=== PATIENT | male | born 1950 | race Caucasian/White ===

== ENCOUNTER 2017-01-10 13:44 | Inpatient (IN) ==
--- NOTE | 2017-01-10 14:21 | Emergency Department Note ---
Disposition Clinical Impression: Congestive heart failure Qualifiers: Congestive heart failure type: unspecified congestive heart failure type Congestive heart failure chronicity: acute Qualified Code(s): I50.9 - Heart failure, unspecified Disposition: Admitted As Inpatient Condition: Good Referrals: Jani Slaughter MD [Primary Care Provider] - Forms: ED Satisfaction Letter Time of Disposition: 15:38 SOB HPI - General Chief Complaint: ED Shortness of Breath/Dyspnea Stated Complaint: "wanting to see if he has water on his lungs" Time Seen by Provider: 01/10/17 14:00 Source: patient, family Mode of arrival: ambulatory Limitations: no limitations Nursing Notes Reviewed: Yes Vital Signs Reviewed: Yes - History of Present Illness 66-year-old with a history CHF comes in with increasing shortness of breath for the last couple of days. His weight is up saw him and he had some chest pain yesterday. Said no recent cardiac workup he does follow with cardiology here. Pt Subjective Complaint: shortness of breath Onset (ago): day(s) Context: other (3 CHF) Severity: mild, moderate, now resolved Consistency/Duration: intermittent, now resolved Improves with: nothing Worsens with: nothing Known history of: congestive heart failure Associated symptoms: Reports: chest pain Treatment prior to arrival: none - Related Data Home Medications Medication Instructions Recorded Confirmed Aspirin Enteric Coated [Aspirin EC] 81 mg PO BID 05/16/15 05/16/15 Atorvastatin [Lipitor] 40 mg PO DAILY 05/16/15 05/16/15 Carvedilol [Coreg] 25 mg PO BID 05/16/15 05/16/15 Clopidogrel [Plavix] 75 mg PO DAILY 05/16/15 05/16/15 Fenofibrate [Lofibra] 145 mg PO DAILY 05/16/15 05/16/15 Isosorbide MONOnitrate (24 HR) 120 mg PO DAILY 05/16/15 05/16/15 [Imdur] Ledipasvir/Sofosbuvir [Harvoni 1 tab PO DAILY 05/16/15 05/16/15 90-400 mg Tablet] Losartan [Cozaar] 25 mg PO DAILY 05/16/15 05/16/15 Potassium Chloride [Klor-Con 10 meq PO DAILY 05/16/15 05/16/15 Sprinkle] Ranolazine [Ranexa] 1,000 mg PO BID 05/16/15 05/16/15 Previous Rx's Medication Instructions Recorded Budesonide/Formoterol 160/4.5 2 puff IH BIDR #1 inhaler 05/21/15 [Symbicort] Furosemide [Lasix] 40 mg PO BID #60 tablet 05/21/15 GuaiFENesin/Codeine [ROBITUSSIN 5 ml PO Q6HR PRN #200 ml 05/21/15 w/CODEINE] Promethazine/Codeine 5 ml PO Q4HR PRN #100 udc 05/21/15 [Phenergan/Codeine] Allergies Allergy/AdvReac Type Severity Reaction Status Date / Time No Known Allergies Allergy Unverified 03/28/15 09:25 All systems ED: reviewed and negative except as stated. Constitutional: Denies: fever, chills, weakness, weight change Eyes: Denies: eye pain, eye discharge, vision change ENT ED: Denies: ear pain, throat pain, dental pain, hearing loss, epistaxis, congestion, dysphagia Cardiovascular: Reports: dyspnea on exertion. Denies: chest pain, palpitations , edema, syncope Respiratory: Reports: dyspnea. Denies: cough, wheezes, hemoptysis, stridor Gastrointestinal: Denies: abdominal pain, nausea, vomiting, diarrhea, constipation, hematemesis, melena, hematochezia Genitourinary: Denies: urgency, dysuria, frequency, hematuria Musculoskeletal: Denies: back pain, neck pain, arthralgia, myalgia Integumentary: Denies: rash, abrasion, lesions Neurological: Denies: headache, weakness, numbness, paresthesias, confusion, abnormal gait, vertigo Psychiatric: Denies: anxiety, depression, suicidal thoughts, homicidal thoughts , auditory hallucinations, visual hallucinations Endocrine: Denies: fatigue Hematological/Lymphatic: Denies: easy bleeding, easy bruising Allergic/Immunologic: Denies: facial swelling, urticaria Past Medical History - Past Medical History Medical history: Reports: CHF, COPD, hyperlipidemia, hypertension Surgical history: Reports: pacemaker/AICD Psychiatric history: Reports: no psych history - Social History Smoking Status: Former smoker Smokeless Tobacco Status: No Alcohol use: Reports: none Drug use: Reports: none Physical Exam - General Limitations: no limitations General appearance: alert - Head Head exam: atraumatic, normocephalic, normal inspection - Eye Eye exam: Present: normal appearance, PERRL, EOMI - ENT ENT exam: normal exam, normal oropharynx, mucous membranes moist - Neck Neck exam: Present: normal inspection, full ROM, trachea midline - Chest Chest inspection: Present: normal inspection, symmetric chest wall rise - Respiratory Respiratory exam: Present: normal lung sounds bilaterally, prolonged expiratory phase - Cardiovascular Cardiovascular exam: Present: regular rate, normal rhythm, normal heart sounds - Abdominal Exam Abdominal exam: Present: soft, Non-Tender. Absent: tenderness, distention, guarding, rebound, rigidity - Extremities Exam Extremities exam: Present: normal inspection, full ROM. Absent: tenderness, pedal edema - Expanded Lower Extremity Exam Neurovascular/Tendon exam: Absent: motor deficit, sensory deficit, tendon deficit - Back Exam Back exam: Present: normal inspection, full ROM. Absent: tenderness - Neurological Exam Neurological exam: Present: alert, oriented X3 - Psychiatric Psychiatric exam: Present: normal affect, normal mood - Skin Skin exam: Present: warm, dry, intact, normal color Course - Reevaluation(s) Reevaluation #1: Patient with a history of CHF comes in with increasing shortness of breath increasing weight. Chest x-ray consistent with the pulmonary edema with an elevated BNP of 925. He will be admitted for diuresis. Time: 15:36 - Consultations Consultation #1: Stressed with Dixon Huerta, admit. Time: 15:41 Vital Signs Temperature 97.4 F L 01/10/17 13:53 Pulse Rate 70 01/10/17 13:53 Respiratory Rate 20 01/10/17 13:53 Blood Pressure 123/80 01/10/17 13:53 O2 Sat by Pulse Oximetry 82 01/10/17 13:53 Temperature 97.4 F L 01/10/17 13:53 Pulse Rate 57 01/10/17 15:09 Respiratory Rate 18 01/10/17 15:09 Blood Pressure 107/66 01/10/17 15:09 O2 Sat by Pulse Oximetry 92 01/10/17 15:16 Oxygen Delivery Oxygen Delivery Nasal Cannula Shortness of Breath/Dyspnea - Lab Data Result diagrams: 01/10/17 14:34 01/10/17 14:34 Lab Results 01/10/17 01/10/17 01/10/17 Range/Units 14:34 14:34 14:34 WBC 7.2 (4.3-11.1) K/mcL RBC 4.60 (4.19-5.50) M/mcL Hgb 15.6 (12.9-16.9) g/dL Hct 47.0 (37.5-50.1) % MCV 102.2 H (83.0-100.0) fL MCH 33.9 H (28.0-33.3) pg MCHC 33.2 (31.6-35.5) g/dL RDW 13.7 (11.5-14.5) % Plt Count 153 (140-400) K/mcL MPV 9.9 (9.4-12.4) fL Immature Gran % 0.4 (0-4) % Seg Neutrophils % 64.8 % Lymphocytes % 24.3 % Monocytes % 5.8 % Eosinophils % 4.0 % Basophils % 0.7 % Neutrophils # 4.7 (1.6-8.9) K/mcL Lymphocytes # 1.8 (0.6-4.6) K/mcL Monocytes # 0.4 (0.0-1.3) K/mcL Eosinophils # 0.3 (0.0-0.6) K/mcL Basophils # 0.1 (0.0-0.2) K/mcL PT 16.3 H (9.4-12.1) Seconds INR 1.5 APTT 30.5 (26.0-36.0) Seconds Sodium 138 (136-145) mEq/L Potassium 3.8 (3.5-4.5) mEq/L Chloride 101 (98-109) mEq/L Carbon Dioxide 27 (19-29) mEq/L BUN 14 (8-26) mg/dL Creatinine 1.07 (0.72-1.25) mg/dL Est GFR ( Amer) > 60 (> 60) Est GFR (Non-Af Amer) > 60 (> 60) BUN/Creatinine Ratio 13 (6-26) Glucose 114 H (70-99) mg/dL Calculated Osmolality 287 (280-300) Lactic Acid (0.5-2.2) mmol/L Calcium 9.7 (8.6-10.8) mg/dL Total Bilirubin (0.2-1.2) mg/dL Direct Bilirubin (0.0-0.5) mg/dL Indirect Bilirubin (0.0-1.2) mg/dL AST (5-34) Units/L ALT (0-55) Units/L Alkaline Phosphatase (38-126) Units/L Troponin I (0-0.03) ng/mL B-Natriuretic Peptide (0-100) pg/mL Serum Total Protein (6.0-8.3) g/dL Albumin (3.5-5.0) g/dL Globulin (2.4-3.5) g/dL Albumin/Globulin Ratio (1.1-2.2) 01/10/17 01/10/17 01/10/17 Range/Units 14:34 14:34 14:34 WBC (4.3-11.1) K/mcL RBC (4.19-5.50) M/mcL Hgb (12.9-16.9) g/dL Hct (37.5-50.1) % MCV (83.0-100.0) fL MCH (28.0-33.3) pg MCHC (31.6-35.5) g/dL RDW (11.5-14.5) % Plt Count (140-400) K/mcL MPV (9.4-12.4) fL Immature Gran % (0-4) % Seg Neutrophils % % Lymphocytes % % Monocytes % % Eosinophils % % Basophils % % Neutrophils # (1.6-8.9) K/mcL Lymphocytes # (0.6-4.6) K/mcL Monocytes # (0.0-1.3) K/mcL Eosinophils # (0.0-0.6) K/mcL Basophils # (0.0-0.2) K/mcL PT (9.4-12.1) Seconds INR APTT (26.0-36.0) Seconds Sodium (136-145) mEq/L Potassium (3.5-4.5) mEq/L Chloride (98-109) mEq/L Carbon Dioxide (19-29) mEq/L BUN (8-26) mg/dL Creatinine (0.72-1.25) mg/dL Est GFR ( Amer) (> 60) Est GFR (Non-Af Amer) (> 60) BUN/Creatinine Ratio (6-26) Glucose (70-99) mg/dL Calculated Osmolality (280-300) Lactic Acid 1.8 (0.5-2.2) mmol/L Calcium (8.6-10.8) mg/dL Total Bilirubin (0.2-1.2) mg/dL Direct Bilirubin (0.0-0.5) mg/dL Indirect Bilirubin (0.0-1.2) mg/dL AST (5-34) Units/L ALT (0-55) Units/L Alkaline Phosphatase (38-126) Units/L Troponin I 0.01 (0-0.03) ng/mL B-Natriuretic Peptide 925 H (0-100) pg/mL Serum Total Protein (6.0-8.3) g/dL Albumin (3.5-5.0) g/dL Globulin (2.4-3.5) g/dL Albumin/Globulin Ratio (1.1-2.2) /11/21 Range/Units 14:34 WBC (4.3-11.1) K/mcL RBC (4.19-5.50) M/mcL Hgb (12.9-16.9) g/dL Hct (37.5-50.1) % MCV (83.0-100.0) fL MCH (28.0-33.3) pg MCHC (31.6-35.5) g/dL RDW (11.5-14.5) % Plt Count (140-400) K/mcL MPV (9.4-12.4) fL Immature Gran % (0-4) % Seg Neutrophils % % Lymphocytes % % Monocytes % % Eosinophils % % Basophils % % Neutrophils # (1.6-8.9) K/mcL Lymphocytes # (0.6-4.6) K/mcL Monocytes # (0.0-1.3) K/mcL Eosinophils # (0.0-0.6) K/mcL Basophils # (0.0-0.2) K/mcL PT (9.4-12.1) Seconds INR APTT (26.0-36.0) Seconds Sodium (136-145) mEq/L Potassium (3.5-4.5) mEq/L Chloride (98-109) mEq/L Carbon Dioxide (19-29) mEq/L BUN (8-26) mg/dL Creatinine (0.72-1.25) mg/dL Est GFR ( Amer) (> 60) Est GFR (Non-Af Amer) (> 60) BUN/Creatinine Ratio (6-26) Glucose (70-99) mg/dL Calculated Osmolality (280-300) Lactic Acid (0.5-2.2) mmol/L Calcium (8.6-10.8) mg/dL Total Bilirubin 3.7 H (0.2-1.2) mg/dL Direct Bilirubin 0.5 (0.0-0.5) mg/dL Indirect Bilirubin 3.2 H (0.0-1.2) mg/dL AST 15 (5-34) Units/L ALT 12 (0-55) Units/L Alkaline Phosphatase 82 (38-126) Units/L Troponin I (0-0.03) ng/mL B-Natriuretic Peptide (0-100) pg/mL Serum Total Protein 7.5 (6.0-8.3) g/dL Albumin 3.7 (3.5-5.0) g/dL Globulin 3.8 H (2.4-3.5) g/dL Albumin/Globulin Ratio 1.0 L (1.1-2.2)
[2017-01-10 14:40] LABS: Basophils # 0.1 K/mcL (0.0-0.2); Basophils % 0.7 %; Eosinophils # 0.3 K/mcL (0.0-0.6); Hemoglobin 15.6 g/dL (12.9-16.9); Immature Granulocytes % 0.4 % (0-4); Lymphocytes # 1.8 K/mcL (0.6-4.6); Lymphocytes % 24.3 %; Mean Corpuscular HGB Conc 33.2 g/dL (31.6-35.5); Mean Corpuscular Hemoglobin 33.9 pg (28.0-33.3); Mean Corpuscular Volume 102.2 fL (83.0-100.0); Mean Platelet Volume 9.9 fL (9.4-12.4); Monocytes # 0.4 K/mcL (0.0-1.3); Monocytes % 5.8 %; Neutrophils # 4.7 K/mcL (1.6-8.9); Platelet Count 153 K/mcL (140-400); Red Cell Distribution Width 13.7 % (11.5-14.5); Segmented Neutrophils % 64.8 %
[2017-01-10 14:47] LABS: INR 1.5; Prothrombin Time 16.3 Seconds (9.4-12.1)
[2017-01-10 14:49] LABS: Activated Partial Thrombo Time 30.5 Seconds (26.0-36.0)
[2017-01-10 14:53] LABS: BUN/Creatinine Ratio 13 (6-26); Blood Urea Nitrogen 14 mg/dL (8-26); Calcium 9.7 mg/dL (8.6-10.8); Carbon Dioxide 27 mEq/L (19-29); Chloride 101 mEq/L (98-109); Glucose 114 mg/dL (70-99); Osmolality,Calculated 287 (280-300); Potassium 3.8 mEq/L (3.5-4.5); Sodium 138 mEq/L (136-145); eGFR For African Americans > 60 (> 60); eGFR For Non-African Americans > 60 (> 60)
[2017-01-10 14:55] LABS: Albumin 3.7 g/dL (3.5-5.0); Bilirubin,Direct 0.5 mg/dL (0.0-0.5); Bilirubin,Indirect 3.2 mg/dL (0.0-1.2); Bilirubin,Total 3.7 mg/dL (0.2-1.2); Globulin 3.8 g/dL (2.4-3.5); Total Protein 7.5 g/dL (6.0-8.3)
[2017-01-10] MEDS ORDERED: Furosemide 40 MG/4 ML VIAL IVP ONE (15:35)
[2017-01-10] MEDS ORDERED: Naloxone 0.4 MG/ML INJ IVP PRN (19:54)
--- NOTE | 2017-01-10 20:29 | Event Note ---
Date of Encounter: 01/10/17 Time of Encounter: 20:29 1. Acute systolic CHF exacerbation The patient has been taking 60 mg of Lasix twice a day for the past couple months without success, he says he drinks 2 jugs of fluids every day. BNP is 925. Discussed with him the option of switching to Bumex and he agrees to take Bumex 1 mg IV twice a day while hospitalized. May discharged on Bumex was feeling better Strict I's and O's and daily weight, echocardiogram 2. History of COPD oxygen dependent, no exacerbation, ordered DuoNeb nebs as needed 3. Hyperlipidemia, stable 4. CAD, stable 5. Indirect hyperbilirubinemia, possible history of hep C Order ultrasound of the abdomen, possible cirrhosis Omeprazole for GI prophylaxis and subcutaneous heparin for deep prophylaxis. The patient will be admitted for observation. Full code. Time spent on this admission 40 minutes. H&P to be completed by Dr. Palacios
--- NOTE | 2017-01-10 20:46 | Internal Med History&Physical ---
<Arjun Browning - Last Filed: 01/10/17 21:03> Date of Encounter: 01/10/17 Time of Encounter: 20:42 Assessment and Plan (1) Acute on chronic systolic (congestive) heart failure Current visit: Yes Status: Acute 66M hx oc asystolic CHF, COPD on 2L O2, hep C complains of worsening sob of 2 weeks Shortness of breath refractory to increasing oxygen supplementation to 2.5 L, increasing Lasix to 60 g twice a day BNP elevated at 925 Lung exam: fine crackles b/l Mild pedal edema Chest x-ray shows bilateral pulmonary edema Echo in 2015: LVEF of 40% with enlarged left atrium, pulmonary hypertension states he is compliant with medicaiton, diet Plan: Repeat echocardiogram: With prior history of pulmonary attention and history of COPD, dyspnea contributing to shortness of breath. Furthermore, worsening LH function may also contribute. Bumex 1 mg BID Strict I's and O's Cardiac diet, fluid restriction diet 1.5L Cardiac telemetry (2) COPD (chronic obstructive pulmonary disease) Current visit: Yes Status: Acute Patient is a history of COPD Currently he is not in any exacerbation We will continue home Symbicort, supplement oxygen and start DuoNeb. Qualifiers: COPD type: emphysema Emphysema type: panlobular Qualified Code(s): J43.1 - Panlobular emphysema (3) CAD (coronary artery disease) Current visit: Yes Status: Acute History of coronary disease, s/p CABG Denies any chest pain. Continue aspirin, atorvastatin, Coreg, Plavix, Imdur, ranolazine Qualifiers: Coronary Disease-Associated Artery/Lesion type: bypass graft [place] vs. transplanted heart: [place] heart Associated angina: without angina Qualified Code(s): I25.810 - Atherosclerosis of coronary artery bypass graft(s) without angina pectoris (4) Hep C w/o coma, chronic Current visit: Yes Status: Chronic Patient history of hep C treating with Michael We will continue this His indirect bilirubin is elevated. albumin WNL We will do a liver ultrasound to identify any stages of cirrhosis which really contributing to shortness of breath/fluid overload state. (5) HTN (hypertension) Current visit: Yes Status: Acute hx of HTN stable continue losartan Qualifiers: Hypertension type: essential hypertension Qualified Code(s): I10 - Essential (primary) hypertension (6) DVT prophylaxis Current visit: Yes Status: Acute Heparin subcutaneous (7) Mediastinal lymphadenopathy Current visit: Yes Status: Chronic patient being followed up outpatient for this last CT scan shows stable mediastinal lymphnode with moderate emphasema and cardiomegaly Internal Medicine - H&P: HPI Chief complaint: Shortness of breath Admitted From: Home Plans for Post Hospital Care: Home History of present illness: Mr. West is a 66 year old male history of COPD, former smoker systolic CHF, hep C, CAD presents with chief complaint of shortness of breath started 2 weeks ago and has progressively worsened with nonproductive cough, lower extremity edema. Shortness of breath proportion to exertion, lying flat. Patient states that he is on 2 L of oxygen at home for COPD, emphysema but he had to increase that to 3 and half liters. Furthermore he had to increase his Lasix regimen of 40 twice a day to 60 BID but this has not helped improve his symptoms. His past echo showed EF of 40% and patient has an AICD. He also has a history of hep C and is on medical therapy. Past Med Surg Social Fam HX - Past Medical History Medical history: CHF, COPD, hyperlipidemia, hypertension, other (Hepatitis C) Psychiatric history: anxiety - Past Surgical History Surgical History: coronary bypass (CABG), herniorrhaphy, pacemaker/AICD - Social History Smoking Status: Former smoker Smokeless Tobacco Status: No Alcohol use: rarely Drug use: none - Family History Mother History Unknown: Yes Adopted: Yes Internal Medicine - H&P: Meds Aspirin Enteric Coated [Aspirin EC] 81 mg PO BID 05/16/15 [History] Atorvastatin [Lipitor] 40 mg PO DAILY 05/16/15 [History] Carvedilol [Coreg] 25 mg PO BID 05/16/15 [History] Clopidogrel [Plavix] 75 mg PO DAILY 05/16/15 [History] Fenofibrate [Lofibra] 145 mg PO DAILY 05/16/15 [History] Isosorbide MONOnitrate (24 HR) [Imdur] 120 mg PO DAILY 05/16/15 [History] Ledipasvir/Sofosbuvir [Harvoni 90-400 mg Tablet] 1 tab PO DAILY 05/16/15 [ History] Losartan [Cozaar] 25 mg PO DAILY 05/16/15 [History] Potassium Chloride [Klor-Con Sprinkle] 10 meq PO DAILY 05/16/15 [History] Ranolazine [Ranexa] 1,000 mg PO BID 05/16/15 [History] Budesonide/Formoterol 160/4.5 [Symbicort] 2 puff IH BIDR #1 inhaler 05/21/15 [Rx ] Furosemide [Lasix] 40 mg PO BID #60 tablet 05/21/15 [Rx] GuaiFENesin/Codeine [ROBITUSSIN w/CODEINE] 5 ml PO Q6HR PRN #200 ml 05/21/15 [Rx ] Promethazine/Codeine [Phenergan/Codeine] 5 ml PO Q4HR PRN #100 udc 05/21/15 [Rx] Allergies No Known Allergies Allergy (Unverified 03/28/15 09:25) All Systems PM: A 10-system review of systems was performed and is negative for pertinent findings except as documented above in the HPI. Review of systems: Constitutional: Denies fever, chills HEENT: Denies headache, vision changes, neck pain, sore throat, rhinorrhea Heart: Denies chest pain palpitations Lungs: Poor shortness of breath and cough Abdomen: Denies abdominal pain nausea vomiting diarrhea Back: Reports back pain Kidney: Denies dysuria, hematuria Extremities: Reports mild lower extremity swelling, denies pain Neuro: Reports chronic numbness and tingling - Constitutional Vitals: Temp Pulse Resp BP Pulse Ox 97.7 F 61 12 117/67 91 01/10/17 19:49 01/10/17 19:49 01/10/17 19:49 01/10/17 19:49 01/10/17 19:49 - Other Additional findings: General: Alert and oriented to place time and situation. Without distress HEENT: Head atraumatic, normocephalic, EOMI, PERRLA, absent Lymphadenopathy, Moist Mucous Membranes, Heart: Regular rate and rhythm with no murmur Lungs: Fine bibasilar crackles Abdomen: Soft nontender, nondistended positive bowel sounds Extremities: Mild pitting edema Neuro: Cranial nerves II through XII intact, sensation equal bilaterally, strength upper and lower extremity 5/5, alert oriented 3 Vascular: Pedal and radial pulses 2 out of 4 Internal Med - H&P Results - Labs CBC & Chem 7: 01/10/17 14:34 01/10/17 14:34 <Bob Miranda H - Last Filed: 01/11/17 06:32> Date of Encounter: 01/11/17 Internal Medicine - H&P: HPI History of present illness: Mr. West is a 66 year old male All Systems PM: A 10-system review of systems was performed and is negative for pertinent findings except as documented above in the HPI. - Constitutional Vitals: Temp Pulse Resp BP Pulse Ox 98.2 F 71 16 100/58 93 01/11/17 03:48 01/11/17 03:48 01/11/17 03:48 01/11/17 03:48 01/11/17 03:48 Internal Med - H&P Results - Labs CBC & Chem 7: 01/11/17 04:24 01/11/17 04:24 Labs: Short CBC 01/11/17 Range/Units 04:24 WBC 7.6 (4.3-11.1) K/mcL Hgb 13.9 D (12.9-16.9) g/dL Hct 42.2 (37.5-50.1) % Plt Count 147 (140-400) K/mcL Neutrophils # 5.0 (1.6-8.9) K/mcL BMP 01/11/17 04:24 Sodium 137 Potassium 3.9 Chloride 102 Carbon Dioxide 28 BUN 14 Creatinine 0.98 Glucose 101 H Calcium 9.3 - Attending Attestation 1. Acute systolic CHF exacerbation The patient has been taking 60 mg of Lasix twice a day for the past couple months without success, he says he drinks 2 jugs of fluids every day. BNP is 925. Discussed with him the option of switching to Bumex and he agrees to take Bumex 1 mg IV twice a day while hospitalized. May be discharged on Bumex if feeling better Strict I's and O's and daily weight, echocardiogram 2. History of COPD oxygen dependent, no exacerbation, ordered DuoNeb nebs as needed 3. Hyperlipidemia, stable 4. CAD, stable 5. Indirect hyperbilirubinemia, possible history of hep C Order ultrasound of the abdomen, possible cirrhosis Omeprazole for GI prophylaxis and subcutaneous heparin for deep prophylaxis. The patient will be admitted for observation. Full code. Time spent on this admission 40 minutes. I examined this patient and my medical decision-making was reviewed with the Resident Physician. I agree with the documented findings, disposition and treatment plan as described except to the extent set forth below.
[2017-01-10] MEDS: Ranolazine 500 MG TAB.ER.12H PO SCH (20:52)
[2017-01-10] MEDS: Aspirin Enteric Coated 81 MG Tablet PO SCH (20:53)
[2017-01-10] MEDS: Fenofibrate 54 MG TABLET PO SCH (20:53)
[2017-01-10] MEDS: *HR* Heparin 5,000 UNIT/ML VIAL SQ SCH (20:55)
[2017-01-10] MEDS: Bumetanide 1 MG/4 ML VIAL IVP SCH (20:56)
[2017-01-10] MEDS: Budesonide/Formoterol 160/4.5 MDI IH SCH (22:40)
[2017-01-10] MEDS: Ipratropium/Albuterol Neb 3 ML IH PRN (22:42)
[2017-01-11 04:55] LABS: Basophils # 0.1 K/mcL (0.0-0.2); Basophils % 0.8 %; Eosinophils # 0.3 K/mcL (0.0-0.6); Eosinophils % 3.4 %; Hematocrit 42.2 % (37.5-50.1); Immature Granulocytes % 0.3 % (0-4); Lymphocytes # 1.7 K/mcL (0.6-4.6); Lymphocytes % 22.5 %; Mean Corpuscular HGB Conc 32.9 g/dL (31.6-35.5); Mean Corpuscular Hemoglobin 33.2 pg (28.0-33.3); Mean Corpuscular Volume 100.7 fL (83.0-100.0); Monocytes # 0.6 K/mcL (0.0-1.3); Monocytes % 7.4 %; Platelet Count 147 K/mcL (140-400); Red Blood Count 4.19 M/mcL (4.19-5.50); Red Cell Distribution Width 13.4 % (11.5-14.5); Segmented Neutrophils % 65.6 %
[2017-01-11 05:00] LABS: BUN/Creatinine Ratio 14 (6-26); Blood Urea Nitrogen 14 mg/dL (8-26); Carbon Dioxide 28 mEq/L (19-29); Chloride 102 mEq/L (98-109); Glucose 101 mg/dL (70-99); Potassium 3.9 mEq/L (3.5-4.5); Sodium 137 mEq/L (136-145); eGFR For African Americans > 60 (> 60); eGFR For Non-African Americans > 60 (> 60)
[2017-01-11 05:01] LABS: Calcium 9.3 mg/dL (8.6-10.8); Hemoglobin 13.9 g/dL (12.9-16.9); Osmolality,Calculated 285 (280-300)
[2017-01-11] MEDS: *HR* Heparin 5,000 UNIT/ML VIAL SQ SCH ×3 (05:45→21:17)
[2017-01-11] MEDS: Budesonide/Formoterol 160/4.5 MDI IH SCH ×2 (07:55→20:36)
[2017-01-11] MEDS: Ipratropium/Albuterol Neb 3 ML IH PRN (07:57)
[2017-01-11] MEDS: Bumetanide 1 MG/4 ML VIAL IVP SCH ×2 (08:53→18:20)
[2017-01-11] MEDS: Fenofibrate 54 MG TABLET PO SCH (08:53)
[2017-01-11] MEDS: SOFOSBUVIR PO SCH (08:55)
[2017-01-11] MEDS: Aspirin Enteric Coated 81 MG Tablet PO SCH ×2 (08:55→21:17)
[2017-01-11] MEDS: Ranolazine 500 MG TAB.ER.12H PO SCH ×2 (08:55→21:16)
[2017-01-11] MEDS: LEDIPASVIR PO SCH (08:55)
[2017-01-11] MEDS: Isosorbide MONOnitrate (24 HR) 60 MG TAB.ER.24H PO SCH (08:55)
[2017-01-11] MEDS ORDERED: Fenofibrate 54 MG TABLET PO SCH (09:00)
--- NOTE | 2017-01-11 15:23 | Electrocardiograph Report ---
[address] [place] [address] Test Date: 2017-01-10 Pat Name: Eric West Department: 104 Room: 3B44 Gender: M Nurse Prn: : 1950 Requested By: Praveen Diaz Order Number: [id number] Reading MD: Brian Ferraro MD Measurements Intervals [place] Rate: 60 P: -47 LA: 195 QRS: -44 QRSD: 172 T: -4 QT: 528 QTc: 528 Interpretive Statements SINUS RHYTHM WITH PVCS RIGHT BUNDLE BRANCH BLOCK LEFT VENTRICULAR HYPERTROPHY AND ST-T CHANGE INFERIOR MYOCARDIAL INFARCTION, PROBABLY OLD Electronically Signed On 01-11-2017 8:15:26 EDT by Brian Ferraro MD
--- NOTE | 2017-01-11 18:53 | Internal Med Progress Note ---
Date of Encounter: 01/11/17 Time of Encounter: 15:45 - Assessment and plan (1) Acute on chronic systolic (congestive) heart failure Current Visit: Yes Status: Acute Assessment and plan: Patient with history of systolic heart failure, acute exacerbation. Reports increasing shortness of breath and abdominal distention for 4-6 weeks. He reports respiratory failure with increased oxygen demand for the last 2-3 months. Patient also has history of COPD. BNP is elevated at 925. Lungs clear diminished posteriorly. +1 bilateral lower extremity nonpitting pedal edema. Chest x-ray showed bilateral pulmonary edema. Echocardiogram today showed LVEF of 35% with mildly dilated left ventricle. There is global segmental LV systolic dysfunction with indeterminate diastolic function. RV hypokinesis, mild MR and a visualized device lead in right atrium and right ventricle. The study is primarily unchanged from last echocardiogram in 2014, at that time LVEF is 40%. Continue telemetry Bumex 1 mg twice a day Strict intake and output Cardiac diet and fluid restriction 1.5 L. Cardiology consult if no improvement (2) Hypoxia Current Visit: No Status: Acute Assessment and plan: Patient reports hypoxia at home with exertion even when wearing O2. He reports increased O2 demand for the last 2-3 months. Currently wearing 4 L and satting anywhere from 90-93%. Titrate oxygen to maintain sats greater than 92%. (3) CAD (coronary artery disease) Current Visit: Yes Status: Acute Assessment and plan: History of coronary artery disease, status post CABG. He denies chest pain today. Continue aspirin, statin, Coreg, Plavix, Imdur, ranolazine. Continue telemetry. Qualifiers: Coronary Disease-Associated Artery/Lesion type: bypass graft [place] vs. transplanted heart: [place] heart Associated angina: without angina Qualified Code(s): I25.810 - Atherosclerosis of coronary artery bypass graft(s) without angina pectoris (4) COPD (chronic obstructive pulmonary disease) Current Visit: Yes Status: Acute Assessment and plan: No acute exacerbation. Continue oxygen and titrate as needed to maintain sats greater than 92%. Continue home medications. Lungs are clear and diminished. Duo nebs as needed. Patient reports dry, nonproductive cough for the last 4-6 months intermittently. Qualifiers: COPD type: emphysema Emphysema type: panlobular Qualified Code(s): J43.1 - Panlobular emphysema (5) Hep C w/o coma, chronic Current Visit: Yes Status: Chronic Assessment and plan: History of hepatitis C, patient finished Harvoni treatment. Follow-up outpatient for further evaluation. Patient had a liver ultrasound today that showed coarsened hepatic echotexture and subtle surface nodularity suggesting early cirrhosis. No suspicious focal lesion. Otherwise normal study. Patient is aware of these findings. (6) HTN (hypertension) Current Visit: Yes Status: Acute Assessment and plan: Chronic. Continue home medications. Patient appears to be a little hypotensive. Hold blood pressure medications for systolic below 100. Qualifiers: Hypertension type: essential hypertension Qualified Code(s): I10 - Essential (primary) hypertension (7) HLD (hyperlipidemia) Current Visit: No Status: Acute Assessment and plan: Chronic. Continue home medications. Lipitor 40 mg by mouth daily. Qualifiers: Hyperlipidemia type: unspecified Qualified Code(s): E78.5 - Hyperlipidemia , unspecified (8) Mediastinal lymphadenopathy Current Visit: Yes Status: Chronic - Time Spent With Patient less than 15 minutes - Subjective Interval history: Patient was seen and assessed at 1545. He reports a lengthy history of abdominal distention and shortness of breath for 6-8 weeks. He has had a nonproductive cough for 4-6 months that is intermittent and dry. Recent diagnosis of COPD/emphysema with home O2. Patient states that he has taken prednisone and has become better temporarily. He reports that he has had increased oxygen demand 2-3 months and has had to wear 4 L at home. Currently is on 4 L satting 90-93%. He reports for over the last 2-3 months even when he has his oxygen on he becomes hypoxic with exertion and states that his sats would drop below 90. He does see pulmonology here. He says he is unable to do pulmonary rehabilitation due to chronic pain and decreased mobility. - Constitutional Vitals: Temp Pulse Resp BP Pulse Ox 97.7 F 68 17 90/47 91 01/11/17 14:26 01/11/17 14:26 01/11/17 14:26 01/11/17 14:26 01/11/17 14:26 General appearance: Present: cooperative, A&O X 3, pleasant, no acute distress, answers questions appropriately - Head Head exam: Present: normal inspection - Eye Eye exam: Present: normal appearance, conjuntiva pink - ENT ENT exam: Present: mucous membranes moist, normal exam - Neck Neck exam general surgery: Present: normal inspection. Absent: lymphadenopathy , tenderness - Respiratory Respiratory exam: Present: decreased breath sounds, CTAB. Absent: accessory muscle use, chest wall tenderness, rales, rhonchi, stridor, wheezes - Cardiovascular Cardiovascular exam: Present: RRR, +S1, +S2. Absent: clicks, diastolic murmur, gallop, systolic murmur - GI/Abdominal GI/Abdominal exam: Present: distended, firm. Absent: bruit, hepatomegaly, tenderness - Extremities Exam Extremities exam: Present: normal capillary refill, warm, radial pulses palpable and symetrical. Absent: joint swelling, mottling, pedal edema, tenderness - Neurological Exam Neurological exam: Present: alert, oriented X3, no focal deficits, strengths equal and symetr throughout. Absent: facial droop, speech deficit - Skin Skin exam: Present: dry, intact, normal color, warm. Absent: rash, urticaria Internal Medicine: Result - Labs CBC & Chem 7: 01/11/17 04:24 01/11/17 04:24 Labs: Short CBC 01/11/17 Range/Units 04:24 WBC 7.6 (4.3-11.1) K/mcL Hgb 13.9 D (12.9-16.9) g/dL Hct 42.2 (37.5-50.1) % Plt Count 147 (140-400) K/mcL Neutrophils # 5.0 (1.6-8.9) K/mcL BMP 01/11/17 04:24 Sodium 137 Potassium 3.9 Chloride 102 Carbon Dioxide 28 BUN 14 Creatinine 0.98 Glucose 101 H Calcium 9.3 - ABG Interpretation ABG results: PT/INR, D-dimer PT 16.3 Seconds (9.4-12.1) H 01/10/17 14:34 - Impressions Impressions Liver Ultrasound 01/11/17 10:30 IMPRESSION: 1. Coarsened hepatic echotexture and subtle surface nodularity suggesting early cirrhosis. No suspicious focal lesion. 2. Otherwise normal study. D/ / Josesito Padron MD / Josesito Padron MD Interpreting Provider: Josesito Padron MD Echocardiogram 01/11/17 19:57 Impressions: LVEF 35%. Mildly dilated left ventricle. Global and segmental left ventricular systolic dysfunction. Indeterminate diastolic function. Normal right ventriclular size with mild hypokinesis. Mild mitral regurgitation. No evidence of pulmonary hypertension. A device lead was visualized in the right atrium and right ventricle. Left Ventricular Wall Motion: Rest Echo Findings The apex, apical anterior, mid anterior, basal anterior, apical septal, mid inferior septal, basal inferior septal, apical lateral, mid anterior lateral, basal anterior lateral, mid anterior septal and basal anterior septal [place] were hypokinetic. The apical inferior, mid inferior, basal inferior, mid inferior lateral and basal inferior lateral port[place] were akinetic. Findings: Study Quality * Technically adequate exam. ECG Findings * Paced rhythm. Left Ventricle * LVEF 35%. * Normal LV wall thickness. * Mildly dilated left ventricle. * Global and segmental left ventricular systolic dysfunction. * Atypical septal motion consistent with paced rhythm. * Indeterminate diastolic function. Right Ventricle * Normal right ventriclular size with mild hypokinesis. Left Atrium * Moderately dilated left atrium. Right Atrium * Moderately dilated right atrium. Interatrial Septum * Interatrial septum not well evaluated. Aortic Valve * Trileaflet aortic valve. * Mildly calcified aortic valve leaflets. * Trace aortic regurgitation. * No aortic stenosis. Mitral Valve * Mildly thickened mitral valve leaflets. * Mild mitral regurgitation. * No mitral stenosis. Tricuspid Valve * Normal tricuspid valve structure and function. * Trace tricuspid regurgitation. * No evidence of pulmonary hypertension. Pulmonic Valve * Normal pulmonic valve structure and function. * Trace pulmonic regurgitation. Aorta * Normally sized aortic root. Pericardium * The pericardium appears normal. IVC * Normal IVC dimensions and inspiratory collapse. Pulmonary Artery * Normal visualized portions of the main pulmonary artery. Device lead * A device lead was visualized in the right atrium and right ventricle. Consult Discharge Plan - Plan Referrals: Jani Slaughter MD [Primary Care Provider] -
[2017-01-12] MEDS ORDERED: Acetaminophen 325 MG TABLET PO PRN (00:59)
[2017-01-12 05:12] LABS: Basophils # 0.1 K/mcL (0.0-0.2); Eosinophils # 0.3 K/mcL (0.0-0.6); Eosinophils % 4.6 %; Hematocrit 44.9 % (37.5-50.1); Hemoglobin 15.1 g/dL (12.9-16.9); Immature Granulocytes % 0.4 % (0-4); Lymphocytes # 1.7 K/mcL (0.6-4.6); Lymphocytes % 25.2 %; Mean Corpuscular HGB Conc 33.6 g/dL (31.6-35.5); Mean Corpuscular Hemoglobin 33.8 pg (28.0-33.3); Mean Corpuscular Volume 100.4 fL (83.0-100.0); Mean Platelet Volume 11.4 fL (9.4-12.4); Monocytes # 0.4 K/mcL (0.0-1.3); Monocytes % 6.3 %; Neutrophils # 4.2 K/mcL (1.6-8.9); Platelet Count 169 K/mcL (140-400); Red Blood Count 4.47 M/mcL (4.19-5.50); Red Cell Distribution Width 13.4 % (11.5-14.5); Segmented Neutrophils % 62.5 %
[2017-01-12 05:20] LABS: BUN/Creatinine Ratio 13 (6-26); Blood Urea Nitrogen 14 mg/dL (8-26); Calcium 9.6 mg/dL (8.6-10.8); Carbon Dioxide 25 mEq/L (19-29); Chloride 102 mEq/L (98-109); Glucose 113 mg/dL (70-99); Osmolality,Calculated 283 (280-300); Sodium 136 mEq/L (136-145); eGFR For African Americans > 60 (> 60); eGFR For Non-African Americans > 60 (> 60)
[2017-01-12 05:22] LABS: Potassium 3.7 mEq/L (3.5-4.5)
[2017-01-12] MEDS: *HR* Heparin 5,000 UNIT/ML VIAL SQ SCH ×3 (05:49→21:45)
[2017-01-12] MEDS: Budesonide/Formoterol 160/4.5 MDI IH SCH ×2 (08:31→20:42)
[2017-01-12] MEDS: ZETIA 10 MG PO SCH (10:17)
[2017-01-12] MEDS: Bumetanide 1 MG/4 ML VIAL IVP SCH ×2 (10:18→17:24)
[2017-01-12] MEDS: Isosorbide MONOnitrate (24 HR) 60 MG TAB.ER.24H PO SCH (10:18)
[2017-01-12] MEDS: LEDIPASVIR PO SCH (10:18)
[2017-01-12] MEDS: Fenofibrate 54 MG TABLET PO SCH (10:18)
[2017-01-12] MEDS: SOFOSBUVIR PO SCH (10:18)
[2017-01-12] MEDS: Aspirin Enteric Coated 81 MG Tablet PO SCH ×2 (10:18→21:45)
[2017-01-12] MEDS: Ranolazine 500 MG TAB.ER.12H PO SCH ×2 (10:19→21:47)
[2017-01-12] MEDS: Ipratropium/Albuterol Neb 3 ML IH PRN (13:46)
--- NOTE | 2017-01-12 16:48 | Internal Med Progress Note ---
Date of Encounter: 01/12/17 Time of Encounter: 15:00 - Assessment and plan (1) Congestive heart failure Current Visit: Yes Status: Acute Assessment and plan: Acute on chronic combined systolic and diastolic heart failure. Current ejection fraction is 35%, prior ejection fraction 40%. Indeterminate diastolic function. Patient is on furosemide at home, changed to Bumex during this admission. No pedal edema. Patient has continued increased need for oxygenation. At home, he is on 2 L continuously, he is on 4.5 here and he continues to be short of breath above his norm. Repeat chest CT pending. Holding his Bumex at this time secondary to hypotension. Of note, patient is aware that he is on a 1.5 L fluid restricted diet however yesterday, he only drank about 500 mL. He was instructed not to drink less than 1.5 L or more. Renal function remains normal-Will trend. Breath sounds are diminished bilateral lower lobes, repeat imaging and ABGs pending. Examination is not consistent with COPD exacerbation. BNP trending down. ITS Impressions Chest X-Ray 01/10/17 14:01 IMPRESSION: Borderline pulmonary vascular congestion and subtle hazy opacity throughout both lungs raises the possibility of early pulmonary edema. D/ / Stefano Rhodes MD / Stefano Rhodes MD Interpreting Provider: Stefano Rhodes MD Liver Ultrasound 01/11/17 10:30 IMPRESSION: 1. Coarsened hepatic echotexture and subtle surface nodularity suggesting early cirrhosis. No suspicious focal lesion. 2. Otherwise normal study. D/ / Josesito Padron MD / Josesito Padron MD Interpreting Provider: Josesito Padron MD :4 Echocardiogram 01/11/17 19:57 Impressions: LVEF 35%. Mildly dilated left ventricle. Global and segmental left ventricular systolic dysfunction. Indeterminate diastolic function. Normal right ventriclular size with mild hypokinesis. Mild mitral regurgitation. No evidence of pulmonary hypertension. A device lead was visualized in the right atrium and right ventricle. Qualifiers: Congestive heart failure type: combined Congestive heart failure chronicity : acute on chronic Qualified Code(s): I50.43 - Acute on chronic combined systolic (congestive) and diastolic (congestive) heart failure (2) COPD (chronic obstructive pulmonary disease) Current Visit: Yes Status: Chronic Assessment and plan: It does not appear as if the patient is an acute exacerbation of his COPD. No wheezing appreciated on examination. Consistent more with pulmonary edema and fluid overload. Patient is on 2 L per nasal cannula continuously at home. He stopped smoking 20 years ago. Patient stating he has only been on oxygen for the past 2 years. He does have a moist, nonproductive cough, will add mucolytics. He also endorses shortness of breath above his norm, will increase DuoNeb treatments. Qualifiers: COPD type: emphysema Emphysema type: panlobular Qualified Code(s): J43.1 - Panlobular emphysema (3) Acute encephalopathy Current Visit: Yes Status: Resolved Assessment and plan: Patient had an episode overnight in which he woke up sweating and hot, then he started to see "little people like they were in a [employer] game" where the sharps container is located. Patient fully remembers this episode. He states that he called for help and states that he felt better after drinking a whole can of Sprite. He states that he was unable to go back to bed. Unclear causation, could be delirium. Could be hypoxia with possible CO2 retention-checking ABGs and repeat chest CT. Patient is also noted to be on rather high doses of Valium and oxycodone confirmed with [facility] report and continued at this time as he has been on these dosages for quite some time and he could be going through withdrawal as well. LFTs were normal upon arrival, hepatic encephalopathy less likely. He has been alert and oriented x3 without any further episodes since last night. (4) CAD (coronary artery disease) Current Visit: Yes Status: Chronic Assessment and plan: History of coronary artery disease, status post CABG. Continues to deny chest pain. Continue aspirin, statin, Coreg, Plavix, Imdur, ranolazine. Continue telemetry. Qualifiers: Coronary Disease-Associated Artery/Lesion type: bypass graft [place] vs. transplanted heart: [place] heart Associated angina: without angina Qualified Code(s): I25.810 - Atherosclerosis of coronary artery bypass graft(s) without angina pectoris (5) Hep C w/o coma, chronic Current Visit: Yes Status: Chronic Assessment and plan: History of hepatitis C, patient finished Harvoni treatment. LFTs normal. Patient denies abdominal pain. No jaundice on examination. Liver ultrasound consistent with early cirrhosis. Patient is aware of these findings and will followup outpatient. (6) HTN (hypertension) Current Visit: Yes Status: Chronic Assessment and plan: Currently hypotensive. Holding diuretics and his ARB. He remains alert and oriented x3 with good perfusion throughout. ABGs and chest CT pending. Hold blood pressure medications for systolic below 100. Will continue to trend and adjust medications as indicated Qualifiers: Hypertension type: essential hypertension Qualified Code(s): I10 - Essential (primary) hypertension (7) HLD (hyperlipidemia) Current Visit: No Status: Chronic Assessment and plan: Chronic. Lipid panel checked earlier this month, unremarkable. Continue home medications. Lipitor 40 mg by mouth daily. (8) Pacemaker Current Visit: No Status: Chronic (9) Mediastinal lymphadenopathy Current Visit: Yes Status: Chronic Assessment and plan: Stable per imaging, follow-up outpatient (10) DVT prophylaxis Current Visit: Yes Status: Acute Assessment and plan: Subcutaneous heparin - Subjective Interval history: Patient seen and examined. On examination, patient resting supine in bed. Patient endorsing shortness of breath above his norm stating he is not yet feeling better since admission. He is endorsing a moist, unproductive cough. He is very upset regarding the event overnight in which he became hot, sweaty, and started to hallucinate. - Constitutional Vitals: Temp Pulse Resp BP Pulse Ox 98.3 F 94 14 75/42 89 01/12/17 15:07 01/12/17 15:07 01/12/17 15:07 01/12/17 15:07 01/12/17 15:07 General appearance: Present: cooperative, mild distress, A&O X 3, pleasant, answers questions appropriately - Head Head exam: Present: atraumatic, normocephalic - Eye Eye exam: Present: PERRL, conjuntiva pink, sclera anicteric Pupils: Present: PERRL - Neck Neck exam general surgery: Present: supple, trachea midline. Absent: lymphadenopathy - Respiratory Respiratory exam: Present: accessory muscle use, decreased breath sounds, respiratory distress (mild). Absent: rales, rhonchi, wheezes - Cardiovascular Cardiovascular exam: Present: RRR, +S1, +S2. Absent: diastolic murmur, gallop, rubs, systolic murmur - GI/Abdominal GI/Abdominal exam: Present: normal bowel sounds, soft, no peritoneal signs. Absent: distended, tenderness - Extremities Exam Extremities exam: Present: warm, radial pulses palpable and symmetrical. Absent : calf tenderness, cyanotic, pedal edema - Neurological Exam Neurological exam: Present: alert, CN II-XII intact, normal gait, oriented X3, no focal deficits, strengths equal and symetr throughout. Absent: pronater drift, facial droop, speech deficit - Skin Skin exam: Present: dry, intact, normal color, warm Internal Medicine: Result - Labs CBC & Chem 7: 01/12/17 04:20 01/12/17 04:20 Labs: Short CBC 01/12/17 Range/Units 04:20 WBC 6.7 (4.3-11.1) K/mcL Hgb 15.1 (12.9-16.9) g/dL Hct 44.9 (37.5-50.1) % Plt Count 169 (140-400) K/mcL Neutrophils # 4.2 (1.6-8.9) K/mcL BMP 01/12/17 04:20 Sodium 136 Potassium 3.7 Chloride 102 Carbon Dioxide 25 BUN 14 Creatinine 1.10 Glucose 113 H Calcium 9.6 - ABG Interpretation ABG results: PT/INR, D-dimer PT 16.3 Seconds (9.4-12.1) H 01/10/17 14:34 Consult Discharge Plan - Plan Referrals: Jani Slaughter MD [Primary Care Provider] -
[2017-01-12] MEDS: diazePAM 5 MG TABLET PO SCH ×2 (17:27→23:38)
[2017-01-12] MEDS: *HR* OxyCODONE Immed Rel 15 MG TABLET PO SCH ×2 (17:27→23:38)
[2017-01-12 18:42] LABS: ABG Base Excess 1.6 mEq/L (-2.0 to 3.0); ABG HCO3 25.9 mEQ/L (21-27); ABG Oxygen Saturation 91 % (95-98); ABG PCO2 39 mmHg (35-45); ABG PH 7.43 pH Units (7.32-7.45); ABG PO2 58 mmHg (85-104); ABG TCO2 27.1 mEq/L (20-26)
[2017-01-12] MEDS: Ipratropium/Albuterol Neb 3 ML IH SCH (20:39)
[2017-01-13] MEDS: Ipratropium/Albuterol Neb 3 ML IH SCH ×6 (00:20→20:47)
[2017-01-13] MEDS: *HR* OxyCODONE Immed Rel 15 MG TABLET PO SCH ×6 (01:59→21:41)
[2017-01-13] MEDS: *HR* Heparin 5,000 UNIT/ML VIAL SQ SCH ×3 (05:41→21:30)
[2017-01-13] MEDS: diazePAM 5 MG TABLET PO SCH ×5 (05:42→23:24)
[2017-01-13 06:44] LABS: Basophils # 0.1 K/mcL (0.0-0.2); Eosinophils # 0.4 K/mcL (0.0-0.6); Eosinophils % 4.4 %; Hematocrit 42.1 % (37.5-50.1); Hemoglobin 13.9 g/dL (12.9-16.9); Immature Granulocytes % 0.4 % (0-4); Lymphocytes # 2.1 K/mcL (0.6-4.6); Lymphocytes % 26.3 %; Mean Corpuscular Hemoglobin 33.7 pg (28.0-33.3); Mean Corpuscular Volume 101.9 fL (83.0-100.0); Mean Platelet Volume 11.1 fL (9.4-12.4); Monocytes # 0.5 K/mcL (0.0-1.3); Monocytes % 6.7 %; Neutrophils # 4.9 K/mcL (1.6-8.9); Platelet Count 162 K/mcL (140-400); Red Blood Count 4.13 M/mcL (4.19-5.50); Red Cell Distribution Width 13.4 % (11.5-14.5); Segmented Neutrophils % 61.2 %
[2017-01-13 07:02] LABS: BUN/Creatinine Ratio 11 (6-26); Blood Urea Nitrogen 14 mg/dL (8-26); Calcium 9.3 mg/dL (8.6-10.8); Carbon Dioxide 30 mEq/L (19-29); Chloride 99 mEq/L (98-109); Glucose 118 mg/dL (70-99); Osmolality,Calculated 284 (280-300); Potassium 4.1 mEq/L (3.5-4.5); Sodium 136 mEq/L (136-145); eGFR For African Americans > 60 (> 60); eGFR For Non-African Americans 57 (> 60)
[2017-01-13] MEDS: Budesonide/Formoterol 160/4.5 MDI IH SCH ×2 (08:05→20:47)
[2017-01-13] MEDS: Isosorbide MONOnitrate (24 HR) 60 MG TAB.ER.24H PO SCH (10:09)
[2017-01-13] MEDS: Fenofibrate 54 MG TABLET PO SCH (10:09)
[2017-01-13] MEDS: Ranolazine 500 MG TAB.ER.12H PO SCH ×2 (10:09→20:22)
[2017-01-13] MEDS: Aspirin Enteric Coated 81 MG Tablet PO SCH ×2 (10:09→20:22)
[2017-01-13] MEDS: ZETIA 10 MG PO SCH (10:10)
[2017-01-13] MEDS: LEDIPASVIR PO SCH (10:11)
[2017-01-13] MEDS: SOFOSBUVIR PO SCH (10:11)
--- NOTE | 2017-01-13 20:19 | Internal Med Progress Note ---
Date of Encounter: 01/13/17 Time of Encounter: 18:00 (x45 minutes) - Assessment and plan (1) Congestive heart failure Current Visit: Yes Status: Acute Assessment and plan: Acute on chronic combined systolic and diastolic heart failure. Current ejection fraction is 35%, prior ejection fraction 40%. Indeterminate diastolic function. Patient is on furosemide at home, changed to Bumex during this admission but currently being held 2/2 NIDHI overnight. No pedal edema. Patient has continued increased need for oxygenation. At home, he is on 2 L continuously. He was on 4.5 L here and is currently tolerating 4 L. However, with slight movement or even standing up to brush his teeth, patient desaturates into the low 80s and upper 70s. Repeat chest CT revealing chronic ILD versus mild edema. CTA was performed which ruled out a PE and again revealed his severe emphysema and fibrosis without acute processes. His mediastinal lymphadenopathy is also unchanged. He is compensating well, ABGs unremarkable. On examination, mildly increased work of breathing but overall, he appears comfortable but he is very anxious on examination. BNP trended down. Unclear causation at this time, we will bring pulmonology on board and appreciate their recommendations. Of note, his daughter is a nurse here and asked several questions. She asked if he would benefit from BiPAP however he is compensated clinically and does not clinically need BiPAP at this time. Would try to avoid BiPAP given that he has severe emphysema. Would add CPAP if clinically indicated although at this point, it is currently not indicated. She also asked if I thought a bronchoscopy would benefit him, I do not see any reason for bronchoscopy at this time. There is no evidence that there is any type of infectious process in his lungs. I have added high-dose IV methylprednisolone, will monitor. I have increased his mucolytic's, he feels as if his mucus is loosened up a little bit but his cough remains nonproductive. Appreciate pulmonology recommendations- will call in am. ITS Impressions Chest X-Ray 01/10/17 14:01 IMPRESSION: Borderline pulmonary vascular congestion and subtle hazy opacity throughout both lungs raises the possibility of early pulmonary edema. D/ / Stefano Rhodes MD / Stefano Rhodes MD Interpreting Provider: Stefano Rhodes MD Liver Ultrasound 01/11/17 10:30 IMPRESSION: 1. Coarsened hepatic echotexture and subtle surface nodularity suggesting early cirrhosis. No suspicious focal lesion. 2. Otherwise normal study. D/ / Josesito Padron MD / Josesito Padron MD Interpreting Provider: Josesito Padron MD :4 Echocardiogram 01/11/17 19:57 Impressions: LVEF 35%. Mildly dilated left ventricle. Global and segmental left ventricular systolic dysfunction. Indeterminate diastolic function. Normal right ventriclular size with mild hypokinesis. Mild mitral regurgitation. No evidence of pulmonary hypertension. A device lead was visualized in the right atrium and right ventricle. Chest CT 01/12/17 16:33 IMPRESSION: There is mild diffuse septal thickening possibly related to very early developing mild edema or chronic interstitial lung disease. There is slightly more focal bibasilar dependent opacities, likely related to atelectasis. D/ / Terri Bryan MD / Terri Bryan MD Interpreting Provider: Terri Bryan MD Chest CTA 01/13/17 15:42 IMPRESSION: 1. No evidence of pulmonary embolism. 2. Continued evidence of severe emphysema and fibrosis in the lower lungs. 3. Dependent atelectasis bilaterally. 4. Mild mediastinal lymphadenopathy, unchanged. D/ / Stefano Rhodes MD / Stefano Rhodes MD Interpreting Provider: Stefano Rhodes MD Qualifiers: Congestive heart failure type: combined Congestive heart failure chronicity : acute on chronic Qualified Code(s): I50.43 - Acute on chronic combined systolic (congestive) and diastolic (congestive) heart failure (2) COPD (chronic obstructive pulmonary disease) Current Visit: Yes Status: Chronic Assessment and plan: It does not appear as if the patient is an acute exacerbation of his COPD however will treat as he continues with shortness of breath above his norm as well as marked desaturations with minimal exertion. No wheezing appreciated on examination. Consistent more with pulmonary edema and fluid overload; Pulmonology now onboard. Patient is on 2 L per nasal cannula continuously at home. He stopped smoking 20 years ago. Patient stating he has only been on oxygen for the past 2 years. He does have a moist, nonproductive cough, will increase his mucolytics. He also endorses shortness of breath above his norm despite increased DuoNeb treatments. He was not clinically improving so he sought a second opinion from another demonstrator knitting from [place] (Dr Linder) who started him on a new inhaler called Stiolo with tiotropium and oloctaterol. He states he was on this new inhaler for 4 days prior to presentation and felt as if it did not work as well as his Symbicort. At home, patient is only on Symbicort and now Stiolo (which is essentially Spiriva (LAAC) with a LABA). Basically, patient was changed from an inhaler with a LABA + INH glucocort to an inhaler with a LABA and an LAAC. If he is to remain on this new inhaler, would recommend adding back in an inhaled glucocorticoid i.e. budesonide. Appreciate pulmonology recommendations as well. Unclear why he is clinically decompensating and has increased need for oxygenation. Appreciate pulmonology recommendations. Qualifiers: COPD type: emphysema Emphysema type: panlobular Qualified Code(s): J43.1 - Panlobular emphysema (3) Acute and chronic respiratory failure Current Visit: Yes Status: Acute Assessment and plan: Unclear causation. Could be natural progression of his severe emphysema and COPD however he has not smoked in 20 years, is not exposed to any cigarette smoke. Unclear causation on his decline over the past 2 years and more specifically over the past couple weeks. Pulmonology is now on board. He has been on 2 L per nasal cannula continuously for the past 2 years. His family states that he had bronchitis, was admitted, was placed on supplemental oxygen 2 years ago, and has never been taken back off. He is currently requiring 4 L continuously (4) Acute encephalopathy Current Visit: Yes Status: Resolved Assessment and plan: Patient remains alert and oriented 3 with no further episodes of confusion or hallucinations. 01/12/17 Patient had an episode overnight in which he woke up sweating and hot, then he started to see "little people like they were in a casino game" where the sharps container is located. Patient fully remembers this episode. He states that he called for help and states that he felt better after drinking a whole can of Sprite. He states that he was unable to go back to bed. Unclear causation, could be delirium. Could be hypoxia with possible CO2 retention-checking ABGs and repeat chest CT. Patient is also noted to be on rather high doses of Valium and oxycodone confirmed with [facility] report and continued at this time as he has been on these dosages for quite some time and he could be going through withdrawal as well. LFTs were normal upon arrival, hepatic encephalopathy less likely. He has been alert and oriented x3 without any further episodes since last night. (5) CAD (coronary artery disease) Current Visit: Yes Status: Chronic Assessment and plan: History of coronary artery disease, status post CABG. Continues to deny chest pain. Continue aspirin, statin, Coreg, Plavix, Imdur, ranolazine. Continue telemetry. Qualifiers: Coronary Disease-Associated Artery/Lesion type: bypass graft [place] vs. transplanted heart: [place] heart Associated angina: without angina Qualified Code(s): I25.810 - Atherosclerosis of coronary artery bypass graft(s) without angina pectoris (6) Hep C w/o coma, chronic Current Visit: Yes Status: Chronic Assessment and plan: History of hepatitis C, patient finished Harvoni treatment. LFTs normal. Patient denies abdominal pain. No jaundice on examination. Liver ultrasound consistent with early cirrhosis. Patient is aware of these findings and will followup outpatient. (7) HTN (hypertension) Current Visit: Yes Status: Chronic Assessment and plan: Hypotensive yesterday, held his diuretics and his ARB. Currently normotensive, will continue to trend and adjust medications as indicated. Qualifiers: Hypertension type: essential hypertension Qualified Code(s): I10 - Essential (primary) hypertension (8) HLD (hyperlipidemia) Current Visit: No Status: Chronic Assessment and plan: Chronic. Lipid panel checked earlier this month, unremarkable. Continue home medications. Lipitor 40 mg by mouth daily. (9) Pacemaker Current Visit: No Status: Chronic (10) Mediastinal lymphadenopathy Current Visit: Yes Status: Chronic Assessment and plan: Stable per imaging, follow-up outpatient (11) DVT prophylaxis Current Visit: Yes Status: Acute Assessment and plan: Subcutaneous heparin - Time Spent With Patient Greater than 35 minutes (lengthy discussion wiht patient, and daughter) - Subjective Interval history: Patient seen and examined. Spoke to the patient, his , and his daughter at great length. Patient and family are concerned that he continues to decompensate with unknown etiology. They are concerned that he continues to be more short of breath than usual, he continues to need more and more oxygen. They are very concerned about the downward trajectory over the last 2 years but more specifically over the past week or 2. Patient stating he is eating well. He states he was able to sleep better last night and denies any events overnight. - Constitutional Vitals: Temp Pulse Resp BP Pulse Ox 97.8 F 86 16 119/75 88 01/13/17 19:02 01/13/17 19:02 01/13/17 19:02 01/13/17 19:02 01/13/17 19:02 General appearance: Present: cooperative, mild distress, A&O X 3, pleasant, answers questions appropriately - Head Head exam: Present: atraumatic, normocephalic - Eye Eye exam: Present: PERRL, conjuntiva pink, sclera anicteric Pupils: Present: PERRL - Neck Neck exam general surgery: Present: supple, trachea midline. Absent: lymphadenopathy - Respiratory Respiratory exam: Present: accessory muscle use, decreased breath sounds, respiratory distress (mild). Absent: rales, rhonchi, wheezes - Cardiovascular Cardiovascular exam: Present: RRR, +S1, +S2. Absent: diastolic murmur, gallop, rubs, systolic murmur - GI/Abdominal GI/Abdominal exam: Present: normal bowel sounds, soft, no peritoneal signs. Absent: distended, tenderness - Extremities Exam Extremities exam: Present: warm, radial pulses palpable and symmetrical. Absent : calf tenderness, cyanotic, pedal edema - Neurological Exam Neurological exam: Present: alert, CN II-XII intact, oriented X3, no focal deficits, strengths equal and symetr throughout. Absent: pronater drift, facial droop, speech deficit - Skin Skin exam: Present: dry, intact, pallor, warm Internal Medicine: Result - Labs CBC & Chem 7: 01/13/17 04:50 01/13/17 04:50 Labs: Short CBC 01/13/17 Range/Units 04:50 WBC 8.0 (4.3-11.1) K/mcL Hgb 13.9 (12.9-16.9) g/dL Hct 42.1 (37.5-50.1) % Plt Count 162 (140-400) K/mcL Neutrophils # 4.9 (1.6-8.9) K/mcL BMP 01/13/17 04:50 Sodium 136 Potassium 4.1 Chloride 99 Carbon Dioxide 30 H BUN 14 Creatinine 1.26 H Glucose 118 H Calcium 9.3 - ABG Interpretation ABG results: ABG ABG pH 7.43 pH Units (7.32-7.45) 01/12/17 18:33 ABG pCO2 39 mmHg (35-45) 01/12/17 18:33 ABG pO2 58 mmHg (85-104) L 01/12/17 18:33 ABG O2 Saturation 91 % (95-98) L 01/12/17 18:33 PT/INR, D-dimer PT 16.3 Seconds (9.4-12.1) H 01/10/17 14:34 - Impressions Impressions Chest CT 01/12/17 16:33 IMPRESSION: There is mild diffuse septal thickening possibly related to very early developing mild edema or chronic interstitial lung disease. There is slightly more focal bibasilar dependent opacities, likely related to atelectasis. D/ / Terri Byran MD / Terri Bryan MD Interpreting Provider: Terri Bryan MD Chest CTA 01/13/17 15:42 IMPRESSION: 1. No evidence of pulmonary embolism. 2. Continued evidence of severe emphysema and fibrosis in the lower lungs. 3. Dependent atelectasis bilaterally. 4. Mild mediastinal lymphadenopathy, unchanged. D/ / Stefano Rhodes MD / Stefano Rhodes MD Interpreting Provider: Stefano Rhodes MD Consult Discharge Plan - Plan Referrals: Jani Slaughter MD [Primary Care Provider] -
[2017-01-13] MEDS: methylPREDNISolone 125 MG/2 ML VIAL IVP SCH (20:22)
[2017-01-14] MEDS: Ipratropium/Albuterol Neb 3 ML IH SCH ×7 (00:05→23:32)
[2017-01-14] MEDS: methylPREDNISolone 125 MG/2 ML VIAL IVP SCH ×3 (01:41→14:48)
[2017-01-14 01:47] LABS: BUN/Creatinine Ratio 11 (6-26); Blood Urea Nitrogen 13 mg/dL (8-26); Calcium 10.1 mg/dL (8.6-10.8); Carbon Dioxide 26 mEq/L (19-29); Chloride 100 mEq/L (98-109); Glucose 150 mg/dL (70-99); Osmolality,Calculated 281 (280-300); Sodium 134 mEq/L (136-145); eGFR For African Americans > 60 (> 60); eGFR For Non-African Americans > 60 (> 60)
[2017-01-14 01:51] LABS: Potassium 5.1 mEq/L (3.5-4.5)
[2017-01-14] MEDS: diazePAM 5 MG TABLET PO SCH ×3 (04:08→18:44)
[2017-01-14] MEDS: *HR* OxyCODONE Immed Rel 15 MG TABLET PO SCH ×3 (05:27→20:53)
[2017-01-14] MEDS: *HR* Heparin 5,000 UNIT/ML VIAL SQ SCH ×3 (05:27→23:50)
--- NOTE | 2017-01-14 07:59 | Pulmonology Consult Note ---
Date of Encounter: 01/14/17 Time of Encounter: 07:59 Past Med Surg Social Fam HX - Past Medical History Medical history: CHF, COPD, hyperlipidemia, hypertension, other (Hepatitis C) Psychiatric history: anxiety - Past Surgical History Surgical History: coronary bypass (CABG), herniorrhaphy, pacemaker/AICD - Social History Smoking Status: Former smoker Smokeless Tobacco Status: No Alcohol use: rarely Drug use: none - Family History Mother History Unknown: Yes Adopted: Yes Medications and Allergies Aspirin Enteric Coated [Aspirin EC] 162 mg PO DAILY 05/16/15 [History] Atorvastatin [Lipitor] 40 mg PO DAILY 05/16/15 [History] Carvedilol [Coreg] 25 mg PO BID 05/16/15 [History] Clopidogrel [Plavix] 75 mg PO DAILY 05/16/15 [History] Fenofibrate [Lofibra] 145 mg PO DAILY 05/16/15 [History] Isosorbide MONOnitrate (24 HR) [Imdur] 120 mg PO DAILY 05/16/15 [History] Losartan [Cozaar] 25 mg PO DAILY 05/16/15 [History] Ranolazine [Ranexa] 1,000 mg PO BID 05/16/15 [History] Budesonide/Formoterol 160/4.5 [Symbicort] 2 puff IH BIDR #1 inhaler 05/21/15 [Rx ] Promethazine/Codeine [Phenergan/Codeine] 5 ml PO Q4HR PRN #100 udc 05/21/15 [Rx] Furosemide [Lasix] 60 mg PO BID 01/11/17 [History] Allergies No Known Allergies Allergy (Verified 01/11/17 09:57) All Systems: A 10-system review of systems was performed and is negative for pertinent findings except as documented above in the HPI. Physical Examination Vital Signs: Vital Signs, Last 4 Hours Temp Pulse Resp BP Pulse Ox 01/14/17 07:22 98.1 F 110 16 98/56 87 01/14/17 04:07 98.2 F 120 15 117/77 89 Results - Laboratory Findings CBC and BMP: 01/13/17 04:50 01/14/17 01:23 ABG ABG pH 7.43 pH Units (7.32-7.45) 01/12/17 18:33 ABG pCO2 39 mmHg (35-45) 01/12/17 18:33 ABG pO2 58 mmHg (85-104) L 01/12/17 18:33 ABG O2 Saturation 91 % (95-98) L 01/12/17 18:33 PT/INR, D-dimer PT 16.3 Seconds (9.4-12.1) H 01/10/17 14:34 Abnormal lab findings: Abnormal lab results RBC 4.13 M/mcL (4.19-5.50) L 01/13/17 04:50 MCV 101.9 fL (83.0-100.0) H 01/13/17 04:50 MCH 33.7 pg (28.0-33.3) H 01/13/17 04:50 PT 16.3 Seconds (9.4-12.1) H 01/10/17 14:34 ABG pO2 58 mmHg (85-104) L 01/12/17 18:33 ABG Total CO2 27.1 mEq/L (20-26) H 01/12/17 18:33 ABG O2 Saturation 91 % (95-98) L 01/12/17 18:33 Sodium 134 mEq/L (136-145) L 01/14/17 01:23 Potassium 5.1 mEq/L (3.5-4.5) H D 01/14/17 01:23 Glucose 150 mg/dL (70-99) H 01/14/17 01:23 Total Bilirubin 3.7 mg/dL (0.2-1.2) H 01/10/17 14:34 Indirect Bilirubin 3.2 mg/dL (0.0-1.2) H 01/10/17 14:34 B-Natriuretic Peptide 173 pg/mL (0-100) H 01/12/17 14:02 Globulin 3.8 g/dL (2.4-3.5) H 01/10/17 14:34 Albumin/Globulin Ratio 1.0 (1.1-2.2) L 01/10/17 14:34 - Clinical Findings Intake & Output: Intake & Output 01/13/17 01/13/17 01/14/17 15:59 23:59 07:59 Intake Total 817 / 817 Output Total 320 / 320 500 / 500 Balance -320 / -320 317 / 317 Weight 87.09 kg Consult Discharge Plan - Plan Referrals: Slaughter,Gunter, MD [Primary Care Provider] -
[2017-01-14] MEDS: Budesonide/Formoterol 160/4.5 MDI IH SCH ×2 (08:01→20:16)
[2017-01-14] MEDS: Isosorbide MONOnitrate (24 HR) 60 MG TAB.ER.24H PO SCH (09:14)
[2017-01-14] MEDS: Fenofibrate 54 MG TABLET PO SCH (09:14)
[2017-01-14] MEDS: Aspirin Enteric Coated 81 MG Tablet PO SCH ×2 (09:15→20:51)
[2017-01-14] MEDS: ZETIA 10 MG PO SCH (09:19)
--- NOTE | 2017-01-14 09:34 | Internal Med Progress Note ---
Date of Encounter: 01/14/17 Time of Encounter: 08:45 - Assessment and plan (1) Congestive heart failure Current Visit: Yes Status: Acute Assessment and plan: Acute on chronic combined systolic and diastolic heart failure. Current ejection fraction is 35%, prior ejection fraction 40%. Indeterminate diastolic function. Patient is on furosemide at home, changed to Bumex during this admission that was held 2/2 NIDHI that has now resolved; will restart low dose furosemide at this time and monitor closely given his mild hypotension. No pedal edema but breath sounds are slightly more decreased than yesterday and the patient's oxygen levels are decreasing with increased need for supplemental oxygen. Patient has continued increased need for oxygenation. At home, he is on 2 L continuously. He was weaned down from 4.5 to 4 L yesterday, but today, he is back up on 5L. He states his shortness of breath remains unchanged, however. He continues with desaturation even with slight movements. Repeat chest CT revealing chronic ILD versus mild edema. CTA was performed which ruled out a PE and again revealed his severe emphysema and fibrosis without acute processes. His mediastinal lymphadenopathy is also unchanged. He is compensating well, ABGs unremarkable. On examination, mildly increased work of breathing but overall, he appears comfortable but he is very anxious on examination which is being abated slightly with his home dosing of valium. BNP trended down. Unclear causation at this time, pulmonology has been brought on board; appreciate their recommendations. Of note, his daughter is a nurse here and asked several questions. She asked if he would benefit from BiPAP however he is compensated clinically and does not clinically need BiPAP at this time. Would try to avoid BiPAP given that he has severe emphysema. Would add CPAP if clinically indicated although at this point, it is currently not indicated. She also asked if I thought a bronchoscopy would benefit him, I do not see any reason for bronchoscopy at this time. There is no evidence that there is any type of infectious process in his lungs. High-dose IV methylprednisolone added yesterday, which could be contributing to his tachycardia, will monitor. His mucolytics were increased yesterday and he feels as if his mucus is loosened up a little bit but his cough remains nonproductive. Appreciate pulmonology recommendations. ITS Impressions Chest X-Ray 01/10/17 14:01 IMPRESSION: Borderline pulmonary vascular congestion and subtle hazy opacity throughout both lungs raises the possibility of early pulmonary edema. D/ / Stefano Rhodes MD / Stefano Rhodes MD Interpreting Provider: Stefano Rhodes MD Liver Ultrasound 01/11/17 10:30 IMPRESSION: 1. Coarsened hepatic echotexture and subtle surface nodularity suggesting early cirrhosis. No suspicious focal lesion. 2. Otherwise normal study. D/ / Josesito Padron MD / Josesito Padron MD Interpreting Provider: Josesito Padron MD :4 Echocardiogram 01/11/17 19:57 Impressions: LVEF 35%. Mildly dilated left ventricle. Global and segmental left ventricular systolic dysfunction. Indeterminate diastolic function. Normal right ventriclular size with mild hypokinesis. Mild mitral regurgitation. No evidence of pulmonary hypertension. A device lead was visualized in the right atrium and right ventricle. Chest CT 01/12/17 16:33 IMPRESSION: There is mild diffuse septal thickening possibly related to very early developing mild edema or chronic interstitial lung disease. There is slightly more focal bibasilar dependent opacities, likely related to atelectasis. D/ / Terri Bryan MD / Terri Bryan MD Interpreting Provider: Terri Bryan MD Chest CTA 01/13/17 15:42 IMPRESSION: 1. No evidence of pulmonary embolism. 2. Continued evidence of severe emphysema and fibrosis in the lower lungs. 3. Dependent atelectasis bilaterally. 4. Mild mediastinal lymphadenopathy, unchanged. D/ / Stefano Rhodes MD / Stefano Rhodes MD Interpreting Provider: Stefano Rhodes MD Qualifiers: Congestive heart failure type: combined Congestive heart failure chronicity : acute on chronic Qualified Code(s): I50.43 - Acute on chronic combined systolic (congestive) and diastolic (congestive) heart failure (2) COPD (chronic obstructive pulmonary disease) Current Visit: Yes Status: Chronic Assessment and plan: It does not appear as if the patient is an acute exacerbation of his COPD however will treat as he continues with shortness of breath above his norm as well as marked desaturations with minimal exertion. No wheezing appreciated on examination. Consistent more with pulmonary edema and fluid overload; Pulmonology now onboard and his diuretics have been restarted. Patient is on 2 L per nasal cannula continuously at home. He stopped smoking 20 years ago. Patient stating he has only been on oxygen for the past 2 years. He does have a moist, nonproductive cough, mucolytics increased yesterday. He also endorses shortness of breath above his norm despite increased DuoNeb treatments. He was not clinically improving at home so he sought a second opinion from another knife cutter from [place] (Dr Linder) who started him on a new inhaler called Stiolo with tiotropium and oloctaterol. He states he was on this new inhaler for 4 days prior to presentation and felt as if it did not work as well as his Symbicort. At home, patient is only on Symbicort and now Stiolo (which is essentially Spiriva (LAAC) with a LABA). Basically, patient was changed from an inhaler with a LABA + INH glucocort to an inhaler with a LABA and an LAAC. If he is to remain on this new inhaler, would recommend adding back in an inhaled glucocorticoid i.e. budesonide. Appreciate pulmonology recommendations as well. Unclear why he is clinically decompensating and has increased need for oxygenation. Appreciate pulmonology recommendations. Qualifiers: COPD type: emphysema Emphysema type: panlobular Qualified Code(s): J43.1 - Panlobular emphysema (3) Acute and chronic respiratory failure Current Visit: Yes Status: Acute Assessment and plan: Unclear causation. Could be natural progression of his severe emphysema and COPD however he has not smoked in 20 years, is not exposed to any cigarette smoke. Unclear causation on his decline over the past 2 years and more specifically over the past couple weeks. Pulmonology is now on board. He has been on 2 L per nasal cannula continuously for the past 2 years. His family states that he had bronchitis, was admitted, was placed on supplemental oxygen 2 years ago, and has never been taken back off. He is currently requiring 5 L continuously (4) Acute encephalopathy Current Visit: Yes Status: Resolved Assessment and plan: Patient remains alert and oriented 3 with no further episodes of confusion or hallucinations. 01/12/17 Patient had an episode overnight in which he woke up sweating and hot, then he started to see "little people like they were in a casino game" where the sharps container is located. Patient fully remembers this episode. He states that he called for help and states that he felt better after drinking a whole can of Sprite. He states that he was unable to go back to bed. Unclear causation, could be delirium. Could be hypoxia with possible CO2 retention-checking ABGs and repeat chest CT. Patient is also noted to be on rather high doses of Valium and oxycodone confirmed with [facility] report and continued at this time as he has been on these dosages for quite some time and he could be going through withdrawal as well. LFTs were normal upon arrival, hepatic encephalopathy less likely. He has been alert and oriented x3 without any further episodes since last night. (5) CAD (coronary artery disease) Current Visit: Yes Status: Chronic Assessment and plan: History of coronary artery disease, status post CABG. Continues to deny chest pain. Continue aspirin, statin, Coreg, Plavix, Imdur, ranolazine. Continue telemetry. Qualifiers: Coronary Disease-Associated Artery/Lesion type: bypass graft [place] vs. transplanted heart: [place] heart Associated angina: without angina Qualified Code(s): I25.810 - Atherosclerosis of coronary artery bypass graft(s) without angina pectoris (6) Hep C w/o coma, chronic Current Visit: Yes Status: Chronic Assessment and plan: History of hepatitis C, patient finished Harvoni treatment. LFTs normal. Patient denies abdominal pain. No jaundice on examination. Liver ultrasound consistent with early cirrhosis. Patient is aware of these findings and will followup outpatient. (7) HTN (hypertension) Current Visit: Yes Status: Chronic Assessment and plan: Hypotensive at times, his diuretics and his ARB have been held. Blood pressure has improved, but it remains slightly low. Will continue to trend and adjust medications as indicated. Qualifiers: Hypertension type: essential hypertension Qualified Code(s): I10 - Essential (primary) hypertension (8) HLD (hyperlipidemia) Current Visit: No Status: Chronic Assessment and plan: Chronic. Lipid panel checked earlier this month, unremarkable. Continue home medications. Lipitor 40 mg by mouth daily. (9) Pacemaker Current Visit: No Status: Chronic (10) Mediastinal lymphadenopathy Current Visit: Yes Status: Chronic Assessment and plan: Stable per imaging, follow-up outpatient (11) DVT prophylaxis Current Visit: Yes Status: Acute Assessment and plan: Subcutaneous heparin - Subjective Interval history: Patient seen and examined. Patient stating he did not sleep well last night and is concerned because his heart rate was elevated all night. He states his shortness of breath is pretty much stable, he denies any new symptoms other than anxiety. He states his anxiety was abated with his home dose of Valium. He states he is eating and drinking well. - Constitutional Vitals: Temp Pulse Resp BP Pulse Ox 97.9 F 115 16 103/68 87 01/14/17 09:03 01/14/17 09:03 01/14/17 09:03 01/14/17 09:03 01/14/17 09:03 General appearance: Present: cooperative, mild distress, A&O X 3, pleasant, answers questions appropriately - Head Head exam: Present: atraumatic, normocephalic - Eye Eye exam: Present: PERRL, conjuntiva pink, sclera anicteric Pupils: Present: PERRL - Neck Neck exam general surgery: Present: supple, trachea midline. Absent: lymphadenopathy - Respiratory Respiratory exam: Present: accessory muscle use, decreased breath sounds, respiratory distress (mild), rhonchi (few, scattered coarse breath sounds). Absent: rales, wheezes - Cardiovascular Cardiovascular exam: Present: RRR, +S1, +S2, tachycardia. Absent: diastolic murmur, gallop, rubs, systolic murmur - GI/Abdominal GI/Abdominal exam: Present: normal bowel sounds, soft, no peritoneal signs. Absent: distended, tenderness - Extremities Exam Extremities exam: Present: warm, radial pulses palpable and symmetrical. Absent : calf tenderness, cyanotic, pedal edema - Neurological Exam Neurological exam: Present: alert, CN II-XII intact, normal gait, oriented X3, no focal deficits, strengths equal and symetr throughout. Absent: pronater drift, facial droop, speech deficit - Psychiatric Psychiatric exam: Present: anxious - Expanded Psychiatric Exam Focused psych exam: Present: perseverating (on his elevated HR) - Skin Skin exam: Present: dry, intact, normal color, warm Internal Medicine: Result - Labs CBC & Chem 7: 01/13/17 04:50 01/14/17 01:23 Labs: BMP 01/14/17 01:23 Sodium 134 L Potassium 5.1 H D Chloride 100 Carbon Dioxide 26 BUN 13 Creatinine 1.15 Glucose 150 H Calcium 10.1 Cardiac Enzymes 01/14/17 01/14/17 Range/Units 01:23 05:44 Troponin I 0.01 0.02 (0-0.03) ng/mL - ABG Interpretation ABG results: ABG ABG pH 7.43 pH Units (7.32-7.45) 01/12/17 18:33 ABG pCO2 39 mmHg (35-45) 01/12/17 18:33 ABG pO2 58 mmHg (85-104) L 01/12/17 18:33 ABG O2 Saturation 91 % (95-98) L 01/12/17 18:33 PT/INR, D-dimer PT 16.3 Seconds (9.4-12.1) H 01/10/17 14:34 - Impressions Impressions Chest CTA 01/13/17 15:42 IMPRESSION: 1. No evidence of pulmonary embolism. 2. Continued evidence of severe emphysema and fibrosis in the lower lungs. 3. Dependent atelectasis bilaterally. 4. Mild mediastinal lymphadenopathy, unchanged. D/ / Stefano Rohdes MD / Stefano Rhodes MD Interpreting Provider: Stefano Rhodes MD Consult Discharge Plan - Plan Referrals: Jani Slaughter MD [Primary Care Provider] -
[2017-01-14] MEDS: LEDIPASVIR PO SCH (09:42)
[2017-01-14] MEDS: Ranolazine 500 MG TAB.ER.12H PO SCH ×2 (09:42→20:51)
[2017-01-14] MEDS: SOFOSBUVIR PO SCH (09:42)
[2017-01-14] MEDS: Furosemide 20 MG TABLET PO SCH ×2 (11:34→18:44)
--- NOTE | 2017-01-14 12:30 | Pulmonology Consult Note ---
Date of Encounter: 01/14/17 Time of Encounter: 12:26 Assessment and Plan (1) Acute and chronic respiratory failure Current Visit: Yes Status: Acute In conclusion this is a pleasant 66-year-old gentleman who presents with acute on chronic hypoxic respiratory failure which is multifactorial in nature including what appears to be underlying combined pulmonary fibrosis and emphysema (CPFE)along with severe heart failure with reduced ejection fraction d he also has evidence of sleep-disordered breathing Radiographically he has features that are consistent with CPFE and this in itself could present with the progressive nature which would increase oxygen requirement over time and may explain the majority of his symptomatology. There is no clear acute treatment option for this problem except for management of underlying hypoxemia and treatment of underlying COPD. It is possible although felt less likely that this represents an acute flare of underlying pulmonary fibrosis. From this standpoint I would continue his metered dose inhaler (Symbicort) consider adding tiotropium (spiriva) 18.5 g 1 puff daily and he can be discharged with this. Continue to wean supplemental oxygen to keep saturation greater than 80% to around 92%. Return to bed ambulation and incentive spirometry will be helpful. He may be a candidate for advanced therapeutics at the time of discharge although as an inpatient we would not recommend starting these until additional workup has been completed. He is currently receiving intravenous methylprednisolone think steroids are reasonable however I am not sure that he needs IV formulation transitioned to enteral prednisone 40 mg and heat this could be tapered over 2 weeks of discharge Given underlying heart failure and symptoms with sleep I would recommend outpatient polysomnogram to evaluate for sleep-disordered breathing. As an inpatient I think that it is reasonable to try has a airway pressure on an as- needed basis including for comfort patient could also sleep with this which may increase O2 saturation overnight. Likely the most immediate benefit would be continued diuresis for pulmonary edema related to congestive heart failure. At least as medical record there is evidence of ARB I would recommend holding this at least acutely if you have artery done so while actively diuresing. I feel that this is any give us the most immediate improvement in his hypoxemia and overall dyspnea. With active diuresis I recommend at least daily evaluation of renal function and electrolytes including potassium and magnesium to further replacement of these to the primary medicine service Recommend chemical DVT prophylaxis unless Contraindication arises I discussed my findings and recommendations with the patient and his daughter at bedside I examined them that he may have reached a new oxygen requirement and that the severity of his underlying heart disease and lung disease would eventually progress get worse and this may be a reflection of this. All questions answered at bedside Qualifiers: Respiratory failure complication: hypoxia Qualified Code(s): J96.21 - Acute and chronic respiratory failure with hypoxia (2) Pulmonary fibrosis, unspecified Current Visit: Yes Status: Acute (3) Pulmonary hypertension Current Visit: Yes Status: Acute (4) COPD (chronic obstructive pulmonary disease) Current Visit: Yes Status: Chronic Qualifiers: COPD type: emphysema Emphysema type: panlobular Qualified Code(s): J43.1 - Panlobular emphysema (5) Acute on chronic systolic (congestive) heart failure Current Visit: Yes Status: Acute (6) Mediastinal lymphadenopathy Current Visit: Yes Status: Chronic (7) Pulmonary hypertension Current Visit: Yes Status: Acute (8) Sleep-disordered breathing Current Visit: Yes Status: Acute (9) DVT prophylaxis Current Visit: Yes Status: Acute History of Present Illness Consult date: 01/14/17 Requesting physician: Blessing Covarrubias Reason for consult: hypoxemia Chief complaint: Shortness of breath History of present illness: This is a pleasant 66-year-old gentleman with past medical history of chronic hypoxic respiratory failure wearing 2 L oxygen at all times COPD, heart failure with reduced ejection fraction secondary to ischemic cardiomyopathy who presents with a three-day history of worsening cough and shortness of breath. Symptoms have been worsening over the last 6 months but 3 days prior to admission he had noticed that he became increasingly short of breath and had had a worsening cough. Since he has been in the hospital he is required increasing amounts of oxygen and has been noted to desaturate quickly with minimal exertion. He is now requiring between 5 and 6 L nasal cannula oxygen to keep saturations greater than 89%. Additionally he has noted increased lower extremity edema and abdominal fullness/distention A noncontrasted CT scan and a CT angiogram of the chest of both been obtained which were negative for acute filling defect he does have evidence of severe emphysema in the apical regions of the lung bilaterally and also some developing fibrotic changes in the bases of the lung additionally there is some septal thickening which is consistent with cardiogenic pulmonary edema. There is no evidence of an acute filling defect. There is also noted stable hilar lymphadenopathy that has been followed radiographically as an outpatient He smoked for many years but quit greater than 20 years ago. 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 He has not had formal evaluation for sleep-disordered breathing however he does wake up choking at night frequently and has been noted to snore loudly. He is doing today by his adult daughter Past Med Surg Social Fam HX - Past Medical History Medical history: CHF, COPD, hyperlipidemia, hypertension, other (Hepatitis C) Psychiatric history: anxiety - Past Surgical History Surgical History: coronary bypass (CABG), herniorrhaphy, pacemaker/AICD - Social History Smoking Status: Former smoker Smokeless Tobacco Status: No Alcohol use: rarely Drug use: none - Family History Mother History Unknown: Yes Adopted: Yes Medications and Allergies Aspirin Enteric Coated [Aspirin EC] 162 mg PO DAILY 05/16/15 [History] Atorvastatin [Lipitor] 40 mg PO DAILY 05/16/15 [History] Carvedilol [Coreg] 25 mg PO BID 05/16/15 [History] Clopidogrel [Plavix] 75 mg PO DAILY 05/16/15 [History] Fenofibrate [Lofibra] 145 mg PO DAILY 05/16/15 [History] Isosorbide MONOnitrate (24 HR) [Imdur] 120 mg PO DAILY 05/16/15 [History] Losartan [Cozaar] 25 mg PO DAILY 05/16/15 [History] Ranolazine [Ranexa] 1,000 mg PO BID 05/16/15 [History] Budesonide/Formoterol 160/4.5 [Symbicort] 2 puff IH BIDR #1 inhaler 05/21/15 [Rx ] Promethazine/Codeine [Phenergan/Codeine] 5 ml PO Q4HR PRN #100 udc 05/21/15 [Rx] Furosemide [Lasix] 60 mg PO BID 01/11/17 [History] Allergies No Known Allergies Allergy (Verified 01/11/17 09:57) All Systems: A 10-system review of systems was performed and is negative for pertinent findings except as documented above in the HPI. Physical Examination Vital Signs: Vital Signs, Last 4 Hours Temp Pulse Resp BP Pulse Ox 01/14/17 12:09 97.6 F 104 17 110/67 88 01/14/17 11:09 16 87 01/14/17 10:26 98.3 F 107 16 105/72 89 01/14/17 09:03 97.9 F 115 16 103/68 87 General appearance: no acute distress Eyes: nonicteric ENT: oropharynx moist Auscultation: bilateral: rales Cardiovascular: regular rate and rhythm Gastrointestinal: normoactive bowel sounds, non-tender Extremities: no cyanosis, no edema, edema Musculoskeletal: no deformities normal mental status, non-focal exam mood appropriate Results - Laboratory Findings CBC and BMP: 01/13/17 04:50 01/14/17 01:23 ABG ABG pH 7.43 pH Units (7.32-7.45) 01/12/17 18:33 ABG pCO2 39 mmHg (35-45) 01/12/17 18:33 ABG pO2 58 mmHg (85-104) L 01/12/17 18:33 ABG O2 Saturation 91 % (95-98) L 01/12/17 18:33 PT/INR, D-dimer PT 16.3 Seconds (9.4-12.1) H 01/10/17 14:34 Abnormal lab findings: Abnormal lab results RBC 4.13 M/mcL (4.19-5.50) L 01/13/17 04:50 MCV 101.9 fL (83.0-100.0) H 01/13/17 04:50 MCH 33.7 pg (28.0-33.3) H 01/13/17 04:50 PT 16.3 Seconds (9.4-12.1) H 01/10/17 14:34 ABG pO2 58 mmHg (85-104) L 01/12/17 18:33 ABG Total CO2 27.1 mEq/L (20-26) H 01/12/17 18:33 ABG O2 Saturation 91 % (95-98) L 01/12/17 18:33 Sodium 134 mEq/L (136-145) L 01/14/17 01:23 Potassium 5.1 mEq/L (3.5-4.5) H D 01/14/17 01:23 Glucose 150 mg/dL (70-99) H 01/14/17 01:23 Total Bilirubin 3.7 mg/dL (0.2-1.2) H 01/10/17 14:34 Indirect Bilirubin 3.2 mg/dL (0.0-1.2) H 01/10/17 14:34 B-Natriuretic Peptide 173 pg/mL (0-100) H 01/12/17 14:02 Globulin 3.8 g/dL (2.4-3.5) H 01/10/17 14:34 Albumin/Globulin Ratio 1.0 (1.1-2.2) L 01/10/17 14:34 - Diagnostic Findings Chest x-ray: report reviewed, image reviewed CT scan - chest: report reviewed, image reviewed - Clinical Findings Intake & Output: Intake & Output 01/13/17 01/14/17 01/14/17 23:59 07:59 15:59 Intake Total 817 / 817 240 / 240 Output Total 500 / 500 Balance 317 / 317 240 / 240 Weight 87.09 kg Consult Discharge Plan - Plan Referrals: Jani Slaughter MD [Primary Care Provider] -
--- NOTE | 2017-01-14 13:47 | Cardiology Consult Note ---
<Martín Rangel - Last Filed: 01/14/17 14:36> Date of Encounter: 01/14/17 Time of Encounter: 13:40 Assessment and Plan (1) Systolic heart failure Current Visit: Yes Status: Acute HFrEF acute on chronic systolic heart failure with EF of 35 % HE has a BV ICD in place Patient states that his dry weight is 183 pounds Currently he is 192. He is net negative 2500 cc's since admission. However on exam he looks near euvolemic so this may actually be close to his dry weight. Agree with transitioning from Bumex back to PO lasix for continued diuresis. Continue beta jazmín and ARB. Will hold off on starting spironolactone at this time as he has had a rise in potassium and is currently 5.1. 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 should have a Na and fluid restricted diet. continue to monitor I's and Os; continue to monitor electrolytes and replace as needed. Qualifiers: Heart failure chronicity: acute on chronic Qualified Code(s): I50.23 - Acute on chronic systolic (congestive) heart failure (2) Hypoxemic respiratory failure, chronic Current Visit: Yes Status: Acute Etiology is likely multifactorial given his structural lung disease, occupational exposures and acute on chronic heart failure. Most recent PFT revealed mild obstructive pattern on flow volume loop. He had severely reduced diffusion capacitiy. Following Bronchodilator, there is 24 % increase in small airways/mid-flows. Patient did complain of orthodeoxia/platypnia. TTE revealed normal size of RV with mild hypokinesis. Additionally no evidence of Pulmonary hypertension. I doubt this is secodary to cardiac cause. HE dose have early cirrhosis but doubt hepatopulmonary syndrome. We will measure O2 sats at upright and supine positions to confirm as to whether or not he has this. If this is present may need further work up. Recommendation: Agree with continued diuresisis. Agree with pulmonology consultation. (3) CAD (coronary artery disease) Current Visit: Yes Status: Acute continue ASA, plavix and high intensity statin. Also on fenofibrate and Zetia. Qualifiers: Qualified Code(s): I25.10 - Atherosclerotic heart disease of [place] coronary artery without angina pectoris (4) Intraventricular conduction delay Current Visit: Yes Status: Chronic (5) COPD (chronic obstructive pulmonary disease) Current Visit: Yes Status: Acute managemetn per primary/ pulmonology. Qualifiers: Qualified Code(s): J44.9 - Chronic obstructive pulmonary disease, unspecified (6) Emphysema lung Current Visit: Yes Status: Chronic Qualifiers: Qualified Code(s): J43.9 - Emphysema, unspecified (7) Presence of cardiac defibrillator Current Visit: Yes Status: Chronic (8) Sinus tachycardia Current Visit: Yes Status: Acute likely secondary to his lung pathology and hypoxemia. May consider changing albuterol to Xopenex. continue telemetry. (9) Cirrhosis Current Visit: Yes Status: Chronic appears to have early cirrhosis on Liver US. Has a history of Hepatitis C. management per primary team. Qualifiers: Qualified Code(s): K74.60 - Unspecified cirrhosis of liver Discussion w patient/family: The assessment and plan as outlined above was discussed with the patient and/or family members who expressed understanding and agreement. All questions were answered. Thank you for involving us in the care of your patient. Please call with any questions. History of Present Illness Consult date: 01/14/17 Requesting physician: Blessing Covarrubias Consult reason: heart failure/ achycardia Chief complaint: dyspnea History of present illness: Mr. West is a 66 year old male with pmh significant for severe CAD. He is s/p CABG on 2 separate occasions. The most recent CABG was in 2002. He has also had stents placed after his most recent CABG. additionally he has a history of COPD and emphysema and is O2 dependant (2L). Today he states that he has become progressively short of breath over the past 6 weeks. He states that he has gained nearly 14 pounds in this time frame. He denies orthopnea and states that his O2 saturation actually was improving with lying flat at home. He admits to lower extremity edema. He admits to some chest discmfort 1 week prior to admission that occurred after he ate a large meal. He describes this as epigastic location and describes it a dyspepsia. This resolved after he took an antacid. He denies any fever, chills, or night sweats. HE states that he occasionally will have black spots in his sputum. He denies any shocks from his defibrillator. 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 He has never taken amioderone. He has no further complaints or concerns at this time. Past Med Surg Social Fam HX - Past Medical History Medical history: CHF, COPD, hyperlipidemia, hypertension, other (Hepatitis C) Psychiatric history: anxiety - Past Surgical History Surgical History: coronary bypass (CABG), herniorrhaphy, pacemaker/AICD - Social History Smoking Status: Former smoker Smokeless Tobacco Status: No Alcohol use: rarely Drug use: none - Family History Mother History Unknown: Yes Adopted: Yes Medications and Allergies Aspirin Enteric Coated [Aspirin EC] 162 mg PO DAILY 05/16/15 [History] Atorvastatin [Lipitor] 40 mg PO DAILY 05/16/15 [History] Carvedilol [Coreg] 25 mg PO BID 05/16/15 [History] Clopidogrel [Plavix] 75 mg PO DAILY 05/16/15 [History] Fenofibrate [Lofibra] 145 mg PO DAILY 05/16/15 [History] Isosorbide MONOnitrate (24 HR) [Imdur] 120 mg PO DAILY 05/16/15 [History] Losartan [Cozaar] 25 mg PO DAILY 05/16/15 [History] Ranolazine [Ranexa] 1,000 mg PO BID 05/16/15 [History] Budesonide/Formoterol 160/4.5 [Symbicort] 2 puff IH BIDR #1 inhaler 05/21/15 [Rx ] Promethazine/Codeine [Phenergan/Codeine] 5 ml PO Q4HR PRN #100 udc 05/21/15 [Rx] Furosemide [Lasix] 60 mg PO BID 01/11/17 [History] Allergies No Known Allergies Allergy (Verified 01/11/17 09:57) All Systems Review: A 10-system review of systems was performed and is negative for pertinent findings except as documented above in the HPI. - Constitutional Constitutional: weight gain, no anorexia, no chills, no headache(s), no night sweats, no weakness - EENT Eyes: no blurred vision, no loss of vision, no pain Nose, mouth and throat: no bleeding gums, no dysphagia, no epistaxis, no mouth pain, no odynophagia, no sinus pain, no sore throat, no throat swelling - Cardiovascular Cardiovascular: as per HPI - Respiratory Respiratory: cough, dyspnea, no hemoptysis, no wheezing - Gastrointestinal Gastrointestinal: no abdominal pain, no coffee ground emesis, no constipation, no hematemesis, no hematochezia - Genitourinary Genitourinary: no dysuria, no hematuria, no nocturia - Musculoskeletal Musculoskeletal: no abnormal gait, no arthralgias, no muscle weakness, no myalgias - Integumentary Integumentary: no erythema, no rash, no unusual bruising - Neurological Neurological: no dizziness, no focal weakness, no loss of vision, no syncope - Hematological/Lymphatic Hematologic/Lymphatic: no easy bleeding, no easy bruising Physical Examination Vital Signs, Last 4 Hours Temp Pulse Resp BP Pulse Ox 01/14/17 12:09 97.6 F 104 17 110/67 88 01/14/17 11:09 16 87 01/14/17 10:26 98.3 F 107 16 105/72 89 General: Conversant, No Apparent Distress HEENT: Atraumatic, Normocephaly, Mucus Membranes Moist Neck: No JVD, Normal carotid pulses Cardiac: Reg Rate and Rhythm, Normal S1 and S2, No Murmur Lungs: Other (mild crackes at the bases of the lungs. ) Neuro: Alert and responsive, No focal deficits noted Abdomen: Soft, Non-Tender Skin: No rashes noted on visualized skin Musculoskeletal: No Chest Wall Tenderness Extremities: No Clubbing, No Cyanosis, Other (very mild pedal edema. ) Results 01/13/17 04:50 01/14/17 01:23 Lab Results 01/14/17 01/14/17 01/14/17 01:23 01:23 05:44 Sodium 134 L Potassium 5.1 H D Chloride 100 Carbon Dioxide 26 BUN 13 Creatinine 1.15 Glucose 150 H Calcium 10.1 Troponin I 0.01 0.02 01/14/17 13:01 Sodium Potassium Chloride Carbon Dioxide BUN Creatinine Glucose Calcium Troponin I 0.02 Consult Discharge Plan - Plan Referrals: Jani Slaughter MD [Primary Care Provider] - <Tamiko Quinonez - Last Filed: 01/14/17 14:59> Date of Encounter: 01/14/17 Assessment and Plan Discussion w patient/family: The assessment and plan as outlined above was discussed with the patient and/or family members who expressed understanding and agreement. All questions were answered. Thank you for involving us in the care of your patient. Please call with any questions. History of Present Illness History of present illness: Mr. West is a 66 year old male All Systems Review: A 10-system review of systems was performed and is negative for pertinent findings except as documented above in the HPI. Physical Examination Vital Signs, Last 4 Hours Temp Pulse Resp BP Pulse Ox 01/14/17 12:09 97.6 F 104 17 110/67 88 01/14/17 11:09 16 87 Results 01/13/17 04:50 01/14/17 01:23 Lab Results 01/14/17 01/14/17 01/14/17 01:23 01:23 05:44 Sodium 134 L Potassium 5.1 H D Chloride 100 Carbon Dioxide 26 BUN 13 Creatinine 1.15 Glucose 150 H Calcium 10.1 Troponin I 0.01 0.02 01/14/17 13:01 Sodium Potassium Chloride Carbon Dioxide BUN Creatinine Glucose Calcium Troponin I 0.02 - Attending Attestation I examined this patient and my medical decision-making was reviewed with the Resident Physician. I agree with the documented findings, disposition and treatment plan. Mr. West presents with dyspnea that is multifactorial and in part related to acute on chronic systolic heart failure as well as emphysema. He has been diuresed 2500cc and appears now euvolemic. Labs also demonstrate that he is somewhat volume contracted. Intravenous diuretics have been stopped and PO has been resumed. Overall, he is feeling better. Recommend continuing PO lasix, ARB and BB for acute on chronic systolic heart failure. He is also on antiplatelet therapy and lipid lowering therapy for CAD. Will defer to pulmonary for other causes of SOB. Suspect sinus tachycardia is due to beta agonist and steroids. CTA is negative for PE. Will sign off. Recommend outpatient follow up. Please call with questions.
--- NOTE | 2017-01-14 15:48 | Event Note ---
<Martín Rangel - Last Filed: 01/14/17 15:49> Date of Encounter: 01/14/17 Time of Encounter: 15:45 Patient was evaluated for orthodeoxia. O2 saturations while supine were 91% for 2 minutes. O2 saturations were 92% while upright for 2 minutes. Then 92% for 2 minutes after returning to supine position. Patient dose not have platypnea orthodeoxia syndrome at this time. decreasing O2 after sitting up is likely from exertion. Unlikely a Right to left intracardiac shunt is the cause of his hypoxemia. Do not recommend any repeat echocardiograms at this time. <Tamiko Quinonez - Last Filed: 01/15/17 13:24> Date of Encounter: 01/15/[address] Rangel's assessment. -Tamiko Quinonez DO
[2017-01-15] MEDS: methylPREDNISolone 125 MG/2 ML VIAL IVP SCH ×4 (00:13→23:24)
[2017-01-15] MEDS: diazePAM 5 MG TABLET PO SCH ×3 (00:14→11:11)
[2017-01-15] MEDS: Ipratropium/Albuterol Neb 3 ML IH SCH ×5 (04:46→21:33)
[2017-01-15] MEDS: *HR* OxyCODONE Immed Rel 15 MG TABLET PO SCH ×4 (04:58→17:31)
[2017-01-15] MEDS: *HR* Heparin 5,000 UNIT/ML VIAL SQ SCH ×3 (04:59→21:17)
[2017-01-15 05:59] LABS: Hematocrit 42.4 % (37.5-50.1); Hemoglobin 14.1 g/dL (12.9-16.9); Lymphocytes % 4.3 %; Mean Corpuscular HGB Conc 33.3 g/dL (31.6-35.5); Mean Corpuscular Hemoglobin 33.7 pg (28.0-33.3); Mean Corpuscular Volume 101.2 fL (83.0-100.0); Mean Platelet Volume 11.4 fL (9.4-12.4); Monocytes % 2.1 %; Platelet Count 162 K/mcL (140-400); Red Blood Count 4.19 M/mcL (4.19-5.50); Red Cell Distribution Width 13.2 % (11.5-14.5); Segmented Neutrophils % 92.5 %
[2017-01-15 06:00] LABS: Basophils % 0.1 %; Lymphocytes # 0.7 K/mcL (0.6-4.6); Monocytes # 0.3 K/mcL (0.0-1.3)
[2017-01-15 06:02] LABS: Neutrophils # 14.4 K/mcL (1.6-8.9)
[2017-01-15 06:15] LABS: BUN/Creatinine Ratio 16 (6-26); Blood Urea Nitrogen 17 mg/dL (8-26); Calcium 9.5 mg/dL (8.6-10.8); Carbon Dioxide 25 mEq/L (19-29); Chloride 101 mEq/L (98-109); Glucose 181 mg/dL (70-99); Osmolality,Calculated 286 (280-300); Potassium 4.8 mEq/L (3.5-4.5); Sodium 135 mEq/L (136-145); eGFR For African Americans > 60 (> 60); eGFR For Non-African Americans > 60 (> 60)
--- NOTE | 2017-01-15 07:23 | Pulmonology Progress Note ---
Date of Encounter: 01/15/17 Time of Encounter: 07:23 Assessment and Plan (1) Acute and chronic respiratory failure Current Visit: Yes Status: Acute Impression: 1. Acute on Chronic Hypoxic Respiratory Failure 2. COPD 3. Pulmonary Fibrosis 4. HFrEF 5. Suspected Sleep-Disordered Breathing Recs: -Wean supplemental oxygen to keep saturation greater than 88 to approximately 92 % would encourage incentive spirometry out of bed to chair and ambulation when tolerated under supervision and monitoring as clinically safe to do so\ -Continued metered dose inhalers and supplemental bronchodilators as needed agree with steroids which can be delivered by mouth and tapered over 2 weeks -Likely combination of emphysema and pulmonary fibrosis -Cardiology following the patient favor more aggressive diuresis and monitoring her renal function/electrolytes -Recommend bilevel positive airway pressure support for comfort during the day and would empirically start this at night he will need a formal polysomnogram as an outpatient Qualifiers: Respiratory failure complication: hypoxia Qualified Code(s): J96.21 - Acute and chronic respiratory failure with hypoxia (2) Pulmonary fibrosis, unspecified Current Visit: Yes Status: Acute (3) Pulmonary hypertension Current Visit: Yes Status: Acute (4) COPD (chronic obstructive pulmonary disease) Current Visit: Yes Status: Chronic Qualifiers: COPD type: emphysema Emphysema type: panlobular Qualified Code(s): J43.1 - Panlobular emphysema (5) Acute on chronic systolic (congestive) heart failure Current Visit: Yes Status: Acute (6) Mediastinal lymphadenopathy Current Visit: Yes Status: Chronic (7) Pulmonary hypertension Current Visit: Yes Status: Acute (8) Sleep-disordered breathing Current Visit: Yes Status: Acute (9) DVT prophylaxis Current Visit: Yes Status: Acute Subjective Principal diagnosis: Respiratory Failure Interval history: He was transferred overnight to the stepdown unit for reasons that are unclear to me oxygen saturation has stayed stable on 4-5 L nasal cannula it may have possibly been for a rapid heart rate although nursing staff is unable to tell me exact reason I do not see any documented note in the chart describing this move. He feels about the same he did have one episode of coughing up some thick mucus after breathing treatment Objective PUL Vital signs: Last Vital Signs Temp 97.7 F 01/15/17 04:26 Pulse 94 01/15/17 04:26 Resp 18 01/15/17 04:46 BP 91/57 01/15/17 04:26 Pulse Ox 96 01/15/17 04:46 General appearance: no acute distress Effort: normal Auscultation: bilateral: rhonchi Cardiovascular: irregular rhythm Extremities: no clubbing, pink and warm normal mental status, non-focal exam mood appropriate Results - Laboratory Findings CBC and BMP: 01/15/17 05:19 01/15/17 05:19 ABG ABG pH 7.43 pH Units (7.32-7.45) 01/12/17 18:33 ABG pCO2 39 mmHg (35-45) 01/12/17 18:33 ABG pO2 58 mmHg (85-104) L 01/12/17 18:33 ABG O2 Saturation 91 % (95-98) L 01/12/17 18:33 PT/INR, D-dimer PT 16.3 Seconds (9.4-12.1) H 01/10/17 14:34 Abnormal lab findings: Abnormal lab results WBC 15.6 K/mcL (4.3-11.1) H D 01/15/17 05:19 MCV 101.2 fL (83.0-100.0) H 01/15/17 05:19 MCH 33.7 pg (28.0-33.3) H 01/15/17 05:19 Neutrophils # 14.4 K/mcL (1.6-8.9) H 01/15/17 05:19 PT 16.3 Seconds (9.4-12.1) H 01/10/17 14:34 ABG pO2 58 mmHg (85-104) L 01/12/17 18:33 ABG Total CO2 27.1 mEq/L (20-26) H 01/12/17 18:33 ABG O2 Saturation 91 % (95-98) L 01/12/17 18:33 Sodium 135 mEq/L (136-145) L 01/15/17 05:19 Potassium 4.8 mEq/L (3.5-4.5) H 01/15/17 05:19 Glucose 181 mg/dL (70-99) H 01/15/17 05:19 Total Bilirubin 3.7 mg/dL (0.2-1.2) H 01/10/17 14:34 Indirect Bilirubin 3.2 mg/dL (0.0-1.2) H 01/10/17 14:34 B-Natriuretic Peptide 173 pg/mL (0-100) H 01/12/17 14:02 Globulin 3.8 g/dL (2.4-3.5) H 01/10/17 14:34 Albumin/Globulin Ratio 1.0 (1.1-2.2) L 01/10/17 14:34 - Clinical Findings Intake & Output: Intake & Output 01/14/17 01/14/17 01/15/17 15:59 23:59 07:59 Intake Total 240 / 240 680 / 680 50 / 50 Output Total 250 / 250 Balance 240 / 240 680 / 680 -200 / -200 Weight 88 kg 88 kg Consult Discharge Plan - Plan Referrals: Jani Slaughter MD [Primary Care Provider] -
[2017-01-15] MEDS: Furosemide 20 MG TABLET PO SCH ×2 (07:41→17:30)
[2017-01-15] MEDS: Aspirin Enteric Coated 81 MG Tablet PO SCH (07:42)
[2017-01-15] MEDS: Ranolazine 500 MG TAB.ER.12H PO SCH ×2 (07:43→21:17)
[2017-01-15] MEDS: Isosorbide MONOnitrate (24 HR) 60 MG TAB.ER.24H PO SCH (07:43)
[2017-01-15] MEDS: Fenofibrate 54 MG TABLET PO SCH (07:43)
[2017-01-15] MEDS: SOFOSBUVIR PO SCH (07:54)
[2017-01-15] MEDS: LEDIPASVIR PO SCH (07:54)
[2017-01-15] MEDS: Budesonide/Formoterol 160/4.5 MDI IH SCH ×2 (08:07→21:36)
[2017-01-15] MEDS: ZETIA 10 MG PO SCH (08:26)
--- NOTE | 2017-01-15 12:35 | Internal Med Progress Note ---
Date of Encounter: 01/15/17 Time of Encounter: 11:50 - Assessment and plan (1) Acute and chronic respiratory failure with hypoxia Current Visit: Yes Status: Acute Assessment and plan: improving slowly Currently on 4 lit o2 try to wean him to his baseline O2 slowly Cont steroids and Duoneb (2) COPD (chronic obstructive pulmonary disease) Current Visit: Yes Status: Chronic Assessment and plan: He does have severe COPD exacerbation - with end stage lung disease it does look like he does not have much active lung tissue left Cont IV steroids at high dose for another day - will start tapering them in AM if he feels better Cont Duoneb Will use BiPAP PRN during day time and continuous at bed time He may get benefit with over night BiPAP study before he goes home Qualifiers: COPD type: emphysema Emphysema type: panlobular Qualified Code(s): J43.1 - Panlobular emphysema (3) Acute on chronic systolic (congestive) heart failure Current Visit: Yes Status: Acute Assessment and plan: Seems to be improved and close to his baseline fluid status agustin His SOB mostly due to COPD exacerbation cont PO diuresis for now resumed all other home meds (4) Pulmonary fibrosis, unspecified Current Visit: Yes Status: Acute (5) CAD (coronary artery disease) Current Visit: Yes Status: Acute Assessment and plan: s/p CABG and stents cont ASA, Plavix, Statin and B jazmín Qualifiers: Qualified Code(s): I25.10 - Atherosclerotic heart disease of [place] coronary artery without angina pectoris (6) DVT prophylaxis Current Visit: Yes Status: Acute Assessment and plan: on SQ heparin - Subjective Interval history: Mr. West is a 66 year old male with pmh significant for severe CAD. He is s/p CABG on 2 separate occasions. The most recent CABG was in 2002. He has also had stents placed after his most recent CABG. additionally he has a history of COPD and emphysema and is O2 dependant (2L) was preseted to out ER on 01/10/17 with worsening SOB and hypoxia. Pt was admitted here for acute on chronic hypoxic respiratory failure with COPD exacerbation and CHF exacerbation. Today pt is alert, awake, O x3. Still c/p moderate SOB and MEYER. Denied any CP. Cough +. No fever / no chills. - Constitutional Vitals: Temp Pulse Resp BP Pulse Ox 98.2 F 94 18 104/69 97 01/15/17 11:09 01/15/17 11:09 01/15/17 11:09 01/15/17 11:09 01/15/17 11:09 General appearance: Present: cooperative, mild distress, A&O X 3, pleasant, answers questions appropriately - Head Head exam: Present: atraumatic, normal inspection - Neck Neck exam general surgery: Present: supple - Respiratory Respiratory exam: Present: decreased breath sounds, respiratory distress, wheezes (moderate to severe wheezing). Absent: rales - Cardiovascular Cardiovascular exam: Present: RRR, +S1, +S2. Absent: systolic murmur - Extremities Exam Extremities exam: Present: pedal edema. Absent: calf tenderness, tenderness - Neurological Exam Neurological exam: Present: alert, oriented X3 - Psychiatric Psychiatric exam: Present: anxious Internal Medicine: Result - Labs CBC & Chem 7: 01/15/17 05:19 01/15/17 05:19 Labs: Short CBC 01/15/17 Range/Units 05:19 WBC 15.6 H D (4.3-11.1) K/mcL Hgb 14.1 (12.9-16.9) g/dL Hct 42.4 (37.5-50.1) % Plt Count 162 (140-400) K/mcL Neutrophils # 14.4 H (1.6-8.9) K/mcL BMP 01/15/17 05:19 Sodium 135 L Potassium 4.8 H Chloride 101 Carbon Dioxide 25 BUN 17 Creatinine 1.04 Glucose 181 H Calcium 9.5 Cardiac Enzymes 01/14/17 Range/Units 13:01 Troponin I 0.02 (0-0.03) ng/mL - ABG Interpretation ABG results: ABG ABG pH 7.43 pH Units (7.32-7.45) 01/12/17 18:33 ABG pCO2 39 mmHg (35-45) 01/12/17 18:33 ABG pO2 58 mmHg (85-104) L 01/12/17 18:33 ABG O2 Saturation 91 % (95-98) L 01/12/17 18:33 PT/INR, D-dimer PT 16.3 Seconds (9.4-12.1) H 01/10/17 14:34 Consult Discharge Plan - Plan Referrals: Jani Slaughter MD [Primary Care Provider] - Mary Lala CNP [Advanced Practice Nurse] - 01/21/17 1:45 pm
--- NOTE | 2017-01-15 17:30 | Electrocardiograph Report ---
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
[2017-01-15 19:13] LABS: Acinetobacter baumannii by PCR Not Detected (Not Detect); Candida albicans by PCR Not Detected (Not Detect); Candida glabrata by PCR Not Detected (Not Detect); Candida krusei by PCR Not Detected (Not Detect); Candida parapsilosis by PCR Not Detected (Not Detect); Candida tropicalis by PCR Not Detected (Not Detect); Enterococcus by PCR Not Detected (Not Detect); Escherichia coli by PCR Not Detected (Not Detect); Klebsiella oxytoca by PCR Not Detected (Not Detect); Klebsiella pneumoniae by PCR Not Detected (Not Detect); Pseudomonas aeruginosa by PCR Not Detected (Not Detect); Serratia marcescens by PCR Not Detected (Not Detect); Staphylococcus aureus by PCR Not Detected (Not Detect); Streptococcus agalactiae(B)PCR Not Detected (Not Detect); Streptococcus by PCR Not Detected (Not Detect); Streptococcus pneumoniae PCR Not Detected (Not Detect); Streptococcus pyogenes (A) PCR Not Detected (Not Detect); blaKPC Carbapenem-Resist Gene Not Detected (Not Detect); mecA Methicillin-Resist Gene Not Detected (Not Detect); vanA/B Vancomycin-Resist Genes Not Detected (Not Detect)
[2017-01-16] MEDS: Ipratropium/Albuterol Neb 3 ML IH SCH ×6 (00:58→20:09)
[2017-01-16 01:09] LABS: ABG Base Excess 1.9 mEq/L (-2.0 to 3.0); ABG HCO3 27.8 mEQ/L (21-27); ABG Oxygen Saturation 89 % (95-98); ABG PCO2 47 mmHg (35-45); ABG PH 7.38 pH Units (7.32-7.45); ABG PO2 58 mmHg (85-104); ABG TCO2 29.2 mEq/L (20-26)
[2017-01-16 01:10] LABS: Blood Gas FiO2 40 %
[2017-01-16] MEDS: *HR* OxyCODONE Immed Rel 15 MG TABLET PO SCH ×4 (03:10→17:14)
[2017-01-16] MEDS: *HR* Heparin 5,000 UNIT/ML VIAL SQ SCH ×3 (05:49→22:56)
[2017-01-16 06:01] LABS: Basophils % 0.1 %; Hematocrit 44.6 % (37.5-50.1); Hemoglobin 14.4 g/dL (12.9-16.9); Immature Granulocytes % 0.7 % (0-4); Lymphocytes # 0.6 K/mcL (0.6-4.6); Lymphocytes % 4.3 %; Mean Corpuscular HGB Conc 32.3 g/dL (31.6-35.5); Mean Corpuscular Hemoglobin 33.2 pg (28.0-33.3); Mean Corpuscular Volume 102.8 fL (83.0-100.0); Mean Platelet Volume 10.3 fL (9.4-12.4); Monocytes # 0.4 K/mcL (0.0-1.3); Monocytes % 2.6 %; Neutrophils # 13.5 K/mcL (1.6-8.9); Platelet Count 175 K/mcL (140-400); Red Blood Count 4.34 M/mcL (4.19-5.50); Red Cell Distribution Width 13.2 % (11.5-14.5); Segmented Neutrophils % 92.3 %
[2017-01-16 06:18] LABS: BUN/Creatinine Ratio 19 (6-26); Blood Urea Nitrogen 21 mg/dL (8-26); Calcium 9.7 mg/dL (8.6-10.8); Carbon Dioxide 28 mEq/L (19-29); Chloride 99 mEq/L (98-109); Glucose 169 mg/dL (70-99); Magnesium 2.4 mg/dL (1.6-2.6); Osmolality,Calculated 285 (280-300); Sodium 134 mEq/L (136-145); eGFR For African Americans > 60 (> 60); eGFR For Non-African Americans > 60 (> 60)
[2017-01-16 06:19] LABS: Potassium 5.2 mEq/L (3.5-4.5)
--- NOTE | 2017-01-16 06:47 | Pulmonology Progress Note ---
Date of Encounter: 01/16/17 Time of Encounter: 06:47 Assessment and Plan (1) Acute and chronic respiratory failure Current Visit: Yes Status: Acute Impression: 1. Acute on Chronic Hypoxic Respiratory Failure 2. COPD 3. Pulmonary Fibrosis 4. HFrEF 5. Suspected Sleep-Disordered Breathing 6. Possible Bacteremia Recs: -Wean supplemental oxygen to keep saturation greater than 88 to approximately 92 % would encourage incentive spirometry out of bed to chair and ambulation when tolerated under supervision and monitoring as clinically safe to do so\ -Continued metered dose inhalers and supplemental bronchodilators as needed agree with steroids which can be delivered by mouth and tapered over 2 weeks -Likely combination of emphysema and pulmonary fibrosis -Cardiology following the patient favor more aggressive diuresis and monitoring her renal function/electrolytes - I Have added IV lasix dose today. -Recommend bilevel positive airway pressure support for comfort during the day and would empirically cont night he will need a formal polysomnogram as an outpatient -Gram-positive rods noted in 1 out of 2 cultures although the PCR was negative I suspect this is a contamination at the very least however blood cultures should be repeated if further clinical suspicion started empiric antimicrobial -Continue chemical DVT prophylaxis unless contraindication arises I discussed my recommendations directly with the primary hospitalist Qualifiers: Respiratory failure complication: hypoxia Qualified Code(s): J96.21 - Acute and chronic respiratory failure with hypoxia (2) Pulmonary fibrosis, unspecified Current Visit: Yes Status: Acute (3) Pulmonary hypertension Current Visit: Yes Status: Acute (4) COPD (chronic obstructive pulmonary disease) Current Visit: Yes Status: Chronic Qualifiers: COPD type: emphysema Emphysema type: panlobular Qualified Code(s): J43.1 - Panlobular emphysema (5) Acute on chronic systolic (congestive) heart failure Current Visit: Yes Status: Acute (6) Mediastinal lymphadenopathy Current Visit: Yes Status: Chronic (7) Pulmonary hypertension Current Visit: Yes Status: Acute (8) Sleep-disordered breathing Current Visit: Yes Status: Acute (9) DVT prophylaxis Current Visit: Yes Status: Acute Subjective Principal diagnosis: Respiratory Failure Interval history: Slept well with bilevel positive airway pressure support. In general he says his breathing is a bit better today Objective PUL Vital signs: Last Vital Signs Temp 97.9 F 01/16/17 04:39 Pulse 98 01/16/17 04:39 Resp 20 01/16/17 05:10 BP 138/87 01/16/17 04:39 Pulse Ox 89 01/16/17 05:10 General appearance: no acute distress Auscultation: bilateral: rales Cardiovascular: regular rate and rhythm Extremities: edema normal mental status, non-focal exam mood appropriate Results - Laboratory Findings CBC and BMP: 01/16/17 05:32 01/16/17 05:32 ABG ABG pH 7.38 pH Units (7.32-7.45) 01/16/17 00:55 ABG pCO2 47 mmHg (35-45) H 01/16/17 00:55 ABG pO2 58 mmHg (85-104) L 01/16/17 00:55 ABG O2 Saturation 89 % (95-98) L 01/16/17 00:55 PT/INR, D-dimer PT 16.3 Seconds (9.4-12.1) H 01/10/17 14:34 Abnormal lab findings: Abnormal lab results WBC 14.7 K/mcL (4.3-11.1) H 01/16/17 05:32 MCV 102.8 fL (83.0-100.0) H 01/16/17 05:32 Neutrophils # 13.5 K/mcL (1.6-8.9) H 01/16/17 05:32 PT 16.3 Seconds (9.4-12.1) H 01/10/17 14:34 ABG pCO2 47 mmHg (35-45) H 01/16/17 00:55 ABG pO2 58 mmHg (85-104) L 01/16/17 00:55 ABG HCO3 27.8 mEQ/L (21-27) H 01/16/17 00:55 ABG Total CO2 29.2 mEq/L (20-26) H 01/16/17 00:55 ABG O2 Saturation 89 % (95-98) L 01/16/17 00:55 Sodium 134 mEq/L (136-145) L 01/16/17 05:32 Potassium 5.2 mEq/L (3.5-4.5) H 01/16/17 05:32 Glucose 169 mg/dL (70-99) H 01/16/17 05:32 Total Bilirubin 3.7 mg/dL (0.2-1.2) H 01/10/17 14:34 Indirect Bilirubin 3.2 mg/dL (0.0-1.2) H 01/10/17 14:34 B-Natriuretic Peptide 173 pg/mL (0-100) H 01/12/17 14:02 Globulin 3.8 g/dL (2.4-3.5) H 01/10/17 14:34 Albumin/Globulin Ratio 1.0 (1.1-2.2) L 01/10/17 14:34 - Clinical Findings Intake & Output: Intake & Output 01/15/17 01/15/17 01/16/17 15:59 23:59 07:59 Intake Total 360 / 360 240 / 240 Balance 360 / 360 240 / 240 Weight 89 kg Consult Discharge Plan - Plan Referrals: Jani Slaughter MD [Primary Care Provider] - Mary Lala CNP [Advanced Practice Nurse] - 01/21/17 1:45 pm
[2017-01-16] MEDS: Budesonide/Formoterol 160/4.5 MDI IH SCH ×2 (07:48→20:09)
[2017-01-16] MEDS: Isosorbide MONOnitrate (24 HR) 60 MG TAB.ER.24H PO SCH (08:44)
[2017-01-16] MEDS: methylPREDNISolone 125 MG/2 ML VIAL IVP SCH (08:44)
[2017-01-16] MEDS: Furosemide 40 MG/4 ML VIAL IVP SCH ×2 (08:44→17:13)
[2017-01-16] MEDS: Ranolazine 500 MG TAB.ER.12H PO SCH ×2 (08:45→20:17)
[2017-01-16] MEDS: Aspirin Enteric Coated 81 MG Tablet PO SCH (08:45)
[2017-01-16] MEDS: Fenofibrate 54 MG TABLET PO SCH (08:45)
[2017-01-16] MEDS: ZETIA 10 MG PO SCH (08:45)
[2017-01-16] MEDS: LEDIPASVIR PO SCH (08:46)
[2017-01-16] MEDS: SOFOSBUVIR PO SCH (08:46)
[2017-01-16] MEDS ORDERED: diazePAM 5 MG TABLET PO PRN (10:19)
--- NOTE | 2017-01-16 10:24 | Internal Med Progress Note ---
Date of Encounter: 01/16/17 Time of Encounter: 10:22 - Assessment and plan (1) Acute and chronic respiratory failure with hypoxia Current Visit: Yes Status: Acute Assessment and plan: improving slowly Currently requiring 5 lit o2 Use BiPAP PRN durin day time and QHS at bed time Reviewed his ABG - showed mild hypercapnea Pt does need to BiPAP to go home try to wean him to his baseline O2 slowly Cont Yousufoneluz Started tapering his steroids (2) Pneumonia Current Visit: No Status: Acute Assessment and plan: Reviewed CXR - showing patchy infiltrates RML, RLL mostly infectious will start him on empirical abx with Cefepime will sent for sputum cx his blood cx /2 positive for G+ve rods due to contamination Qualifiers: Pneumonia type: due to unspecified organism Laterality: right Lung location: lower lobe of lung Qualified Code(s): J18.1 - Lobar pneumonia, unspecified organism (3) COPD (chronic obstructive pulmonary disease) Current Visit: Yes Status: Chronic Assessment and plan: He does have severe COPD exacerbation - with end stage lung disease it does look like he does not have much active lung tissue left started tapering steroids Cont Dolores Will use BiPAP PRN during day time and continuous at bed time He may get benefit with over night BiPAP study before he goes home Qualifiers: COPD type: emphysema Emphysema type: panlobular Qualified Code(s): J43.1 - Panlobular emphysema (4) Acute on chronic systolic (congestive) heart failure Current Visit: Yes Status: Acute Assessment and plan: Since he is still having severe SOB and some crackles on lung examination agree with starting him IV Lasix resumed all other home meds (5) Pulmonary fibrosis, unspecified Current Visit: Yes Status: Acute (6) CAD (coronary artery disease) Current Visit: Yes Status: Acute Assessment and plan: s/p CABG and stents cont ASA, Plavix, Statin and B jazmín Qualifiers: Qualified Code(s): I25.10 - Atherosclerotic heart disease of [place] coronary artery without angina pectoris (7) Anxiety Current Visit: Yes Status: Acute Assessment and plan: He does take Valium 5mg Q6hr almost scheduled at home His current tremors could be due to Benzo withdrawl placed him back on Valium (8) DVT prophylaxis Current Visit: Yes Status: Acute Assessment and plan: on SQ heparin - Subjective Interval history: Mr. West is a 66 year old male with pmh significant for severe CAD. He is s/p CABG on 2 separate occasions. The most recent CABG was in 2002. He has also had stents placed after his most recent CABG. additionally he has a history of COPD and emphysema and is O2 dependant (2L) was preseted to out ER on 01/10/17 with worsening SOB and hypoxia. Pt was admitted here for acute on chronic hypoxic respiratory failure with COPD exacerbation and CHF exacerbation. Today pt is alert, awake, O x3. Still c/p moderate SOB and MEYER. Denied any CP. Cough +. No fever, however he started having tremors since last night. Currently he is on BiPAP. - Constitutional Vitals: Temp Pulse Resp BP Pulse Ox 98.0 F 100 16 121/77 95 01/16/17 07:35 01/16/17 07:35 01/16/17 07:35 01/16/17 07:35 01/16/17 07:35 General appearance: Present: cooperative, mild distress, A&O X 3, pleasant, answers questions appropriately - Head Head exam: Present: atraumatic, normal inspection - Respiratory Respiratory exam: Present: decreased breath sounds, rales (mild), respiratory distress, wheezes (moderate to severe). Absent: rhonchi - Cardiovascular Cardiovascular exam: Present: gallop, RRR, +S1, +S2 - GI/Abdominal GI/Abdominal exam: Present: normal bowel sounds, soft. Absent: rebound, rigid, tenderness - Extremities Exam Extremities exam: Present: pedal edema. Absent: calf tenderness, tenderness - Psychiatric Psychiatric exam: Present: anxious Internal Medicine: Result - Labs CBC & Chem 7: 01/16/17 05:32 01/16/17 05:32 Labs: Short CBC 01/16/17 Range/Units 05:32 WBC 14.7 H (4.3-11.1) K/mcL Hgb 14.4 (12.9-16.9) g/dL Hct 44.6 (37.5-50.1) % Plt Count 175 (140-400) K/mcL Neutrophils # 13.5 H (1.6-8.9) K/mcL BMP 01/16/17 05:32 Sodium 134 L Potassium 5.2 H Chloride 99 Carbon Dioxide 28 BUN 21 Creatinine 1.10 Glucose 169 H Calcium 9.7 - ABG Interpretation ABG results: ABG ABG pH 7.38 pH Units (7.32-7.45) 01/16/17 00:55 ABG pCO2 47 mmHg (35-45) H 01/16/17 00:55 ABG pO2 58 mmHg (85-104) L 01/16/17 00:55 ABG O2 Saturation 89 % (95-98) L 01/16/17 00:55 PT/INR, D-dimer PT 16.3 Seconds (9.4-12.1) H 01/10/17 14:34 - Impressions Impressions Chest X-Ray 01/15/17 12:28 IMPRESSION: New minimal right basilar atelectasis versus pneumonia. Persistent mild increased interstitial markings which may be related to mild edema or chronic interstitial disease, similar in appearance. D/ / Terri Bryan MD / Terri Bryan MD Interpreting Provider: Terri Bryan MD Consult Discharge Plan - Plan Referrals: Jani Slaughter MD [Primary Care Provider] - Mary Lala CNP [Advanced Practice Nurse] - 01/21/17 1:45 pm
[2017-01-16] MEDS: MethylPREDNISolone 40 MG/ML VIAL IVP SCH ×2 (11:17→22:56)
--- NOTE | 2017-01-16 11:56 | Cardiology Progress Note ---
Date of Encounter: 01/16/17 Time of Encounter: 10:00 Assessment and Plan (1) Idioventricular rhythm Current Visit: Yes Status: Acute ECG/telemetry reviewed by Dr. Darinel Marina. Rhythm is concerning for slow VT and recommends to start mexiletine (unable to start amio d/t pulmonary fibrosis). Anticipate starting Mexiletine 150 mg Q8H today. Obtain daily ECG's. Will continue to monitor telemetry and HR. Device check completed today: normal functioning dual chamber ICD; atrial/ ventricular sensing at 104 bpm, good battery life, all device measurements are appropriate. [VT range >171 bpm, VT monitoring >154 bpm at least 16 beats]. Will continue to follow. (2) Systolic heart failure Current Visit: Yes Status: Acute Long standing history of ischemic cardiomyopathy with systolic CHF s/p ICD. Suspect dyspnea likely mutifactorial in etiology given pulmonary fibrosis. Patient has diuresed >2.5 L since admission; he appears euvolemic upon exam. Continue betablocker and nitrates. Resume ARB upon discharge. IV lasix started today by Pulm. Strit I&O's, daily weights, Na/fluid restriction diet. Will continue to follow. Qualifiers: Heart failure chronicity: acute on chronic Qualified Code(s): I50.23 - Acute on chronic systolic (congestive) heart failure (3) CAD (coronary artery disease) Current Visit: Yes Status: Acute Hx of CAD s/p CABG. continue ASA, plavix, nitrates, ranexa, betablocker, and statin. Also on fenofibrate and Zetia. Qualifiers: Coronary Disease-Associated Artery/Lesion type: bypass graft [place] vs. transplanted heart: [place] heart Associated angina: without angina Qualified Code(s): I25.810 - Atherosclerosis of coronary artery bypass graft(s) without angina pectoris Discussion w patient/family: The assessment and plan as outlined above was discussed with the patient and/or family members who expressed understanding and agreement. All questions were answered. Thank you for involving us in the care of your patient. Please call with any questions. The patient will be discussed and reviewed with Dr. Quinonez; changes to be made accordingly. Subjective Principal diagnosis: Respiratory Failure Interval history: Seen and examined. He has no complaints overnight. Continues to have issues with ozygen saturation. Objective Vital Signs, Last 4 Hours Temp Pulse Resp BP Pulse Ox 01/16/17 11:11 98.2 F 104 22 141/91 86 01/16/17 10:22 21 93 General: Conversant, No Apparent Distress HEENT: Atraumatic, Normocephaly, Mucus Membranes Moist Cardiac: Reg Rate and Rhythm, Normal S1 and S2 Lungs: Normal Breath Sounds Neuro: Alert and responsive Abdomen: Soft Skin: No rashes noted on visualized skin Musculoskeletal: No Chest Wall Tenderness Extremities: No Edema, Normal Pulses Results 01/16/17 05:32 01/16/17 05:32 Lab Results 01/16/17 01/16/17 05:32 05:32 WBC 14.7 H Hgb 14.4 Hct 44.6 Plt Count 175 Sodium 134 L Potassium 5.2 H Chloride 99 Carbon Dioxide 28 BUN 21 Creatinine 1.10 Glucose 169 H Calcium 9.7 Magnesium 2.4 Active Medications Acetaminophen (Tylenol) 650 mg PO Q6HR PRN PRN Reason: Pain Stop: 07/14/17 01:00 Last Admin: 01/12/17 01:24 Dose: 650 mg Albuterol/Ipratropium (Duoneb) 3 ml IH [id number] [facility] PRN Reason: Protocol Stop: 07/14/17 20:01 Last Admin: 01/16/17 11:16 Dose: 3 ml Aspirin (Aspirin Ec) 81 mg PO DAILY [facility] Stop: 07/18/17 09:01 Last Admin: 01/16/17 08:45 Dose: 81 mg Atorvastatin Calcium (Lipitor) 40 mg PO DAILY [facility] Stop: 07/13/17 09:01 Last Admin: 01/16/17 08:45 Dose: 40 mg Budesonide/Formoterol Fumarate (Symbicort) 2 puff IH BIDR [facility] PRN Reason: Protocol Stop: 07/12/17 22:01 Last Admin: 01/16/17 07:48 Dose: Not Given Carvedilol (Coreg) 25 mg PO BID [facility] PRN Reason: Protocol Stop: 07/12/17 21:01 Last Admin: 01/16/17 08:45 Dose: 25 mg Clopidogrel Bisulfate (Plavix) 75 mg PO DAILY [facility] Stop: 07/13/17 09:01 Last Admin: 01/16/17 08:44 Dose: 75 mg Diazepam (Valium) 5 mg PO Q6H PRN PRN Reason: Anxiety Stop: 07/18/17 10:20 Fenofibrate (Tricor) 162 mg PO DAILY [facility] PRN Reason: Protocol Stop: 07/12/17 20:46 Last Admin: 01/16/17 08:45 Dose: 162 mg Furosemide (Lasix) 40 mg IVP BIDDIURETIC [facility] Stop: 07/18/17 09:01 Last Admin: 01/16/17 08:44 Dose: 40 mg Guaifenesin (Mucinex) 1,200 mg PO BID [facility] Stop: 07/15/17 20:14 Last Admin: 01/16/17 08:45 Dose: 1,200 mg Heparin Sodium (Porcine) (Heparin) 5,000 unit SQ Q8HCO [facility] Stop: 07/12/17 22:01 Last Admin: 01/16/17 05:49 Dose: 5,000 unit Cefepime HCl 1,000 mg/ (Dextrose) 100 mls @ 200 mls/hr IVPB Q12HR [facility] Stop: 07/18/17 18:01 Isosorbide Mononitrate (Imdur) 120 mg PO DAILY [facility] Stop: 07/13/17 09:01 Last Admin: 01/16/17 08:44 Dose: 120 mg Methylprednisolone (Solu-Medrol) 40 mg IVP Q12H [facility] Stop: 07/18/17 10:31 Last Admin: 01/16/17 11:17 Dose: Not Given Naloxone HCl (Narcan) 0.4 mg IVP Q2MIN PRN PRN Reason: Opioid Reversal Stop: 07/12/17 19:55 Omeprazole (Prilosec) 20 mg PO DAILY@0630 [facility] PRN Reason: Protocol Stop: 07/13/17 06:31 Last Admin: 01/16/17 05:49 Dose: 20 mg Oxycodone HCl (Roxicodone) 30 mg PO Q6HR [facility] Stop: 07/14/17 18:01 Last Admin: 01/16/17 11:52 Dose: 30 mg Pharmacy Profile Note (Patient Taking Own Medication) 1 each PO DAILY [facility] Stop: 07/13/17 09:01 Last Admin: 01/16/17 08:46 Dose: Not Given Pharmacy Profile Note (Patient Taking Own Medication) 0 each PO DAILY [facility] Stop: 07/14/17 09:01 Last Admin: 01/16/17 08:45 Dose: 1 each Ranolazine (Ranexa) 1,000 mg PO BID [facility] Stop: 07/12/17 21:01 Last Admin: 01/16/17 08:45 Dose: 1,000 mg - Imaging and Cardiology Echo: report reviewed Other Results: 12 hour tele: avg EX=[id number]. Episodes of idioventicular rhythm noted. - EKG Interpretation EKG results cardiology: personally reviewed Consult Discharge Plan - Plan Referrals: Jani Slaughter MD [Primary Care Provider] - Mary Lala CNP [Advanced Practice Nurse] - 01/21/17 1:45 pm
[2017-01-16] MEDS: Cefepime HCl 1,000 MG in D5% in Water (Mini-Bag+) 100 ML IVPB SCH (17:14)
[2017-01-16 17:59] LABS: Albumin 3.5 g/dL (3.5-5.0); BUN/Creatinine Ratio 22 (6-26); Blood Urea Nitrogen 26 mg/dL (8-26); Calcium 9.4 mg/dL (8.6-10.8); Carbon Dioxide 30 mEq/L (19-29); Chloride 99 mEq/L (98-109); Glucose 206 mg/dL (70-99); Osmolality,Calculated 293 (280-300); Phosphorous 2.3 mg/dL (2.3-4.7); Potassium 4.4 mEq/L (3.5-4.5); Sodium 136 mEq/L (136-145); eGFR For African Americans > 60 (> 60); eGFR For Non-African Americans > 60 (> 60)
[2017-01-17] MEDS: Ipratropium/Albuterol Neb 3 ML IH SCH ×6 (01:19→19:48)
[2017-01-17 01:55] LABS: Basophils % 0.1 %; Hemoglobin 14.9 g/dL (12.9-16.9); Lymphocytes # 0.8 K/mcL (0.6-4.6); Lymphocytes % 5.4 %; Mean Corpuscular HGB Conc 33.1 g/dL (31.6-35.5); Mean Corpuscular Hemoglobin 33.6 pg (28.0-33.3); Mean Corpuscular Volume 101.6 fL (83.0-100.0); Mean Platelet Volume 11.1 fL (9.4-12.4); Monocytes # 0.4 K/mcL (0.0-1.3); Monocytes % 3.1 %; Platelet Count 182 K/mcL (140-400); Red Blood Count 4.43 M/mcL (4.19-5.50); Red Cell Distribution Width 13.3 % (11.5-14.5); Segmented Neutrophils % 90.4 %
[2017-01-17 02:11] LABS: BUN/Creatinine Ratio 21 (6-26); Blood Urea Nitrogen 26 mg/dL (8-26); Calcium 9.5 mg/dL (8.6-10.8); Carbon Dioxide 27 mEq/L (19-29); Chloride 99 mEq/L (98-109); Glucose 187 mg/dL (70-99); Magnesium 2.6 mg/dL (1.6-2.6); Osmolality,Calculated 296 (280-300); Potassium 4.2 mEq/L (3.5-4.5); Sodium 138 mEq/L (136-145); eGFR For African Americans > 60 (> 60); eGFR For Non-African Americans 60 (> 60)
[2017-01-17] MEDS: *HR* OxyCODONE Immed Rel 15 MG TABLET PO SCH ×5 (03:37→23:30)
[2017-01-17] MEDS: Cefepime HCl 1,000 MG in D5% in Water (Mini-Bag+) 100 ML IVPB SCH ×2 (06:10→16:51)
[2017-01-17] MEDS: *HR* Heparin 5,000 UNIT/ML VIAL SQ SCH ×3 (06:10→22:02)
--- NOTE | 2017-01-17 07:15 | Cardiology Progress Note ---
Date of Encounter: 01/17/17 Time of Encounter: 06:10 Assessment and Plan (1) Idioventricular rhythm Current Visit: Yes Status: Acute ECG/telemetry reviewed by Dr. Darinel Marina. Rhythm is concerning for slow VT and recommends to start mexiletine (unable to start amio d/t pulmonary fibrosis). Mexiletine 150 mg Q8H started on 01/16/17; s/p 2 doses. Baseline ECG 01/16/17: HR 99 QRS 171 QT/QTc 421/478 ms. Continues to have idioventicular rhythm noted per telemetry review, rate 99- 109. Will continue to monitor telemetry and HR. Device check completed today: normal functioning dual chamber ICD; atrial/ ventricular sensing at 104 bpm, good battery life, all device measurements are appropriate. [VT range >171 bpm, VT monitoring >154 bpm at least 16 beats]. Will continue to follow. (2) Systolic heart failure Current Visit: Yes Status: Acute Long standing history of ischemic cardiomyopathy with systolic CHF s/p ICD. Suspect dyspnea likely mutifactorial in etiology given pulmonary fibrosis. Patient has diuresed >3.8 L since admission; he appears euvolemic upon exam; would recommend stopping IV diuresis and transition to po maintenance dose. Continue betablocker and nitrates. Resume ARB upon discharge. IV lasix started today by Pulm. Strit I&O's, daily weights, Na/fluid restriction diet. Will continue to follow. Qualifiers: Heart failure chronicity: acute on chronic Qualified Code(s): I50.23 - Acute on chronic systolic (congestive) heart failure (3) CAD (coronary artery disease) Current Visit: Yes Status: Acute Hx of CAD s/p CABG. continue ASA, plavix, nitrates, ranexa, betablocker, and statin. Also on fenofibrate and Zetia. Qualifiers: Coronary Disease-Associated Artery/Lesion type: bypass graft [place] vs. transplanted heart: [place] heart Associated angina: without angina Qualified Code(s): I25.810 - Atherosclerosis of coronary artery bypass graft(s) without angina pectoris Discussion w patient/family: The assessment and plan as outlined above was discussed with the patient and/or family members who expressed understanding and agreement. All questions were answered. Thank you for involving us in the care of your patient. Please call with any questions. The patient will be discussed and reviewed with Dr. Quinonez; changes to be made accordingly. Subjective Principal diagnosis: Respiratory Failure Interval history: Seen and examined. He has no complaints overnight. States breathing is somewhat better today after utilizing BiPap overnight (does not have at home). Objective Vital Signs, Last 4 Hours Temp Pulse Resp BP Pulse Ox 01/17/17 03:37 97.3 F L 81 24 125/71 97 01/17/17 03:34 17 95 General: Conversant, No Apparent Distress HEENT: Atraumatic, Normocephaly, Mucus Membranes Moist Cardiac: Reg Rate and Rhythm, Normal S1 and S2 Lungs: Normal Breath Sounds Neuro: Alert and responsive Abdomen: Soft Skin: No rashes noted on visualized skin Musculoskeletal: No Chest Wall Tenderness Extremities: Normal Pulses, Other (mild, non-pitting BLE edema) Results 01/17/17 01:21 01/17/17 01:21 Lab Results 01/16/17 01/16/17 01/17/17 17:34 17:34 01:21 WBC 14.3 H Hgb 14.9 Hct 45.0 Plt Count 182 Sodium 136 Potassium 4.4 Chloride 99 Carbon Dioxide 30 H BUN 26 Creatinine 1.19 Glucose 206 H Calcium 9.4 Magnesium 2.4 01/17/17 01:21 WBC Hgb Hct Plt Count Sodium 138 Potassium 4.2 Chloride 99 Carbon Dioxide 27 BUN 26 Creatinine 1.21 Glucose 187 H Calcium 9.5 Magnesium 2.6 Active Medications Acetaminophen (Tylenol) 650 mg PO Q6HR PRN PRN Reason: Pain Stop: 07/14/17 01:00 Last Admin: 01/12/17 01:24 Dose: 650 mg Albuterol/Ipratropium (Duoneb) 3 ml IH [id number] [facility] PRN Reason: Protocol Stop: 07/14/17 20:01 Last Admin: 01/17/17 03:33 Dose: 3 ml Aspirin (Aspirin Ec) 81 mg PO DAILY [facility] Stop: 07/18/17 09:01 Last Admin: 01/16/17 08:45 Dose: 81 mg Atorvastatin Calcium (Lipitor) 40 mg PO DAILY [facility] Stop: 07/13/17 09:01 Last Admin: 01/16/17 08:45 Dose: 40 mg Budesonide/Formoterol Fumarate (Symbicort) 2 puff IH BIDR [facility] PRN Reason: Protocol Stop: 07/12/17 22:01 Last Admin: 01/16/17 20:09 Dose: 2 puff Carvedilol (Coreg) 25 mg PO BID [facility] PRN Reason: Protocol Stop: 07/12/17 21:01 Last Admin: 01/16/17 20:17 Dose: 25 mg Clopidogrel Bisulfate (Plavix) 75 mg PO DAILY [facility] Stop: 07/13/17 09:01 Last Admin: 01/16/17 08:44 Dose: 75 mg Diazepam (Valium) 5 mg PO Q6H PRN PRN Reason: Anxiety Stop: 07/18/17 10:20 Fenofibrate (Tricor) 162 mg PO DAILY [facility] PRN Reason: Protocol Stop: 07/12/17 20:46 Last Admin: 01/16/17 08:45 Dose: 162 mg Furosemide (Lasix) 40 mg IVP BIDDIURETIC [facility] Stop: 07/18/17 09:01 Last Admin: 01/16/17 17:13 Dose: 40 mg Guaifenesin (Mucinex) 1,200 mg PO BID [facility] Stop: 07/15/17 20:14 Last Admin: 01/16/17 20:17 Dose: 1,200 mg Heparin Sodium (Porcine) (Heparin) 5,000 unit SQ Q8HCO [facility] Stop: 07/12/17 22:01 Last Admin: 01/17/17 06:10 Dose: 5,000 unit Cefepime HCl 1,000 mg/ (Dextrose) 100 mls @ 200 mls/hr IVPB Q12HR [facility] Stop: 07/18/17 18:01 Last Admin: 01/17/17 06:10 Dose: 100 mls/hr Isosorbide Mononitrate (Imdur) 120 mg PO DAILY [facility] Stop: 07/13/17 09:01 Last Admin: 01/16/17 08:44 Dose: 120 mg Methylprednisolone (Solu-Medrol) 40 mg IVP Q12H [facility] Stop: 07/18/17 10:31 Last Admin: 01/16/17 22:56 Dose: 40 mg Mexiletine HCl (Mexitil) 150 mg PO Q8HR [facility] Stop: 07/18/17 16:01 Last Admin: 01/17/17 01:28 Dose: 150 mg Naloxone HCl (Narcan) 0.4 mg IVP Q2MIN PRN PRN Reason: Opioid Reversal Stop: 07/12/17 19:55 Omeprazole (Prilosec) 20 mg PO DAILY@0630 [facility] PRN Reason: Protocol Stop: 07/13/17 06:31 Last Admin: 01/17/17 06:09 Dose: 20 mg Oxycodone HCl (Roxicodone) 30 mg PO Q6HR [facility] Stop: 07/14/17 18:01 Last Admin: 01/17/17 07:13 Dose: Not Given Pharmacy Profile Note (Patient Taking Own Medication) 1 each PO DAILY [facility] Stop: 07/13/17 09:01 Last Admin: 01/16/17 08:46 Dose: Not Given Pharmacy Profile Note (Patient Taking Own Medication) 0 each PO DAILY [facility] Stop: 07/14/17 09:01 Last Admin: 01/16/17 08:45 Dose: 1 each Ranolazine (Ranexa) 1,000 mg PO BID [facility] Stop: 07/12/17 21:01 Last Admin: 01/16/17 20:17 Dose: 1,000 mg - Imaging and Cardiology Echo: report reviewed Other Results: 12 hour tele: avg HR=87. Idioventricular rhythm noted, max rate 109 - EKG Interpretation EKG results cardiology: personally reviewed Consult Discharge Plan - Plan Referrals: Jani Slaughter MD [Primary Care Provider] - Mary Lala CNP [Advanced Practice Nurse] - 01/21/17 1:45 pm
[2017-01-17] MEDS: Budesonide/Formoterol 160/4.5 MDI IH SCH ×2 (07:42→19:48)
[2017-01-17] MEDS: Ranolazine 500 MG TAB.ER.12H PO SCH ×2 (08:08→20:04)
[2017-01-17] MEDS: Isosorbide MONOnitrate (24 HR) 60 MG TAB.ER.24H PO SCH (08:08)
[2017-01-17] MEDS: Fenofibrate 54 MG TABLET PO SCH (08:09)
[2017-01-17] MEDS: Furosemide 40 MG/4 ML VIAL IVP SCH (08:09)
[2017-01-17] MEDS: Aspirin Enteric Coated 81 MG Tablet PO SCH (08:09)
[2017-01-17] MEDS: ZETIA 10 MG PO SCH (08:10)
[2017-01-17] MEDS: LEDIPASVIR PO SCH (08:12)
[2017-01-17] MEDS: SOFOSBUVIR PO SCH (08:12)
--- NOTE | 2017-01-17 08:38 | Internal Med Progress Note ---
Date of Encounter: 01/17/17 Time of Encounter: 08:35 - Assessment and plan (1) Acute and chronic respiratory failure with hypoxia Current Visit: Yes Status: Acute Assessment and plan: improving slowly Currently requiring 5 lit o2 Use BiPAP PRN durin day time and Continuous at bed time Pt does need BiPAP to go home try to wean him to his baseline O2 slowly Cont Dolores Started tapering his steroids (2) Pneumonia Current Visit: No Status: Acute Assessment and plan: Reviewed CXR - showing patchy infiltrates RML, RLL mostly bacterial Cont him on empirical abx with Cefepime will sent for sputum cx his blood cx 1/2 positive for G+ve rods due to contamination Qualifiers: Pneumonia type: due to unspecified organism Laterality: right Lung location: lower lobe of lung Qualified Code(s): J18.1 - Lobar pneumonia, unspecified organism (3) COPD (chronic obstructive pulmonary disease) Current Visit: Yes Status: Chronic Assessment and plan: He does have severe COPD exacerbation - with end stage lung disease it does look like he does not have much active lung tissue left started tapering steroids Cont Dolores Will use BiPAP PRN during day time and continuous at bed time He may get benefit with over night BiPAP study before he goes home Qualifiers: COPD type: emphysema Emphysema type: panlobular Qualified Code(s): J43.1 - Panlobular emphysema (4) Idioventricular rhythm Current Visit: Yes Status: Acute Assessment and plan: EKG up on admission and on monitor he does have slow ventricular response / slow VT AICD got interrogated y/d - normal functioning dual chamber AICD Card started him on Mexiletine 150mg q8hr (5) Acute on chronic systolic (congestive) heart failure Current Visit: Yes Status: Acute Assessment and plan: had -2605 negative fluid balance received lasix 40 IV dose this morning will switch to PO Lasix now resumed all other home meds (6) Pulmonary fibrosis, unspecified Current Visit: Yes Status: Acute (7) CAD (coronary artery disease) Current Visit: Yes Status: Acute Assessment and plan: s/p CABG and stents cont ASA, Plavix, Statin and B jazmín Qualifiers: Coronary Disease-Associated Artery/Lesion type: bypass graft [place] vs. transplanted heart: [place] heart Associated angina: without angina Qualified Code(s): I25.810 - Atherosclerosis of coronary artery bypass graft(s) without angina pectoris (8) Anxiety Current Visit: Yes Status: Acute Assessment and plan: He does take Valium 5mg Q6hr almost scheduled at home His current tremors could be due to Benzo withdrawl changed his Valium to Q8hr scheduled (9) DVT prophylaxis Current Visit: Yes Status: Acute Assessment and plan: on SQ heparin - Subjective Interval history: Mr. West is a 66 year old male with PMHx significant for severe CAD. He is s/ p CABG on 2 separate occasions. The most recent CABG was in 2002. He has also had stents placed after his most recent CABG. additionally he has a history of COPD and emphysema and is O2 dependant (2L) was preseted to out ER on 01/10/17 with worsening SOB and hypoxia. Pt was admitted here for acute on chronic hypoxic respiratory failure with COPD exacerbation and CHF exacerbation. Today pt is alert, awake, O x3. Still c/p moderate SOB and MEYER. Denied any CP. Cough + . No fever. Currently he is on 5 lit O2 at resting. - Constitutional Vitals: Temp Pulse Resp BP Pulse Ox 97.5 F L 84 20 118/79 93 01/17/17 07:00 01/17/17 07:00 01/17/17 07:00 01/17/17 07:00 01/17/17 07:00 General appearance: Present: cooperative, mild distress, A&O X 3, pleasant, answers questions appropriately - Head Head exam: Present: atraumatic, normal inspection - Respiratory Respiratory exam: Present: decreased breath sounds, rales (at basal), respiratory distress, wheezes. Absent: rhonchi - Cardiovascular Cardiovascular exam: Present: RRR, +S1, +S2. Absent: systolic murmur - GI/Abdominal GI/Abdominal exam: Present: normal bowel sounds, soft. Absent: rebound, rigid, tenderness - Extremities Exam Extremities exam: Present: pedal edema. Absent: calf tenderness, tenderness - Neurological Exam Neurological exam: Present: alert, oriented X3 - Psychiatric Psychiatric exam: Present: normal affect, normal mood Internal Medicine: Result - Labs CBC & Chem 7: 01/17/17 01:21 01/17/17 01:21 Labs: Short CBC 01/17/17 Range/Units 01:21 WBC 14.3 H (4.3-11.1) K/mcL Hgb 14.9 (12.9-16.9) g/dL Hct 45.0 (37.5-50.1) % Plt Count 182 (140-400) K/mcL Neutrophils # 13.0 H (1.6-8.9) K/mcL BMP 01/16/17 01/17/17 17:34 01:21 Sodium 136 138 Potassium 4.4 4.2 Chloride 99 99 Carbon Dioxide 30 H 27 BUN 26 26 Creatinine 1.19 1.21 Glucose 206 H 187 H Calcium 9.4 9.5 Liver Function 01/16/17 Range/Units 17:34 Albumin 3.5 (3.5-5.0) g/dL - ABG Interpretation ABG results: ABG ABG pH 7.38 pH Units (7.32-7.45) 01/16/17 00:55 ABG pCO2 47 mmHg (35-45) H 01/16/17 00:55 ABG pO2 58 mmHg (85-104) L 01/16/17 00:55 ABG O2 Saturation 89 % (95-98) L 01/16/17 00:55 PT/INR, D-dimer PT 16.3 Seconds (9.4-12.1) H 01/10/17 14:34 Consult Discharge Plan - Plan Referrals: Jani Slaughter MD [Primary Care Provider] - Mary Lala CNP [Advanced Practice Nurse] - 01/21/17 1:45 pm
--- NOTE | 2017-01-17 08:48 | Pulmonology Progress Note ---
Date of Encounter: 01/17/17 Time of Encounter: 08:48 Assessment and Plan (1) Acute and chronic respiratory failure Current Visit: Yes Status: Acute Impression: 1. Acute on Chronic Hypoxic Respiratory Failure 2. COPD 3. Pulmonary Fibrosis 4. HFrEF 5. Suspected Sleep-Disordered Breathing 6. Possible Bacteremia Recs: -Wean supplemental oxygen to keep saturation greater than 88 to approximately 92 % would encourage incentive spirometry out of bed to chair and ambulation when tolerated under supervision and monitoring as clinically safe to do so\ -Continued metered dose inhalers and supplemental bronchodilators as needed agree with steroids which can be delivered by mouth and tapered over 2 weeks -Likely combination of emphysema and pulmonary fibrosis -Diuresed well overnight would not give additional doses of IV diuretic continue oral dose as scheduled -Gram-positive rods noted in 1 out of 2 cultures although the PCR was negative I suspect this is a contamination medicine services started cefepime recommend repeat blood cultures if not already obtained -Continue chemical DVT prophylaxis unless contraindication arises Qualifiers: Respiratory failure complication: hypoxia Qualified Code(s): J96.21 - Acute and chronic respiratory failure with hypoxia (2) Pulmonary fibrosis, unspecified Current Visit: Yes Status: Acute (3) Pulmonary hypertension Current Visit: Yes Status: Acute (4) COPD (chronic obstructive pulmonary disease) Current Visit: Yes Status: Chronic Qualifiers: COPD type: emphysema Emphysema type: panlobular Qualified Code(s): J43.1 - Panlobular emphysema (5) Acute on chronic systolic (congestive) heart failure Current Visit: Yes Status: Acute (6) Mediastinal lymphadenopathy Current Visit: Yes Status: Chronic (7) Pulmonary hypertension Current Visit: Yes Status: Acute (8) Sleep-disordered breathing Current Visit: Yes Status: Acute (9) DVT prophylaxis Current Visit: Yes Status: Acute Subjective Principal diagnosis: Respiratory Failure Interval history: Slept well with bilevel positive airway pressure support. Each day he improves a bit. Still requiring 5-6 L high flow nasal cannula he was able to get up and walk around a bit yesterday but does continued to desat quickly Objective PUL Vital signs: Last Vital Signs Temp 97.5 F L 01/17/17 07:00 Pulse 84 01/17/17 07:00 Resp 20 01/17/17 07:00 BP 118/79 01/17/17 07:00 Pulse Ox 93 01/17/17 07:00 General appearance: no acute distress Auscultation: bilateral: rhonchi Cardiovascular: regular rate and rhythm Extremities: pink and warm, edema normal mental status, non-focal exam mood appropriate Results - Laboratory Findings CBC and BMP: 01/17/17 01:21 01/17/17 01:21 ABG ABG pH 7.38 pH Units (7.32-7.45) 01/16/17 00:55 ABG pCO2 47 mmHg (35-45) H 01/16/17 00:55 ABG pO2 58 mmHg (85-104) L 01/16/17 00:55 ABG O2 Saturation 89 % (95-98) L 01/16/17 00:55 PT/INR, D-dimer PT 16.3 Seconds (9.4-12.1) H 01/10/17 14:34 Abnormal lab findings: Abnormal lab results WBC 14.3 K/mcL (4.3-11.1) H 01/17/17 01:21 MCV 101.6 fL (83.0-100.0) H 01/17/17 01:21 MCH 33.6 pg (28.0-33.3) H 01/17/17 01:21 Neutrophils # 13.0 K/mcL (1.6-8.9) H 01/17/17 01:21 PT 16.3 Seconds (9.4-12.1) H 01/10/17 14:34 ABG pCO2 47 mmHg (35-45) H 01/16/17 00:55 ABG pO2 58 mmHg (85-104) L 01/16/17 00:55 ABG HCO3 27.8 mEQ/L (21-27) H 01/16/17 00:55 ABG Total CO2 29.2 mEq/L (20-26) H 01/16/17 00:55 ABG O2 Saturation 89 % (95-98) L 01/16/17 00:55 Glucose 187 mg/dL (70-99) H 01/17/17 01:21 Total Bilirubin 3.7 mg/dL (0.2-1.2) H 01/10/17 14:34 Indirect Bilirubin 3.2 mg/dL (0.0-1.2) H 01/10/17 14:34 B-Natriuretic Peptide 173 pg/mL (0-100) H 01/12/17 14:02 Globulin 3.8 g/dL (2.4-3.5) H 01/10/17 14:34 Albumin/Globulin Ratio 1.0 (1.1-2.2) L 01/10/17 14:34 - Clinical Findings Intake & Output: Intake & Output 01/16/17 01/17/17 01/17/17 23:59 07:59 15:59 Intake Total 680 / 680 360 / 360 Output Total 1570 / 1570 250 / 250 Balance -890 / -890 110 / 110 Weight 89.1 kg Consult Discharge Plan - Plan Referrals: Jani Slaughter MD [Primary Care Provider] - Mary Lala CNP [Advanced Practice Nurse] - 01/21/17 1:45 pm
[2017-01-17] MEDS: predniSONE 20 MG TABLET PO SCH (11:23)
[2017-01-17] MEDS: diazePAM 5 MG TABLET PO SCH ×4 (11:23→22:02)
--- NOTE | 2017-01-17 12:05 | Electrocardiograph Report ---
[place] [id number] Test Date: 2017-01-14 Pat Name: Eric West Department: 113 Room: 08 Gender: Telephone Service Adviser: RAMONE : 1950 Requested By: Blessing Covarrbuias Order Number: [id number] Reading MD: Tamiko Quinonez Measurements Intervals [place] Rate: 107 P: -57 CT: 170 QRS: -59 QRSD: 165 T: 118 QT: 425 QTc: 487 Interpretive Statements POSSIBLY SLOW VENTRICULAR RHYTHM Electronically Signed On 01-17-2017 12:04:01 EDT by Tamiko Quinonez
--- NOTE | 2017-01-17 13:11 | Electrocardiograph Report ---
[place] [address] Test Date: 2017-01-16 Pat Name: Eric West Department: 110 Room: 08 Gender: M User Experience Architect: DAVID : 1950 Requested By: Blessing Covarrubias Order Number: [id number] Reading MD: Tamiko Quinonez Measurements Intervals [place] Rate: 100 P: -49 MD: 176 QRS: -59 QRSD: 174 T: 122 QT: 419 QTc: 476 Interpretive Statements POSSIBLE VENTRICULAR RHYTHM Electronically Signed On 01-17-2017 13:09:28 EDT by Tamiko Quinonez
[2017-01-17] MEDS: Furosemide 40 MG TABLET PO SCH (16:51)
[2017-01-18] MEDS: Ipratropium/Albuterol Neb 3 ML IH SCH ×6 (00:04→20:29)
[2017-01-18] MEDS: Cefepime HCl 1,000 MG in D5% in Water (Mini-Bag+) 100 ML IVPB SCH ×2 (06:06→17:57)
[2017-01-18] MEDS: *HR* Heparin 5,000 UNIT/ML VIAL SQ SCH ×3 (06:06→21:14)
[2017-01-18] MEDS: *HR* OxyCODONE Immed Rel 15 MG TABLET PO SCH ×2 (06:18→11:17)
[2017-01-18 06:34] LABS: ABG Base Excess 9.8 mEq/L (-2.0 to 3.0); ABG HCO3 34.3 mEQ/L (21-27); ABG Oxygen Saturation 95 % (95-98); ABG PCO2 44 mmHg (35-45); ABG PO2 67 mmHg (85-104); ABG TCO2 35.7 mEq/L (20-26); Blood Gas FiO2 40 %
[2017-01-18] MEDS: Budesonide/Formoterol 160/4.5 MDI IH SCH ×2 (07:28→20:29)
[2017-01-18] MEDS: Isosorbide MONOnitrate (24 HR) 60 MG TAB.ER.24H PO SCH (07:41)
[2017-01-18] MEDS: predniSONE 20 MG TABLET PO SCH (07:41)
[2017-01-18] MEDS: diazePAM 5 MG TABLET PO SCH (07:41)
[2017-01-18] MEDS: Fenofibrate 54 MG TABLET PO SCH (07:41)
[2017-01-18] MEDS: Furosemide 40 MG TABLET PO SCH ×2 (07:41→17:58)
[2017-01-18] MEDS: Aspirin Enteric Coated 81 MG Tablet PO SCH (07:41)
[2017-01-18] MEDS: ZETIA 10 MG PO SCH (07:42)
[2017-01-18] MEDS: Ranolazine 500 MG TAB.ER.12H PO SCH ×2 (07:42→21:14)
[2017-01-18] MEDS: LEDIPASVIR PO SCH (07:43)
[2017-01-18] MEDS: SOFOSBUVIR PO SCH (07:43)
--- NOTE | 2017-01-18 09:03 | Internal Med Progress Note ---
Date of Encounter: 01/18/17 Time of Encounter: 09:00 - Assessment and plan (1) Acute and chronic respiratory failure with hypoxia Current Visit: Yes Status: Acute Assessment and plan: improving slowly Currently requiring 4 lit o2 - which seems to be his new baseline Use BiPAP PRN during day time and Continuous at bed time Reviewed his ABG this morning Pt does need BiPAP to go home Cont Dolores Started tapering his steroids..switched to PO steroids Pt does have slightly altered mental status this morning - mostly due to Valium he received this morning will check on him in a couple of hours, if no improvement will obtain a CT of Head Talked to the pt's daughter at bed side and explained to her current care (2) Pneumonia Current Visit: No Status: Acute Assessment and plan: Reviewed CXR - showing patchy infiltrates RML, RLL mostly bacterial Cont him on empirical abx with Cefepime # 3/7 f/u on sputum cx his blood cx 1/2 positive for G+ve rods due to contamination Qualifiers: Pneumonia type: due to unspecified organism Laterality: right Lung location: lower lobe of lung Qualified Code(s): J18.1 - Lobar pneumonia, unspecified organism (3) COPD (chronic obstructive pulmonary disease) Current Visit: Yes Status: Chronic Assessment and plan: He does have severe COPD exacerbation - with end stage lung disease it does look like he does not have much active lung tissue left started tapering steroids Cont Dolores Will use BiPAP PRN during day time and continuous at bed time Qualifiers: COPD type: emphysema Emphysema type: panlobular Qualified Code(s): J43.1 - Panlobular emphysema (4) Idioventricular rhythm Current Visit: Yes Status: Acute Assessment and plan: EKG up on admission and on monitor he does have slow ventricular response / slow VT AICD got interrogated y/d - normal functioning dual chamber AICD Card started him on Mexiletine 150mg q8hr (5) Acute on chronic systolic (congestive) heart failure Current Visit: Yes Status: Acute Assessment and plan: had -590 negative fluid balance y/d Cont PO Lasix for now resumed all other home meds (6) Pulmonary fibrosis, unspecified Current Visit: Yes Status: Acute (7) CAD (coronary artery disease) Current Visit: Yes Status: Acute Assessment and plan: s/p CABG and stents cont ASA, Plavix, Statin and B jazmín Qualifiers: Coronary Disease-Associated Artery/Lesion type: bypass graft [place] vs. transplanted heart: [place] heart Associated angina: without angina Qualified Code(s): I25.810 - Atherosclerosis of coronary artery bypass graft(s) without angina pectoris (8) Anxiety Current Visit: Yes Status: Acute Assessment and plan: He does take Valium 5mg Q6hr almost scheduled at home His current tremors could be due to Benzo withdrawl changed his Valium to Q8hr scheduled (9) DVT prophylaxis Current Visit: Yes Status: Acute Assessment and plan: on SQ heparin - Subjective Interval history: Mr. West is a 66 year old male with PMHx significant for severe CAD. He is s/ p CABG on 2 separate occasions. The most recent CABG was in 2002. He has also had stents placed after his most recent CABG. additionally he has a history of COPD and emphysema and is O2 dependant (2L) was preseted to out ER on 01/10/17 with worsening SOB and hypoxia. Pt was admitted here for acute on chronic hypoxic respiratory failure with COPD exacerbation and CHF exacerbation. Today pt is alert, awake, O x3. However he looks little confused and disoriented this morning. Still c/p moderate SOB and MEYER. Denied any CP. No fever. Currently he is on 4 lit O2 at resting. - Constitutional Vitals: Temp Pulse Resp BP Pulse Ox 97.5 F L 90 18 116/87 98 01/18/17 07:35 01/18/17 07:35 01/18/17 07:35 01/18/17 07:35 01/18/17 07:35 General appearance: Present: cooperative, mild distress, A&O X 3, pleasant, answers questions appropriately - Head Head exam: Present: atraumatic, normal inspection - Respiratory Respiratory exam: Present: decreased breath sounds, respiratory distress (mild) , wheezes. Absent: rales, rhonchi - Cardiovascular Cardiovascular exam: Present: RRR, +S1, +S2. Absent: systolic murmur - GI/Abdominal GI/Abdominal exam: Present: soft. Absent: rebound, rigid, tenderness - Extremities Exam Extremities exam: Present: pedal edema (trace). Absent: calf tenderness, tenderness - Neurological Exam Neurological exam: Present: alert, altered (slightly altered), oriented X3 - Psychiatric Psychiatric exam: Present: depressed Internal Medicine: Result - Labs CBC & Chem 7: 01/17/17 01:21 01/17/17 01:21 - ABG Interpretation ABG results: ABG ABG pH 7.50 pH Units (7.32-7.45) H 01/18/17 06:20 ABG pCO2 44 mmHg (35-45) 01/18/17 06:20 ABG pO2 67 mmHg (85-104) L 01/18/17 06:20 ABG O2 Saturation 95 % (95-98) 01/18/17 06:20 PT/INR, D-dimer PT 16.3 Seconds (9.4-12.1) H 01/10/17 14:34 Consult Discharge Plan - Plan Referrals: Jani Slaughter MD [Primary Care Provider] - Mary Lala CNP [Advanced Practice Nurse] - 01/21/17 1:45 pm
[2017-01-18] MEDS ORDERED: diazePAM 5 MG TABLET PO PRN (09:07)
[2017-01-18 09:10] LABS: Basophils % 0.3 %; Eosinophils % 0.1 %; Hematocrit 45.5 % (37.5-50.1); Hemoglobin 15.2 g/dL (12.9-16.9); Immature Granulocytes % 1.2 % (0-4); Lymphocytes # 1.1 K/mcL (0.6-4.6); Lymphocytes % 8.1 %; Mean Corpuscular HGB Conc 33.4 g/dL (31.6-35.5); Mean Corpuscular Hemoglobin 34.2 pg (28.0-33.3); Mean Corpuscular Volume 102.5 fL (83.0-100.0); Mean Platelet Volume 10.5 fL (9.4-12.4); Monocytes # 0.5 K/mcL (0.0-1.3); Monocytes % 3.8 %; Neutrophils # 11.4 K/mcL (1.6-8.9); Nucleated Red Blood Cells 0.2 /100 WBC (0); Platelet Count 178 K/mcL (140-400); Red Blood Count 4.44 M/mcL (4.19-5.50); Red Cell Distribution Width 13.3 % (11.5-14.5); Segmented Neutrophils % 86.5 %
[2017-01-18 09:22] LABS: BUN/Creatinine Ratio 21 (6-26); Blood Urea Nitrogen 24 mg/dL (8-26); Calcium 9.1 mg/dL (8.6-10.8); Carbon Dioxide 31 mEq/L (19-29); Chloride 95 mEq/L (98-109); Glucose 157 mg/dL (70-99); Osmolality,Calculated 285 (280-300); Potassium 4.6 mEq/L (3.5-4.5); Sodium 134 mEq/L (136-145); eGFR For African Americans > 60 (> 60); eGFR For Non-African Americans > 60 (> 60)
--- NOTE | 2017-01-18 11:55 | Electrophysiology Consult Note ---
Date of Encounter: 01/18/17 Time of Encounter: 11:54 Assessment and Plan (1) Idioventricular rhythm Current Visit: Yes Status: Acute ECG/telemetry reviewed with Dr. Darinel Marina. Rhythm is concerning for slow VT and recommended starting mexiletine (did not start amio d/t pulmonary fibrosis) . Mexiletine 150 mg Q8H started on 01/16/17; s/p 6 doses. On Coreg 25mg BID. Baseline ECG 01/16/17: HR 99 QRS 171 QT/QTc 421/478 ms. Continues to have idioventicular rhythm noted per telemetry review, rate 99- 109. Occasional episodes of SR. Will continue to monitor telemetry and HR. Device check completed: normal functioning dual chamber ICD; atrial/ventricular sensing at 104 bpm, good battery life, all device measurements are appropriate. [VT range >171 bpm, VT monitoring >154 bpm at least 16 beats]. Given his ICMP and concern of slow VT, recommend ischemic evaluation with [facility]. Last ischemic eval was LHC approximately 6 years ago at [facility]. Received PCI at that time and reportedly had another blockage left to fix. R/B/A discussed. Pt agrees. LHC today. If no intervention is warranted on LHC and idioventricular/slow VT persists, will need to switch to PO Amiodarone, low dose. (2) CAD (coronary artery disease) Current Visit: Yes Status: Acute Hx of CAD s/p CABG on two separate occasions and s/p PCI, most recent PCI 6 years ago. continue ASA, plavix, nitrates, ranexa, betablocker, and statin. Also on fenofibrate and Zetia. Qualifiers: Coronary Disease-Associated Artery/Lesion type: bypass graft [place] vs. transplanted heart: [place] heart Associated angina: without angina Qualified Code(s): I25.810 - Atherosclerosis of coronary artery bypass graft(s) without angina pectoris (3) Presence of cardiac defibrillator Current Visit: Yes Status: Chronic ICD for ICMP. Interrogated and reviewed with Dr. Darinel Marina, NSVT. Discussion w patient/family: The assessment and plan as outlined above was discussed with the patient and/or family members who expressed understanding and agreement. All questions were answered. Thank you for involving us in the care of your patient. Please call with any questions. I will discuss all the above with Dr. Darinel Marina and make changes as necessary. History of Present Illness Consult date: 01/18/17 Requesting physician: Ivy Lou Consult reason: idioventricular rhythm, mexilitine Chief complaint: dyspnea History of present illness: Mr. West is a 66 year old male with pmh significant for severe CAD. He is s/p CABG on 2 separate occasions. The most recent CABG was in 2002. He has also had stents placed after his most recent CABG. additionally he has a history of ICMP s/p ICD, COPD and emphysema and is O2 dependant (2L). He presented with progressive shortness of breath over the past 6 weeks. He states that he has gained nearly 14 pounds in this time frame. He denies orthopnea and states that his O2 saturation actually was improving with lying flat at home. He admits to lower extremity edema. He admits to some chest discomfort 1 week prior to admission that occurred after he ate a large meal. He describes this as epigastic location and describes it a dyspepsia. This resolved after he took an antacid. He denies any fever, chills, or night sweats. He states that he occasionally will have black spots in his sputum. He denies any shocks from his defibrillator. 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 He has never taken amiodarone. He has no further complaints or concerns at this time. Since admission he was found to be in an idioventricular rhythm the majority of the time, intermittently sinus rhythm. The idioventricular rhythm is concerning for slow VT. Device interrogated and reviewed, NSVT episodes noted. Pt was started on Mexilitine 150mg F4gaqon evening of 01/16 and has received 6 doses. EP consulted for further recommendations. Prior CV testing: Echo 01/11: LVEF 35%. Mildly dilated left ventricle. Global and segmental left ventricular systolic dysfunction. Indeterminate diastolic function. Normal right ventriclular size with mild hypokinesis. Mild mitral regurgitation. No evidence of pulmonary hypertension. A device lead was visualized in the right atrium and right ventricle. Stress test 03/28/15 no evidence of reversible ischemia. Past Med Surg Social Fam HX - Past Medical History Medical history: cardiomyopathy, CHF, COPD, coronary artery disease, hyperlipidemia, hypertension, other (Hepatitis C) Psychiatric history: anxiety - Past Surgical History Surgical History: angioplasty/stent, coronary bypass (CABG), herniorrhaphy, pacemaker/AICD - Social History Smoking Status: Former smoker Smokeless Tobacco Status: No Alcohol use: rarely Drug use: none - Family History Mother History Unknown: Yes Adopted: Yes Medications and Allergies Aspirin Enteric Coated [Aspirin EC] 162 mg PO DAILY 05/16/15 [History] Atorvastatin [Lipitor] 40 mg PO DAILY 05/16/15 [History] Carvedilol [Coreg] 25 mg PO BID 05/16/15 [History] Clopidogrel [Plavix] 75 mg PO DAILY 05/16/15 [History] Fenofibrate [Lofibra] 145 mg PO DAILY 05/16/15 [History] Isosorbide MONOnitrate (24 HR) [Imdur] 120 mg PO DAILY 05/16/15 [History] Losartan [Cozaar] 25 mg PO DAILY 05/16/15 [History] Ranolazine [Ranexa] 1,000 mg PO BID 05/16/15 [History] Budesonide/Formoterol 160/4.5 [Symbicort] 2 puff IH BIDR #1 inhaler 05/21/15 [Rx ] Promethazine/Codeine [Phenergan/Codeine] 5 ml PO Q4HR PRN #100 udc 05/21/15 [Rx] Furosemide [Lasix] 60 mg PO BID 01/11/17 [History] Allergies No Known Allergies Allergy (Verified 01/11/17 09:57) All Systems Review: A 10-system review of systems was performed and is negative for pertinent findings except as documented above in the HPI. - Cardiovascular Cardiovascular: as per HPI, dyspnea at rest, dyspnea on exertion, leg edema Physical Examination Vital Signs, Last 4 Hours Temp Pulse Resp BP Pulse Ox 01/18/17 11:25 18 90 01/18/17 11:19 97.6 F 75 18 106/66 92 General: Conversant, No Apparent Distress HEENT: Atraumatic, Normocephaly, Mucus Membranes Moist Neck: No JVD, Normal carotid pulses Cardiac: Reg Rate and Rhythm, Normal S1 and S2, No Murmur Lungs: Normal Breath Sounds, No Wheeze, Rales, Rhonchi Neuro: Alert and responsive, No focal deficits noted Abdomen: Soft, Non-Tender Skin: No rashes noted on visualized skin Musculoskeletal: No Chest Wall Tenderness Extremities: No Clubbing, No Cyanosis, No Edema, Normal Pulses Results 01/18/17 09:02 01/18/17 09:02 Lab Results 01/18/17 01/18/17 09:02 09:02 WBC 13.2 H Hgb 15.2 Hct 45.5 Plt Count 178 Sodium 134 L Potassium 4.6 H Chloride 95 L Carbon Dioxide 31 H BUN 24 Creatinine 1.16 Glucose 157 H Calcium 9.1 Short CBC 01/18/17 Range/Units 09:02 WBC 13.2 H (4.3-11.1) K/mcL Hgb 15.2 (12.9-16.9) g/dL Hct 45.5 (37.5-50.1) % Plt Count 178 (140-400) K/mcL Neutrophils # 11.4 H (1.6-8.9) K/mcL BMP 01/18/17 Range/Units 09:02 Sodium 134 L (136-145) mEq/L Potassium 4.6 H (3.5-4.5) mEq/L Chloride 95 L (98-109) mEq/L Carbon Dioxide 31 H (19-29) mEq/L BUN 24 (8-26) mg/dL Creatinine 1.16 (0.72-1.25) mg/dL Glucose 157 H (70-99) mg/dL Calcium 9.1 (8.6-10.8) mg/dL Active Medications Acetaminophen (Tylenol) 650 mg PO Q6HR PRN PRN Reason: Pain Stop: 07/14/17 01:00 Last Admin: 01/12/17 01:24 Dose: 650 mg Albuterol/Ipratropium (Duoneb) 3 ml IH [id number] [facility] PRN Reason: Protocol Stop: 07/14/17 20:01 Last Admin: 01/18/17 11:24 Dose: 3 ml Aspirin (Aspirin Ec) 81 mg PO DAILY J[facility]INO Stop: 07/18/17 09:01 Last Admin: 01/18/17 07:41 Dose: 81 mg Atorvastatin Calcium (Lipitor) 40 mg PO DAILY [facility] Stop: 07/13/17 09:01 Last Admin: 01/18/17 07:41 Dose: 40 mg Budesonide/Formoterol Fumarate (Symbicort) 2 puff IH BIDR [facility] PRN Reason: Protocol Stop: 07/12/17 22:01 Last Admin: 01/18/17 07:28 Dose: Not Given Carvedilol (Coreg) 25 mg PO BID J[facility]ENTINO PRN Reason: Protocol Stop: 07/12/17 21:01 Last Admin: 01/18/17 07:42 Dose: 25 mg Clopidogrel Bisulfate (Plavix) 75 mg PO DAILY [facility] Stop: 07/13/17 09:01 Last Admin: 01/18/17 07:41 Dose: 75 mg Diazepam (Valium) 5 mg PO TID PRN PRN Reason: Anxiety Stop: 07/19/17 09:01 Fenofibrate (Tricor) 162 mg PO DAILY [facility] PRN Reason: Protocol Stop: 07/12/17 20:46 Last Admin: 01/18/17 07:41 Dose: 162 mg Furosemide (Lasix) 40 mg PO BIDDIURETIC [facility] Stop: 07/19/17 17:01 Last Admin: 01/18/17 07:41 Dose: 40 mg Guaifenesin (Mucinex) 1,200 mg PO BID [facility] Stop: 07/15/17 20:14 Last Admin: 01/18/17 07:41 Dose: 1,200 mg Heparin Sodium (Porcine) (Heparin) 5,000 unit SQ Q8HCO [facility] Stop: 07/12/17 22:01 Last Admin: 01/18/17 06:06 Dose: 5,000 unit Cefepime HCl 1,000 mg/ (Dextrose) 100 mls @ 200 mls/hr IVPB Q12HR [facility] Stop: 07/18/17 18:01 Last Admin: 01/18/17 06:06 Dose: 100 mls/hr Isosorbide Mononitrate (Imdur) 120 mg PO DAILY [facility] Stop: 07/13/17 09:01 Last Admin: 01/18/17 07:41 Dose: 120 mg Mexiletine HCl (Mexitil) 150 mg PO Q8HR [facility] Stop: 07/18/17 16:01 Last Admin: 01/18/17 07:42 Dose: 150 mg Naloxone HCl (Narcan) 0.4 mg IVP Q2MIN PRN PRN Reason: Opioid Reversal Stop: 07/12/17 19:55 Omeprazole (Prilosec) 20 mg PO DAILY@0630 [facility] PRN Reason: Protocol Stop: 07/13/17 06:31 Last Admin: 01/18/17 06:06 Dose: 20 mg Oxycodone HCl (Roxicodone) 30 mg PO Q6HR [facility] Stop: 07/14/17 18:01 Last Admin: 01/18/17 11:17 Dose: Not Given Pharmacy Profile Note (Patient Taking Own Medication) 1 each PO DAILY [facility] Stop: 07/13/17 09:01 Last Admin: 01/18/17 07:43 Dose: Not Given Pharmacy Profile Note (Patient Taking Own Medication) 0 each PO DAILY [facility] Stop: 07/14/17 09:01 Last Admin: 01/18/17 07:42 Dose: 1 each Prednisone (Prednisone) 40 mg PO DAILY [facility] Stop: 07/19/17 09:01 Last Admin: 01/18/17 07:41 Dose: 40 mg Ranolazine (Ranexa) 1,000 mg PO BID [facility] Stop: 07/12/17 21:01 Last Admin: 01/18/17 07:42 Dose: 1,000 mg - Imaging and Cardiology Stress Test: report reviewed Echo: report reviewed - EKG Interpretation EKG results cardiology: other (12 hr tele AVG HR 91, idioventricular rhythm and sinus intermittently) Consult Discharge Plan - Plan Referrals: Jani Slaughter MD [Primary Care Provider] - Mary Lala CNP [Advanced Practice Nurse] - 01/25/17 1:00 pm
--- NOTE | 2017-01-18 13:02 | Pulmonology Progress Note ---
Date of Encounter: 01/18/17 Time of Encounter: 10:35 Assessment and Plan (1) COPD (chronic obstructive pulmonary disease) Current Visit: Yes Status: Chronic Patient is already established in the clinic and he needs follow-up as outpatient as is scheduled. Qualifiers: COPD type: emphysema Emphysema type: panlobular Qualified Code(s): J43.1 - Panlobular emphysema (2) Acute and chronic respiratory failure with hypoxia Current Visit: Yes Status: Acute Patient is feeling better and noninvasive ventilation will be helpful. As outpatient may consider a sleep study when he comes for follow-up as outpatient. Please call for any questions. Subjective Principal diagnosis: Respiratory Failure Interval history: Patient is feeling better today and qualified for noninvasive ventilation Objective PUL Vital signs: Last Vital Signs Temp 97.6 F 01/18/17 11:19 Pulse 75 01/18/17 11:19 Resp 18 01/18/17 11:25 BP 106/66 01/18/17 11:19 Pulse Ox 90 01/18/17 11:25 General appearance: no acute distress Eyes: nonicteric Neck: supple, no lymphadenopathy Effort: normal Auscultation: bilateral: diminished breath sounds Percussion: bilateral: not dull Cardiovascular: regular rate and rhythm Gastrointestinal: normoactive bowel sounds, non-distended normal mental status, non-focal exam mood appropriate Results - Laboratory Findings CBC and BMP: 01/18/17 09:02 01/18/17 09:02 ABG ABG pH 7.50 pH Units (7.32-7.45) H 01/18/17 06:20 ABG pCO2 44 mmHg (35-45) 01/18/17 06:20 ABG pO2 67 mmHg (85-104) L 01/18/17 06:20 ABG O2 Saturation 95 % (95-98) 01/18/17 06:20 PT/INR, D-dimer PT 16.3 Seconds (9.4-12.1) H 01/10/17 14:34 Abnormal lab findings: Abnormal lab results WBC 13.2 K/mcL (4.3-11.1) H 01/18/17 09:02 MCV 102.5 fL (83.0-100.0) H 01/18/17 09:02 MCH 34.2 pg (28.0-33.3) H 01/18/17 09:02 Neutrophils # 11.4 K/mcL (1.6-8.9) H 01/18/17 09:02 Nucleated RBCs/100 WBC 0.2 /100 WBC (0) H 01/18/17 09:02 PT 16.3 Seconds (9.4-12.1) H 01/10/17 14:34 ABG pH 7.50 pH Units (7.32-7.45) H 01/18/17 06:20 ABG pO2 67 mmHg (85-104) L 01/18/17 06:20 ABG HCO3 34.3 mEQ/L (21-27) H 01/18/17 06:20 ABG Total CO2 35.7 mEq/L (20-26) H 01/18/17 06:20 ABG Base Excess 9.8 mEq/L (-2.0 to 3.0) H 01/18/17 06:20 Sodium 134 mEq/L (136-145) L 01/18/17 09:02 Potassium 4.6 mEq/L (3.5-4.5) H 01/18/17 09:02 Chloride 95 mEq/L (98-109) L 01/18/17 09:02 Carbon Dioxide 31 mEq/L (19-29) H 01/18/17 09:02 Glucose 157 mg/dL (70-99) H 01/18/17 09:02 Total Bilirubin 3.7 mg/dL (0.2-1.2) H 01/10/17 14:34 Indirect Bilirubin 3.2 mg/dL (0.0-1.2) H 01/10/17 14:34 B-Natriuretic Peptide 173 pg/mL (0-100) H 01/12/17 14:02 Globulin 3.8 g/dL (2.4-3.5) H 01/10/17 14:34 Albumin/Globulin Ratio 1.0 (1.1-2.2) L 01/10/17 14:34 - Diagnostic Findings Chest x-ray: report reviewed, image reviewed - Clinical Findings Intake & Output: Intake & Output 01/17/17 01/18/17 01/18/17 23:59 07:59 15:59 Intake Total 460 / 460 120 / 120 240 / 240 Output Total 780 / 780 300 / 300 Balance -320 / -320 -180 / -180 240 / 240 Weight 88.9 kg Consult Discharge Plan - Plan Referrals: Jani Slaughter MD [Primary Care Provider] - Mary Lala CNP [Advanced Practice Nurse] - 01/25/17 1:00 pm
--- NOTE | 2017-01-18 14:27 | Pre-Sedation Evaluation ---
Pre-sedation evaluation - Pre-sedation checklist Date of procedure: 01/18/17 Procedure: [facility] Recent Vitals: Last Vital Signs Temp 97.6 F 01/18/17 11:19 Pulse 75 01/18/17 11:19 Resp 18 01/18/17 11:25 BP 106/66 01/18/17 11:19 Pulse Ox 90 01/18/17 11:25 H&P (including ROS) documented in medical record: Yes Previous reaction to sedatives/anesthetics: No Dietary Status: NPO after Midnight Airway Assessment: Patient can open mouth completely, TMJ function normal ASA Classification *see protocol: CLASS II-Mild systemic disease Plan of Care: Pt appropriate candidate for procedure/moderate/conscious sedation , Risks/benefits of procedure/sedation discussed w/ patient/family
--- NOTE | 2017-01-18 14:38 | Electrocardiograph Report ---
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
[2017-01-18] MEDS ORDERED: *HR* OxyCODONE Immed Rel 15 MG TABLET PO PRN (14:45)
[2017-01-18] MEDS ORDERED: *HR* Heparin 10,000 UNIT/10 ML VIAL ONE (16:03)
[2017-01-18] MEDS ORDERED: 0.9 % Sodium Chloride 1,000 ML ONE ×2 (16:03→16:23)
[2017-01-18] MEDS ORDERED: Heparin 1,000 UNITS/500 mL NS 500 ML ONE (16:03)
[2017-01-18] MEDS ORDERED: Nitroglycerin 1,000 MCG/10 ML VIAL IV ONE (16:04)
[2017-01-18] MEDS ORDERED: *HR* FentaNYL (PF) 100 MCG/2 ML VIAL ONE (16:22)
[2017-01-18] MEDS ORDERED: *HR* Midazolam HCl 2 MG/2 ML VIAL ONE ×2 (16:22→16:45)
--- NOTE | 2017-01-18 17:33 | Invasive Diagnostic Lab Proc ---
Name: Eric West Date of Study: 01/18/2017 Date: 1950 Ht: 66.1in Medical Record#: [id number] Age: 66 Wt: 196.21lb Gender: Male BSA: 1.99 Order #: [id number] BMI: 31.53 Physicians Procedure Physician: Brian Ferraro MD, [facility] Referring MD: Referring MD: Staff Name Position Time In Lawrence Jerry RN Bank Secrecy Act Officer 04:21 PM Violeta Rubin RN Bank Secrecy Act Officer 04:21 PM Sindy Pollock RN Monitor 04:22 PM Negra Leavitt RN Monitor 04:22 PM Destiny Han RT (R) 04:22 PM Destiny Han RT (R) Scrub 04:23 PM Indications Indication Coronary Artery Disease VT Procedures Performed Procedure L HRT ART/GRFT ANGIO Pre-Procedure Checklist Informed consent is complete signed and on chart. H&P is on chart. ID band is on and ID verified with patient. Patient NPO for procedure The procedure was described for the patient and questions were answered. Blood Pressure: 106/66 ECG is on chart. Plan of Care Patient will tolerate the procedure without complications. Adequate level of comfort will be maintained. Hemodynamics will remain stable Patient will recover from procedure without complications. Respiratory function will be maintained. Cardiac rhythm will remain stable. Patient temperature will be maintained. Patient and/or family have verbalized understanding of the procedure. Patient Education Chief Complaint/Reason for Test: Cardiac Cath Developmental Category: Geriatric (65+ years) Developmentally Appropriate for Age: Yes Learning Barriers: None Education Needs: Procedure Education Method: Verbal Information Taught: Cardiac Cath Educational Evaluation: Able to repeat information Intravenous Access Time IV Size Location DC'd Fluid/Drip Rate Units RN 0.9NaCl 04:24 PM Started with 20g 1 1/4" Rt Arm Lawrence Jerry RN Allergies Codeine Vital Signs Time BP (mmHg) HR (bpm) O2 Sat. RR (bpm) LOC 106 / 66 75 % 04:25 PM / % 5 = Fully awake and oriented or at pre-proc level 04:25 PM / % 5 = Fully awake and oriented or at pre-proc level 04:40 PM / % 5 = Fully awake and oriented or at pre-proc level 04:55 PM / % 5 = Fully awake and oriented or at pre-proc level 04:30 PM 123 / 83 89 94 % 20 04:35 PM 125 / 90 90 91 % 22 04:40 PM 118 / 90 87 91 % 11 04:45 PM 119 / 82 88 91 % 21 04:50 PM 120 / 83 87 90 % 21 04:55 PM 111 / 79 89 88 % 18 05:00 PM 116 / 80 87 87 % 15 05:05 PM 115 / 79 88 87 % 16 05:10 PM / % 5 = Fully awake and oriented or at pre-proc level Procedural Medications Time Medication Dose Units Method Given By 04:25 PM Oxygen 4 L/min nasal cannula Lawrence Jerry RN 04:37 PM Versed 1 mg Intravenous Lawrence Jerry RN 04:46 PM Lidocaine 2% 20 ml Subcutaneous Brian Ferraro MD, FACC 04:47 PM Versed 2 mg Intravenous Lawrence Jerry RN 04:47 PM Fentanyl 50 mcg Intravenous Lawrence Jerry RN 04:53 PM Oxygen 5 L/min nasal cannula Violeta Rubin RN ASA Classification: CLASS II- Mild systemic disease (i.e. well-controlled diabetes, hypertension, asthma, cigarette smoking) Nohemy Score Preprocedure Postprocedure Activity 2- Moves 4 extremities sustained head lift Activity 2- Moves 4 extremities sustained head lift Circulation 2- SBP +/= 20 points of pre-anesthetic level Circulation 2- SBP +/= 20 points of pre-anesthetic level Consciousness 2- Awake and alert oriented x 3 Consciousness 2- Awake and alert oriented x 3 O2 Saturation 2- Able to maintain O2 satruation of 92% on room air O2 Saturation 2- Able to maintain O2 satruation of 92% on room air Respiratory 2- Able to deep breathe and cough well Respiratory 2- Able to deep breathe and cough well Total Score 10 Total Score 10 Contrast Agent: Isovue Diagnostic Contrast: 95 ml Total Contrast: 95 ml Fluoro Dose: 348 mGy Procedure Log Time Note Enter By 04:15 PM CathStat 04:21 PM 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 to dairy and food laboratory assistant 2 at 16:21 uzair 04:21 PM Lawrence Jerry RN Position: Bank Secrecy Act Officer Time in: 16:21 uzair 04:22 PM Violeta Rubin RN Position: Bank Secrecy Act Officer Time in: 16:21 uzair 04:22 PM Sindy Pollock RN Position: Monitor Time in: 16:22 uzair 04:22 PM Negra Leavitt RN Position: Monitor Time in: 16:22 uzair 04:23 PM Destiny Han RT (R) Position: Scrub Time in: 16:23 [email or web address] 04:24 PM Patient charges- Angio tray pack, Navilyst 3mm J, Pulse Oximetry and ACIST tubing and transducer [email or web address] 04:24 PM Case Delayed No [email or web address] 04:24 PM Hair removed from procedure site in holding area using clippers. Right groin prepped with Chloraprep by Lawrence Jerry RN, safety strap applied then patient was draped. Skin intact. tsmm 04:24 PM Physican paged/called 16:24. [email or web address] 04:24 PM Physican responded and notified patient is ready 16:24 [email or web address] 04:24 PM Physician arrived 16:24 [email or web address] 04:24 PM ASA Class CLASS II- Mild systemic disease (i.e. well-controlled diabetes, hypertension, asthma, cigarette smoking) tsmm:24 PM Meet and greet completed [facility] 04:24 PM Sign in performed according to hospital policy. 04:24 PM Procedure start 16:24 [email or web address] 04:25 PM Time: 16:25 Patient comfortable and pain free: Yes mm 04:25 PM Time: 16:25LOC: 5 = Fully awake and oriented or at pre-proc level tsmm 04:25 PM Time: 16:25 Oxygen on at 4 L/min per nasal cannula by Lawrence Jerry RN 04:28 PM IV Supplies used: J loop Angio Cath. [email or web address] 04:29 PM Vitals capture started with the following parameters, Patient=Adult, Interval=5 min, Initial Aekyqpcp=541 mmHg, Deflation Rate=5 mmHg, Cuff placed on Left Arm 04:30 PM HR=89 bpm, OWCN=997/83 mmhg, SpO2=94.0 %, Resp=20 B/min 04:32 PM Recorded ECG: HR=92 Condition=Condition 1 04:35 PM HR=90 bpm, BARL=830/90 mmhg, SpO2=91.0 %, Resp=22 B/min, Comment=SR 04:37 PM Time: 16:37 Versed 1 mg Intravenous Given by Lawrence Jerry RN 04:40 PM Time: 16:25LOC: 5 = Fully awake and oriented or at pre-proc level [email or web address] 04:40 PM Time: 16:25 Patient comfortable and pain free: Yes [email or web address] 04:40 PM HR=87 bpm, FQWS=445/90 mmhg, SpO2=91.0 %, Resp=11 B/min, Comment=SR 04:45 PM HR=88 bpm, FVDF=226/82 mmhg, SpO2=91.0 %, Resp=21 B/min, Comment=SR 04:46 PM Time: 16:46 20 ml Lidocaine 2% to right groin Subcutaneous Given by Brian Ferraro MD, [facility] [email or web address] 04:47 PM Time: 16:47 Versed 2 mg Intravenous Given by Lawrence Jerry RN 04:47 PM Time: 16:47 Fentanyl 50 mcg Intravenous Given by Lawrence Jerry RN 04:47 PM Time out performed according to hospital policy mm 04:48 PM Access obtained by percutaneous puncture. 6Fr 10cm Terumo [place] sheath placed in right Femoral artery. [id number] oumm 04:48 PM 5Fr FL 4 catheter inserted over the wire [facility] mm 04:48 PM Wire removed mm 04:48 PM Recorded Pressure: Ao, HR=89, Condition=Condition 1 (Aorta) Ao 106/89/97 04:49 PM LCA angiography performed in multiple views. mm 04:50 PM HR=87 bpm, QMHA=005/83 mmhg, SpO2=90.0 %, Resp=21 B/min, Comment=SR 04:50 PM Catheter removed mm 04:51 PM 5Fr FR 4 catheter inserted over the wire [facility] mmtanya 04:51 PM Recorded Pressure: Ao, HR=91, Condition=Condition 1 (Aorta) Ao 111/95/103 04:51 PM RCA angiography performed in multiple views. 04:53 PM Time: 16:53 Oxygen on at 5 L/min per nasal cannula by Violeta Rubin RN 04:54 PM Catheter removed [email or web address] 04:54 PM 0.035 260cm Navilyst 3mmJ wire [id number] oumm 04:55 PM 5Fr IM catheter inserted over the wire [id number] tsoummers 04:55 PM Time: 16:40 Patient comfortable and pain free: Yes [email or web address] 04:55 PM HR=89 bpm, PEDL=661/79 mmhg, SpO2=88.0 %, Resp=18 B/min, Comment=SR 04:55 PM Time: 16:40LOC: 5 = Fully awake and oriented or at pre-proc level [email or web address] 04:56 PM Recorded Pressure: Ao, HR=90, Condition=Condition 1 (Aorta) Ao 100/80/89 04:56 PM Left NAIMA to the LAD angio performed in multiple views. [email or web address] 04:56 PM Catheter removed tsoummers 04:56 PM 5Fr MPA catheter inserted over the wire [id number] tsoummers 04:57 PM Pressure channel 1 zero failed. 04:57 PM Wire removed tsoummers 04:57 PM Catheter selectively placed in left ventricle [email or web address] 04:57 PM Pressure channel 1 zero failed. 04:57 PM Pressure channel 1 zeroed. 04:57 PM Recorded Pressure: LV, HR=88, Condition=Condition 1 (Left Ventricle) LV 105/13/23 04:57 PM Bolus angiogram of left Ventricle complete: 12 ml/sec for a total of 30 mls tsoummers 04:58 PM Recorded Pressure: LV, Ao, HR=88, Condition=Condition 1 (Left Ventricle) LV 105/14/24, (Aorta) Ao 100/65/80 04:59 PM Recorded Pressure: Ao, HR=87, Condition=Condition 1 (Aorta) Ao 94/79/87 04:59 PM SVG to the RPDA angio performed in multiple views. [email or web address] 04:59 PM Catheter removed tsoummers 05:00 PM HR=87 bpm, KEPK=793/80 mmhg, SpO2=87.0 %, Resp=15 B/min 05:01 PM Procedure completed at 17:01 [email or web address] 05:02 PM Sign out completed: Radiation Dose 348 mGy Fluoro Time: 3.5 Isovue 370 - 200ml contrast 95 ml given by Brian Ferraro MD, [facility]. Complications: NoneCardiac Rehab Consult needed: NoConfirmed administered medications: Yes tsoummers 05:02 PM Isovue 370 - 200ml,1 Bottle(s) used. [email or web address] 05:02 PM Post ECG NSR oumm 05:03 PM Post [facility] 116[facility] 05:03 PM Information taught Cardiac Cath [facility] 05:03 PM Education needs Procedure, Plan of Care, Disease Process, and Responsibilities of Patient in Care mm 05:03 PM Learning barriers :None [facility] 05:03 PM Education Methods Verbal [facility] 05:03 PM Education evaluation Able to repeat information [facility] 05:03 PM Site status No bleeding/hematoma - Rt Groin as reported by Destiny Han RT (R) at 17:03 [email or web address] 05:03 PM 17:03 Post Pulses Bilateral DP 2+ [email or web address] 05:04 PM 17:03 Post Pulses Bilateral PT 1+ [email or web address] 05:04 PM Coronary Dominance: right 05:05 PM Lesion found in Mid RCA. Pre Stenosis: 40 Pre YARY Flow: 3: Complete and Brisk Flow/Perfusion [facility] 05:05 PM Lesion found in Distal RCA. Pre Stenosis: 40 Pre YARY Flow: 3: Complete and Brisk Flow/Perfusion [facility] 05:05 PM HR=88 bpm, OXQO=979/79 mmhg, SpO2=87.0 %, Resp=16 B/min, Comment=SR 05:06 PM Arterial sheath pulled using manual compression and for 15 minutes by Violeta Rubin RN franktanya 05:06 PM Lesion found in LMCA. Pre Stenosis: 60 Pre YARY Flow: 3: Complete and Brisk Flow/Perfusion [facility] 05:09 PM Lesion found in Proximal LAD. Pre Stenosis: 100 Pre YARY Flow: 0: No Flow/No perfusion [facility] 05:09 PM Lesion found in Proximal Circumflex. Pre Stenosis: 80 Pre YARY Flow: 3: Complete and [facility]isk [facility] 05:[facility] PM Left Main Coronary Artery with 60% stenosis [facility] 05:10 PM Proximal Left Anterior Descending Coronary Artery with 100% stenosis. [facility] 05:10 PM Time: 16:55LOC: 5 = Fully awake and oriented or at pre-proc level [email or web address] 05:10 PM Time: 16:55 Patient comfortable and pain free: Yes [facility] 05:10 PM Circumflex, Obtuse Marginal, Left Posterior Descending, and Left Posterolateral Coronary Arteries with 80 % stenosis. stephon 05:25 PM Time: 17:10 Patient comfortable and pain free: Yes stephon 05:25 PM Time: 17:10LOC: 5 = Fully awake and oriented or at [facility] PM Patient out of room: 17:26 stephon 05:26 PM Family placed in consult room. stephon Complications Complication None Hemodynamics Pressures Site Systolic/A Wave Diastolic/V Wave Mean AO 106 89 97 AO 111 95 103 AO 100 80 89 LV 105 13 23 LV 105 14 24 AO 100 65 80 AO 94 79 87 Post Procedure Information Blood Pressure: 116/80 mmHg Rhythm: NSR Post procedural instructions were given Closure Device Time Device Success/Fail 01/18/2017 5:06:00 PM Manual Compression Successful Site Checks Time Location Status Staff Sheath In? Note 05:03 PM Rt Groin No bleeding/hematoma Destiny Han RT (R) 05:22 PM Rt Groin No bleeding/ No Hematoma Violeta Rubin RN Pulses Time Site Pre-Procedure Post-Procedure Note Bilateral radial 2+ Bilateral PT 1+ Bilateral DP 2+ 5:03:00 PM Bilateral DP 2+ 5:03:00 PM Bilateral PT 1+ 01/18/2017 5:23:00 PM Bilateral DP 2+ 01/18/2017 5:23:00 PM Bilateral PT 1+ Updated by Negra Leavitt RN on 01/18/2017 5:26:44 PM electronically signed on 01/18/2017 5:27:37 PM with status of Final
[2017-01-19] MEDS: Ipratropium/Albuterol Neb 3 ML IH SCH ×5 (00:09→16:22)
[2017-01-19] MEDS: *HR* Heparin 5,000 UNIT/ML VIAL SQ SCH (06:11)
[2017-01-19] MEDS: Cefepime HCl 1,000 MG in D5% in Water (Mini-Bag+) 100 ML IVPB SCH (06:11)
[2017-01-19 07:17] LABS: Basophils # 0.1 K/mcL (0.0-0.2); Basophils % 0.7 %; Eosinophils % 0.1 %; Hematocrit 40.8 % (37.5-50.1); Immature Granulocytes % 2.2 % (0-4); Lymphocytes # 1.3 K/mcL (0.6-4.6); Lymphocytes % 12.1 %; Mean Corpuscular HGB Conc 34.3 g/dL (31.6-35.5); Mean Corpuscular Hemoglobin 33.9 pg (28.0-33.3); Mean Corpuscular Volume 98.8 fL (83.0-100.0); Mean Platelet Volume 11.3 fL (9.4-12.4); Monocytes % 9.1 %; Neutrophils # 7.9 K/mcL (1.6-8.9); Nucleated Red Blood Cells 0.2 /100 WBC (0); Platelet Count 181 K/mcL (140-400); Red Blood Count 4.13 M/mcL (4.19-5.50); Red Cell Distribution Width 13.3 % (11.5-14.5); Segmented Neutrophils % 75.8 %
[2017-01-19] MEDS: Furosemide 40 MG TABLET PO SCH (07:32)
[2017-01-19] MEDS: Aspirin Enteric Coated 81 MG Tablet PO SCH (07:32)
[2017-01-19] MEDS: Isosorbide MONOnitrate (24 HR) 60 MG TAB.ER.24H PO SCH (07:32)
[2017-01-19] MEDS: Ranolazine 500 MG TAB.ER.12H PO SCH (07:32)
[2017-01-19] MEDS: predniSONE 20 MG TABLET PO SCH (07:32)
[2017-01-19] MEDS: Fenofibrate 54 MG TABLET PO SCH (07:33)
[2017-01-19] MEDS: ZETIA 10 MG PO SCH (07:34)
[2017-01-19 07:38] LABS: BUN/Creatinine Ratio 23 (6-26); Blood Urea Nitrogen 25 mg/dL (8-26); Calcium 8.9 mg/dL (8.6-10.8); Carbon Dioxide 31 mEq/L (19-29); Chloride 96 mEq/L (98-109); Glucose 125 mg/dL (70-99); Osmolality,Calculated 282 (280-300); Potassium 4.2 mEq/L (3.5-4.5); Sodium 133 mEq/L (136-145); eGFR For African Americans > 60 (> 60); eGFR For Non-African Americans > 60 (> 60)
[2017-01-19] MEDS: Budesonide/Formoterol 160/4.5 MDI IH SCH (07:45)
[2017-01-19 08:32] LABS: Acinetobacter baumannii by PCR Not Detected (Not Detect); Candida albicans by PCR Not Detected (Not Detect); Candida glabrata by PCR Not Detected (Not Detect); Candida krusei by PCR Not Detected (Not Detect); Candida parapsilosis by PCR Not Detected (Not Detect); Candida tropicalis by PCR Not Detected (Not Detect); Enterococcus by PCR Not Detected (Not Detect); Escherichia coli by PCR Not Detected (Not Detect); Klebsiella oxytoca by PCR Not Detected (Not Detect); Klebsiella pneumoniae by PCR Not Detected (Not Detect); Pseudomonas aeruginosa by PCR Not Detected (Not Detect); Serratia marcescens by PCR Not Detected (Not Detect); Staphylococcus aureus by PCR Not Detected (Not Detect); Streptococcus agalactiae(B)PCR Not Detected (Not Detect); Streptococcus by PCR Not Detected (Not Detect); Streptococcus pneumoniae PCR Not Detected (Not Detect); Streptococcus pyogenes (A) PCR Not Detected (Not Detect); blaKPC Carbapenem-Resist Gene Not Detected (Not Detect); mecA Methicillin-Resist Gene Not Detected (Not Detect); vanA/B Vancomycin-Resist Genes Not Detected (Not Detect)
--- NOTE | 2017-01-19 10:26 | Invasive Diagnostic Lab ---
Name: Eric West Date of Study: 01/18/2017 Date: 1950 Ht: 168.0 cm /66.1 in Medical Record#: [id number] Age: 66 Wt: 89. kg / 196.21 lb Account/Order#: [id number] Gender: Male BSA: 1.99 Order #: [id number] Fluoro Dose: 348 mGy BMI: 31.53 Procedure Physician: Brian Ferraro MD, [facility] Referring MD: Referring MD: Procedures Performed: LEFT HEART CATH W/ GRAFTS Indications: Coronary Artery Disease, VT, CHF Impressions: Severe atherosclerotic coronary artery disease. There is severe three vessel coronary artery disease. There is severe LV Dysfunction EF 10-15%, dilated. S/P CABG 2 of 2 patent bypass grafts. Coronaries appear to be essentially unchanged since previous cath with patent left main stent. Circumflex has severe stenosis (as previously stated from last PCI at [facility]). Left system has ipsilateral and contralateral collaterals. Recommendations: Optimal medical therapy of patient's disease. Aggressive risk factor modification. History/Risk Factors: VT CAD CHF within 2 weeks Chronic Lung Disease Previous PCI Previous CABG Procedure Access obtained in the right Femoral artery by percutaneous puncture Complications: None Contrast: Isovue 95ml Hemodynamics: Pressures Site Systolic/ A Wave Diastolic/ V Wave End Diastolic/ Mean HR AO 106 89 97 89 AO 111 95 103 91 AO 100 80 89 90 LV 105 13 23 88 LV 105 14 24 89 AO 100 65 80 87 AO 94 79 87 87 LV Ventriculography Ejection Method: LV Gram Ejection Fraction: 10-15% Wall Motion: WU Anterobasal Severe Hypokinesis Anterolateral Severe Hypokinesis Apical: Severe Hypokinesis Inferoapical Akinesis Inferobasal Akinesis Coronary Dominance: right Lesion Findings/Interventions * Left Main Coronary Artery There is a 40-50% stenosis in the distal LMCA. The lesion has a YARY flow of 3. (LAD occluded) * Left Anterior Descending There is a 100% stenosis in the Proximal LAD. The lesion has a YARY flow of 0. * Circumflex There is a 70-80% stenosis in the Proximal Circumflex. The lesion has a YARY flow of 3. (Previous PCI at [facility] notes severe residual LCx disease with any reattempt at revascularization with possible use of venture -steerable - catheter) * Right Coronary Artery The Right Coronary Artery Aneurysmal. There is a 40-50% stenosis in the Mid RCA. The lesion has a YARY flow of 3. There is a 40-50% stenosis in the Distal RCA. The lesion has a YARY flow of 3. Additional Findings: Grafts * The saphenous vein graft to the Right PDA is patent. YARY flow is 3. * The left internal mammary graft to the Mid LAD is patent. YARY flow is 3. Updated by Negra Leavitt RN on 01/18/2017 5:19:11 PM Brian Ferraro MD, FACC electronically signed on 01/19/2017 10:19:46 AM with status of Final
--- NOTE | 2017-01-19 12:56 | Cardiology Progress Note ---
Date of Encounter: 01/19/17 Time of Encounter: 12:53 Assessment and Plan (1) Idioventricular rhythm Current Visit: Yes Status: Acute ECG/telemetry reviewed with Dr. Darinel Marina. Rhythm was concerning for slow VT and recommended starting mexiletine. Mexiletine 150 mg Q8H started on 01/16/17. On Coreg 25mg BID. Baseline ECG 01/16/17: HR 99 QRS 199 QT/QTc 494/527 ms. Rhythm now appears to be sinus with long 1st degree AV block and intermittent RBBB. Device check completed 01/17/17: normal functioning dual chamber ICD; atrial/ ventricular sensing at 104 bpm, good battery life, all device measurements are appropriate. [VT range >171 bpm, VT monitoring >154 bpm at least 16 beats]. S/P LHC yesterday--severe atherosclerotic CAD. Severe 3 vessel CAD. Severe LV dysfunction EF 10-15%, dilated. S/P CABG 2 of 2 patent bypass grafts. Coronaries appear essentially unchanged since previous cath with patent left main stent, LCx severe stenosis (as previously stated from last PCI at [facility]) Left system ipsilateral and contralateral collaterals. Reviewed and discussed with Dr. Darinel Marina. Rhythm no longer appears to be VT. Continue Mexiletine 150mg [id number]. Cardiology signing off. Reconsult PRN. Follow-up as outpt in 2-3 weeks. Will coordinate. (2) CAD (coronary artery disease) Current Visit: Yes Status: Acute Hx of CAD s/p CABG on two separate occasions and s/p PCI, most recent PCI 6 years ago. S/P LHC yesterday--severe atherosclerotic CAD. Severe 3 vessel CAD. Severe LV dysfunction EF 10-15%, dilated. S/P CABG 2 of 2 patent bypass grafts. Coronaries appear essentially unchanged since previous cath with patent left main stent, LCx severe stenosis (as previously stated from last PCI at [facility]) Left system ipsilateral and contralateral collaterals. continue ASA, plavix, nitrates, ranexa, betablocker, and statin. Also on fenofibrate and Zetia. Qualifiers: Coronary Disease-Associated Artery/Lesion type: bypass graft [place] vs. transplanted heart: [place] heart Associated angina: without angina Qualified Code(s): I25.810 - Atherosclerosis of coronary artery bypass graft(s) without angina pectoris (3) Presence of cardiac defibrillator Current Visit: Yes Status: Chronic ICD for ICMP. Interrogated and reviewed with Dr. Darinel Marina, NSVT. Discussion w patient/family: The assessment and plan as outlined above was discussed with the patient and/or family members who expressed understanding and agreement. All questions were answered. Thank you for involving us in the care of your patient. Please call with any questions. I will discuss all the above with Dr. Darinel Marina and make changes as necessary. Subjective Principal diagnosis: Respiratory Failure Interval history: S/P LHC yesterday--severe atherosclerotic CAD. Severe 3 vessel CAD. Severe LV dysfunction EF 10-15%, dilated. S/P CABG 2 of 2 patent bypass grafts. Coronaries appear essentially unchanged since previous cath with patent left main stent, LCx severe stenosis (as previously stated from last PCI at [facility]) Left system ipsilateral and contralateral collaterals. Pt continues to have slow VT with intermittent SR. Objective Vital Signs, Last 4 Hours Temp Pulse Resp BP Pulse Ox 01/19/17 11:31 97.9 F 79 18 117/81 92 01/19/17 09:22 92 Vital Signs Temp Pulse Resp BP Pulse Ox 01/19/17 11:31 97.9 F 79 18 117/81 92 01/19/17 09:22 92 01/19/17 07:47 18 95 01/19/17 07:20 97.8 F 80 20 113/79 90 01/19/17 04:15 18 88 01/19/17 03:58 98.2 F 86 22 128/82 90 01/19/17 00:11 18 93 01/18/17 23:24 97.8 F 95 20 118/77 90 01/18/17 21:00 91 112/82 01/18/17 20:31 20 91 01/18/17 20:00 89 117/81 01/18/17 19:37 97.5 F L 95 20 116/82 91 01/18/17 19:05 93 110/87 92 01/18/17 18:34 96 120/105 92 01/18/17 18:20 95 118/90 92 01/18/17 18:04 92 112/75 91 01/18/17 17:50 94 102/82 92 01/18/17 17:45 94 103/94 91 01/18/17 17:41 96.5 F L 93 18 108/81 90 01/18/17 17:39 95 108/81 90 Intake and Output 01/18/17 01/19/17 01/19/17 23:59 07:59 15:59 Intake Total 1240 / 1240 340 / 340 Output Total 350 / 350 600 / 600 Balance 890 / 890 -600 / -600 340 / 340 Intake: IV Fluids 100 / 100 100 / 100 Maxipime 1,000 MG In 100 / 100 100 / 100 Dextrose 5% (Minibag+) 100 ML 100 ML @ 200 mls/ hr IVPB Q12HR [facility] Rx#: [id number] Oral 1140 / 1140 240 / 240 Output: Urine 350 / 350 600 / 600 Other: Meal ham sandwhich Breakfast Percent of Meal Consumed 100% 100% Weight 89.5 kg Patient Weight 01/19/17 23:59 Weight 89.5 kg General: Conversant, No Apparent Distress HEENT: Atraumatic, Normocephaly, Mucus Membranes Moist Neck: No JVD, Normal carotid pulses Cardiac: Reg Rate and Rhythm, Normal S1 and S2, No Murmur Lungs: Normal Breath Sounds, No Wheeze, Rales, Rhonchi Neuro: Alert and responsive, No focal deficits noted Abdomen: Soft, Non-Tender Skin: No rashes noted on visualized skin Musculoskeletal: No Chest Wall Tenderness Extremities: No Clubbing, No Cyanosis, No Edema, Normal Pulses Results 01/19/17 06:32 01/19/17 06:32 Lab Results 01/19/17 01/19/17 06:32 06:32 WBC 10.4 Hgb 14.0 Hct 40.8 Plt Count 181 Sodium 133 L Potassium 4.2 Chloride 96 L Carbon Dioxide 31 H BUN 25 Creatinine 1.10 Glucose 125 H Calcium 8.9 Short CBC 01/19/17 Range/Units 06:32 WBC 10.4 (4.3-11.1) K/mcL Hgb 14.0 (12.9-16.9) g/dL Hct 40.8 (37.5-50.1) % Plt Count 181 (140-400) K/mcL Neutrophils # 7.9 (1.6-8.9) K/mcL BMP 01/19/17 Range/Units 06:32 Sodium 133 L (136-145) mEq/L Potassium 4.2 (3.5-4.5) mEq/L Chloride 96 L (98-109) mEq/L Carbon Dioxide 31 H (19-29) mEq/L BUN 25 (8-26) mg/dL Creatinine 1.10 (0.72-1.25) mg/dL Glucose 125 H (70-99) mg/dL Calcium 8.9 (8.6-10.8) mg/dL Active Medications Acetaminophen (Tylenol) 650 mg PO Q6HR PRN PRN Reason: Pain Stop: 07/14/17 01:00 Last Admin: 01/12/17 01:24 Dose: 650 mg Albuterol/Ipratropium (Duoneb) 3 ml IH [id number] [facility] PRN Reason: Protocol Stop: 07/14/17 20:01 Last Admin: 01/19/17 11:02 Dose: Not Given Aspirin (Aspirin Ec) 81 mg PO DAILY J[facility] Stop: 07/18/17 09:01 Last Admin: 01/19/17 07:32 Dose: 81 mg Atorvastatin Calcium (Lipitor) 40 mg PO DAILY [facility] Stop: 07/13/17 09:01 Last Admin: 01/19/17 07:32 Dose: 40 mg Budesonide/Formoterol Fumarate (Symbicort) 2 puff IH BIDR [facility] PRN Reason: Protocol Stop: 07/12/17 22:01 Last Admin: 01/19/17 07:45 Dose: 2 puff Carvedilol (Coreg) 25 mg PO BID [facility] PRN Reason: Protocol Stop: 07/12/17 21:01 Last Admin: 01/19/17 07:32 Dose: 25 mg Clopidogrel Bisulfate (Plavix) 75 mg PO DAILY [facility] Stop: 07/13/17 09:01 Last Admin: 01/19/17 07:33 Dose: 75 mg Diazepam (Valium) 5 mg PO TID PRN PRN Reason: Anxiety Stop: 07/19/17 09:01 Fenofibrate (Tricor) 162 mg PO DAILY JUVENTINO PRN Reason: Protocol Stop: 07/12/17 20:46 Last Admin: 01/19/17 07:33 Dose: 162 mg Furosemide (Lasix) 40 mg PO BIDDIURETIC [facility] Stop: 07/19/17 17:01 Last Admin: 01/19/17 07:32 Dose: 40 mg Guaifenesin (Mucinex) 1,200 mg PO BID [facility] Stop: 07/15/17 20:14 Last Admin: 01/19/17 07:32 Dose: 1,200 mg Heparin Sodium (Porcine) (Heparin) 5,000 unit SQ Q8HCO [facility] Stop: 07/12/17 22:01 Last Admin: 01/19/17 06:11 Dose: 5,000 unit Cefepime HCl 1,000 mg/ (Dextrose) 100 mls @ 200 mls/hr IVPB Q12HR [facility] Stop: 07/18/17 18:01 Last Infusion: 01/19/17 09:26 Dose: Infused Isosorbide Mononitrate (Imdur) 120 mg PO DAILY [facility] Stop: 07/13/17 09:01 Last Admin: 01/19/17 07:32 Dose: 120 mg Mexiletine HCl (Mexitil) 150 mg PO Q8HR [facility] Stop: 07/18/17 16:01 Last Admin: 01/19/17 07:31 Dose: 150 mg Naloxone HCl (Narcan) 0.4 mg IVP Q2MIN PRN PRN Reason: Opioid Reversal Stop: 07/12/17 19:55 Omeprazole (Prilosec) 20 mg PO DAILY@0630 [facility] PRN Reason: Protocol Stop: 07/13/17 06:31 Last Admin: 01/19/17 06:11 Dose: 20 mg Oxycodone HCl (Roxicodone) 15 mg PO Q6H PRN PRN Reason: MODERATE TO SEVERE PAIN 4-10 Stop: 07/14/17 18:01 Pharmacy Profile Note (Patient Taking Own Medication) 0 each PO DAILY [facility] Stop: 07/14/17 09:01 Last Admin: 01/19/17 07:34 Dose: 1 each Prednisone (Prednisone) 40 mg PO DAILY [facility] Stop: 07/19/17 09:01 Last Admin: 01/19/17 07:32 Dose: 40 mg Ranolazine (Ranexa) 1,000 mg PO BID [facility] Stop: 07/12/17 21:01 Last Admin: 01/19/17 07:32 Dose: 1,000 mg - Imaging and Cardiology Echo: report reviewed Cardiac cath: report reviewed - EKG Interpretation EKG results cardiology: other (12 hr tele AVG HR 85, slow VT/idioventricular rhythm, intermittent sinus) Consult Discharge Plan - Plan Referrals: Jani Slaughter MD [Primary Care Provider] - Mary Lala CNP [Advanced Practice Nurse] - 01/25/17 1:00 pm
--- NOTE | 2017-01-19 14:45 | Discharge Summary ---
Date of Encounter: 01/19/17 Time of Encounter: 09:15 - Discharge Diagnosis (1) Acute and chronic respiratory failure with hypoxia Priority: Primary Status: Acute Comments: Acute on chronic hypoxic respiratory failure - secondary to acute COPD exacerbation, acute systolic CHF exacerbation, probable obstructive sleep apnea and combined pulmonary fibrosis and emphysema and probable right middle lobe pneumonia - now improved Patient did not qualify for BiPAP, CO2 is 44 Continue O2 at 4 L via nasal cannula, DuoNeb breathing treatment, Spiriva, Symbicort Needs close outpatient follow-up with pulmonology, needs outpatient sleep study (2) COPD (chronic obstructive pulmonary disease) Priority: Primary Status: Acute Comments: Acute on chronic hypoxic respiratory failure secondary to COPD exacerbation - now improved Combined pulmonary fibrosis and emphysema - now requires O2 at 4 L via nasal cannula ABG shows PCO2 of 44, does not qualify for BiPAP Probable obstructive sleep apnea - will need outpatient sleep study and follow- up with pulmonology Continue DuoNeb breathing treatment, Spiriva and Symbicort, tapering dose of steroids Qualifiers: COPD type: COPD with acute exacerbation Qualified Code(s): J44.1 - Chronic obstructive pulmonary disease with (acute) exacerbation (3) Acute on chronic systolic (congestive) heart failure Priority: Primary Status: Acute Comments: Acute systolic CHF exacerbation - now improved Continue all home meds including beta jazmín, Lasix, Ranexa and ACEi/ARB Advised 1.2 - 1.5 L fluid restriction [facility] - LVEF 10-15%, dilated (4) Idioventricular rhythm Priority: Primary Status: Acute Comments: Initial EKG revealed slow ventricular response and slow VT AICD interrogation - normal functioning dual-chamber AICD Cardiology recommends to continue Mexiletine 150 mg every 8 hours and Coreg 25 mg twice a day Rhythm is now sinus with first-degree AV block and intermittent RBBB S/P [facility] yesterday--severe atherosclerotic CAD. Severe 3 vessel CAD. Severe LV dysfunction EF 10-15%, dilated. S/P CABG 2 of 2 patent bypass grafts. Coronaries appear essentially unchanged since previous cath with patent left main stent, LCx severe stenosis (as previously stated from last PCI at [facility]) Left system ipsilateral and contralateral collaterals. Follow-up with cardiology as outpatient (5) CAD (coronary artery disease) Priority: Secondary Status: Chronic Comments: Coronary artery disease status post CABG and PCI [facility] yesterday - severe atherosclerotic coronary artery disease, severe 3 vessel disease, severe LV dysfunction LVEF 10-15%, dilated, patent bypass grafts, coronaries essentially unchanged since previous heart catheterization Continue aspirin, Plavix, statin, Ranexa, beta jazmín Follow-up with cardiology as outpatient Qualifiers: Coronary Disease-Associated Artery/Lesion type: bypass graft [place] vs. transplanted heart: [place] heart Associated angina: without angina Qualified Code(s): I25.810 - Atherosclerosis of coronary artery bypass graft(s) without angina pectoris (6) Presence of cardiac defibrillator Priority: Secondary Status: Chronic Comments: AICD for idiopathic cardiomyopathy, interrogated Follow-up with cardiology regularly (7) Anxiety Priority: Secondary Status: Chronic Comments: Continue home meds (8) Hep C w/o coma, chronic Priority: Secondary Status: Chronic Comments: outpatient follow up - Discharge Medications Prescriptions: Ipratropium/Albuterol Neb [Duoneb] 3 ml IH [id number] PRN #30 inh PRN Reason: Shortness Of Breath/Wheezing Mexiletine [Mexitil] 150 mg PO Q8HR 30 Days Carvedilol [Coreg] 25 mg PO BID 30 Days diazePAM [Valium] 5 mg PO TID PRN #7 tab PRN Reason: Anxiety Furosemide [Lasix] 60 mg PO BID 30 Days GuaiFENesin ER [Mucinex] 1,200 mg PO BID 5 Days Isosorbide MONOnitrate (24 HR) [Imdur] 120 mg PO DAILY #30 predniSONE [PredniSONE] 40 mg PO DAILY #20 tab Ranolazine [Ranexa] 1,000 mg PO BID 30 Days Home Medications: Aspirin Enteric Coated [Aspirin EC] 162 mg PO DAILY 05/16/15 [History] Atorvastatin [Lipitor] 40 mg PO DAILY 05/16/15 [History] Carvedilol [Coreg] 25 mg PO BID 05/16/15 [History] Clopidogrel [Plavix] 75 mg PO DAILY 05/16/15 [History] Fenofibrate [Lofibra] 145 mg PO DAILY 05/16/15 [History] Isosorbide MONOnitrate (24 HR) [Imdur] 120 mg PO DAILY 05/16/15 [History] Losartan [Cozaar] 25 mg PO DAILY 05/16/15 [History] Ranolazine [Ranexa] 1,000 mg PO BID 05/16/15 [History] Budesonide/Formoterol 160/4.5 [Symbicort] 2 puff IH BIDR #1 inhaler 05/21/15 [Rx ] Promethazine/Codeine [Phenergan/Codeine] 5 ml PO Q4HR PRN #100 udc 05/21/15 [Rx] Furosemide [Lasix] 60 mg PO BID 01/11/17 [History] Carvedilol [Coreg] 25 mg PO BID 30 Days 01/19/17 [Rx] Furosemide [Lasix] 60 mg PO BID 30 Days 01/19/17 [Rx] GuaiFENesin ER [Mucinex] 1,200 mg PO BID 5 Days 01/19/17 [Rx] Ipratropium/Albuterol Neb [Duoneb] 3 ml IH [id number] PRN #30 inh 01/19/17 [Rx] Isosorbide MONOnitrate (24 HR) [Imdur] 120 mg PO DAILY #30 01/19/17 [Rx] Mexiletine [Mexitil] 150 mg PO Q8HR 30 Days 01/19/17 [Rx] Patient Taking Own Medication 0 each PO DAILY each 01/19/17 [Rx] Ranolazine [Ranexa] 1,000 mg PO BID 30 Days 01/19/17 [Rx] diazePAM [Valium] 5 mg PO TID PRN #7 tab 01/19/17 [Rx] predniSONE [PredniSONE] 40 mg PO DAILY #20 tab 01/19/17 [Rx] Allergies/Adverse Reactions: Allergies No Known Allergies Allergy (Verified 01/11/17 09:57) Procedures/tests Complete & Pending: Procedures Performed prior 72 hours Category Date Time Status CL Cardiac Catheterization [CL] Routine [facility] 01/18/17 12:39 Completed ECG 12 lead ECG [ECG] AM 0600 Y 01/17/17 06:00 Completed ECG 12 lead ECG [ECG] AM 0600 Y 01/18/17 06:00 Completed ECG 12 lead ECG [ECG] AM 0600 Y 01/19/17 06:00 Completed ECG 12 lead ECG [ECG] AM 0600 Y 01/20/17 06:00 Ordered Date of admission: 01/11/17 19:38 Primary care physician: Jani Slaughter MD Consults: 01/13/17 16:52 Consult to Magistrate Assistant [CONS] Routine Reason for SW Consult: home oxygen 01/13/17 20:12 Consult to Pulmonology [CONS] Routine Consulting Provider: [facility] [place] Reason for Consult: continues to decompensate with unknown etiology. increased O2 demand. please eval and advise; will call im am. Call Completed: No 01/14/17 10:16 Consult to Cardiology [CONS] Stat Comment: Consulting Provider: Cardiology [place] Reason for Consult: sustained tachycardia with EKG changes. worsening hypoxia. trop neg, trending Time Notified: 10:17 Call Completed: Yes 01/17/17 11:35 Consult to Respiratory Therapy [CONS] Routine Reason for Consult: Overnight pulse oximetry for bipap qualification. Call Completed: Yes 01/18/17 08:00 Consult to Electrophysiology (EP) [CONS] Routine Consulting Provider: Electrophysiology Krista Reason for Consult: slow VT Call Completed: Yes Anticipated date of discharge: 01/19/17 - Patient Status Disposition: Home, Self-Care Condition: Fair Functional capacity at discharge: independent ambulation Overall status at discharge: patient is progressing back to baseline - Discharge Instructions Instructions: Heart Failure (DC), Chronic Obstructive Pulmonary Disease (DC) Follow Up With: Jani Slaughter MD [Primary Care Provider] - Tai Krishnan MD [Partnered Physician] - 01/25/17 9:15 am Alicia Baron CNP [Partnered Physician] - 02/03/17 2:00 pm (this appointment is in [place]) Mary Lala CNP [Advanced Practice Nurse] - 01/25/17 1:00 pm - Diet and Activity Activity: increase activity as tolerated, wear oxygen at all times Diet: low fat, low cholesterol, low salt diet Hospital course: Mr. West is a 66 year old male with past medical history of CAD status post CABG, CHF systolic dysfunction status post AICD, COPD, hyperlipidemia, hypertension, hepatitis C and chronic respiratory failure. Patient presented with the complaints of worsening cough and shortness of breath. He does use oxygen at home and he has been requiring 5-6 L nasal cannula to keep his O2 sats greater than 90%. Patient also complained of increasing lower extremity edema and abdominal fullness and distention. Initial CT of the chest with contrast was negative for PE but did show severe emphysema in the apical regions. Patient does have a history of smoking and also has had exposure to industrial chemicals. Patient was continued on all his home medications. He was also found to have idioventricular rhythm with a slow ventricular response and a slow VT on admission. Cardiology consulted. AICD was interrogated and was found to be normal functioning dual-chamber AICD. Cardiology has started the patient on Mexiletine 150 mg every 8 hours. Also advised continue carvedilol. Patient is now in sinus rhythm with first-degree AV block and intermittent RBBB. Patient did have a left heart catheterization during stay in the hospital and revealed severe three-vessel coronary artery disease with LV dysfunction with LVEF 10-15%, dilated. Status post CABG patent stents. Coronaries are essentially unchanged. Patient is also on a full diet and continued on Lasix. He is also on DuoNeb breathing treatment and Spiriva and Symbicort. He is also on empiric IV antibiotics and also IV steroids which was then switched to by mouth steroids. Patient did not qualify for BiPAP as his PCO2 was 44. Pulmonology has also evaluated the patient. They recommended outpatient sleep study and also to continue BiPAP. Patient likely has combined pulmonary fibrosis and emphysema and his oxygen requirement is around 4 L O2 via nasal cannula. His COPD exacerbation and acute on chronic hypoxic respiratory failure is now improved. Exacerbation of CHF is also now improved. Patient will be continued on all his home medications. Prescription for Mexiletine has been given. Patient has been advised to follow up with pulmonology and cardiology regularly. Patient and family members have been explained about his condition and prognosis. They understood and agreed. Patient and family state they will buy a BiPAP machine on the [place] and will follow up with pulmonology for sleep study eventually. They had no unanswered questions. Patient is tolerating oral diet well. He requires some assistance with ambulation. He is being discharged in stable condition. Patient did not have any other acute events or complications during his stay in the hospital. - Time Spent with Patient Total time spent providing and/or coordinating discharge services: Greater than 30 minutes - Constitutional Vitals: Temp Pulse Resp BP Pulse Ox 97.9 F 79 18 117/81 92 01/19/17 11:31 01/19/17 11:31 01/19/17 11:31 01/19/17 11:31 01/19/17 11:31 General appearance: Present: cooperative, A&O X 3, pleasant, no acute distress, answers questions appropriately Exam: Generalized weakness, chronically ill-appearing - Head Head exam: Present: atraumatic - Eye Eye exam: Present: EOMI - Neck Neck exam general surgery: Present: supple - Respiratory Respiratory exam: Present: decreased breath sounds (Slightly decreased in both bases), rhonchi (Mild bilateral), wheezes (Mild bilateral). Absent: rales, tachypnea - Cardiovascular Cardiovascular exam: Present: RRR, +S1, +S2, systolic murmur - GI/Abdominal GI/Abdominal exam: Present: soft. Absent: distended, firm, guarding, tenderness - Extremities Exam Extremities exam: Present: pedal edema (Mild bilateral pedal edema), radial pulses palpable and symmetrical. Absent: cyanotic - Neurological Exam Neurological exam: Present: alert, oriented X3, no focal deficits. Absent: facial droop, speech deficit
[2017-01-19 16:16] VITALS: BP 109/62
--- NOTE | 2017-01-20 14:31 | Electrocardiograph Report ---
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
== END 2017-01-19 18:04 | disposition home or self-care (01) | DRG 286 ==
LOC: 3BNU 13:44 → EMEROO 13:44 → 3BNU 16:03 → SUATTDRO 01-11 19:38 → 2NNU 01-14 19:27
PROVIDERS: ADMIT Nurse Practitioner Family; ATTEND Nurse Practitioner Family

== ENCOUNTER 2018-04-12 12:16 | Observation (INO) ==
[2018-04-12 13:20] LABS: Basophils # 0.1 K/mcL (0.0-0.2); Basophils % 0.5 %; Eosinophils # 0.1 K/mcL (0.0-0.6); Eosinophils % 1.4 %; Hematocrit 43.8 % (37.5-50.1); Immature Granulocytes % 0.8 % (0-4); Lymphocytes # 0.9 K/mcL (0.6-4.6); Lymphocytes % 9.2 %; Mean Corpuscular HGB Conc 34.2 g/dL (31.6-35.5); Mean Corpuscular Hemoglobin 34.3 pg (28.0-33.3); Mean Corpuscular Volume 100.2 fL (83.0-100.0); Monocytes # 0.5 K/mcL (0.0-1.3); Monocytes % 4.7 %; Neutrophils # 8.4 K/mcL (1.6-8.9); Platelet Count 132 K/mcL (140-400); Red Blood Count 4.37 M/mcL (4.19-5.50); Red Cell Distribution Width 13.6 % (11.5-14.5); Segmented Neutrophils % 83.4 %
[2018-04-12 13:38] LABS: Calcium 9.3 mg/dL (8.6-10.3); Potassium 4.5 mEq/L (3.5-5.1)
[2018-04-12 13:44] LABS: Troponin I 0.17 ng/mL (< 0.04)
[2018-04-12] MEDS ORDERED: Isovue-370 500 ML INFUS..BTL IV ONE (14:25)
[2018-04-12] MEDS ORDERED: Aspirin 81 MG TAB.CHEW PO ONE (16:01)
--- NOTE | 2018-04-12 16:07 | Emergency Department Note ---
Disposition Clinical Impression: Acute CHF, Near syncope, Elevated troponin Disposition: Admitted As Inpatient Condition: Fair Time of Disposition: 16:00 SOB HPI - General Chief Complaint: ED Shortness of Breath/Dyspnea Stated Complaint: ZEENAT,Blurred vision Time Seen by Provider: 04/12/18 12:24 Source: patient Mode of arrival: ambulatory Limitations: no limitations Nursing Notes Reviewed: Yes Vital Signs Reviewed: Yes - History of Present Illness 68-year-old male presents emergency Department with concerns of difficulty in breathing and a near syncopal episode. Patient states he was ambulating out of the car when he suddenly became weak, fatigued, short of breath. states his lips started to turn blue. He has an extensive history of COPD and congestive heart failure as well as coronary artery disease requiring multiple bypass surgery and stents. Last heart catheterization was one year ago which returned the recommendation of aggressive medical management and optimization of medications. Patient states he did not have chest pain over the past few weeks and generally he had chest pain with his previous MD. Patient states that does not exactly feel like his COPD as he is breathing well at rest. He does state it feels similar to his previous CHF exacerbation. - Related Data Home Medications Medication Instructions Recorded Confirmed RX: Aspirin Enteric Coated 162 mg PO DAILY 05/16/15 04/12/18 [Aspirin EC] Acetylcysteine 600 mg PO TID 04/12/18 04/12/18 [Y-Vtplpd-t-Cysteine] Albuterol Sulfate [Proair Hfa] 2 puff IH Q4H PRN 04/12/18 04/12/18 Atorvastatin [Lipitor] 40 mg PO HS 04/12/18 04/12/18 Ezetimibe [Zetia] 10 mg PO DAILY 04/12/18 04/12/18 Fluticasone/Vilanterol [Breo 1 puff IH QAM 04/12/18 04/12/18 Ellipta 100-25 Mcg INH] Furosemide [Lasix] 80 mg PO BID 04/12/18 04/12/18 Isosorbide MONOnitrate (24 HR) 120 mg PO DAILY 04/12/18 04/12/18 [Imdur] Losartan [Cozaar] 25 mg PO DAILY 04/12/18 04/12/18 Metoprolol Tartrate [Lopressor] 50 mg PO BID 04/12/18 04/12/18 RX: Clopidogrel [Plavix] 75 mg PO DAILY 04/12/18 04/12/18 RX: Ipratropium/Albuterol Neb 3 ml IH TID 04/12/18 04/12/18 [Duoneb] RX: OxyCODONE Immed Rel 30 mg PO Q4H PRN 04/12/18 04/12/18 [Roxicodone 30 MG] RX: diazePAM [Valium] 5 mg PO Q6H PRN 04/12/18 04/12/18 Spironolactone [Aldactone] 50 mg PO DAILY 04/12/18 04/12/18 Tiotropium [place] [Spiriva 2 puff IH QAM 04/12/18 04/12/18 Respimat] Previous Rx's Medication Instructions Recorded RX: Mexiletine [Mexitil] 150 mg PO Q8HR 30 Days 01/19/17 RX: Ranolazine [Ranexa] 1,000 mg PO BID 30 Days 01/19/17 Allergies Allergy/AdvReac Type Severity Reaction Status Date / Time No Known Allergies Allergy Verified 04/12/18 12:24 All systems ED: reviewed and negative except as stated. Review of Systems: As Per HPI Past Medical History - Past Medical History Attestation: Yes The following information was validated with the patient. Source: patient Medical history: Reports: cardiomyopathy, CHF, COPD, coronary artery disease, hyperlipidemia, hypertension, other (Hepatitis C) Surgical history: Reports: angioplasty/stent, coronary bypass (CABG), herniorrhaphy, pacemaker/AICD Psychiatric history: Reports: anxiety - Social History Smoking Status: Former smoker Smokeless Tobacco Status: No Alcohol use: Reports: rarely Drug use: Reports: none Physical Exam General: Alert and in no acute distress Skin: Warm, dry, intact Head: Normocephalic and atraumatic Neck: Supple, trachea midline and no tenderness Cardiovascular: RRR, no murmur, normal perfusion Respiratory: CTAB, no wheezing, cough, or respiratory distress Musculoskeletal: Normal strength, no tenderness, swelling or deformity GI: Soft, nontender, nondistended. Bowel sounds present Neuro: A&O to person, place, time and situation. No focal deficits noted on exam Psychiatric: cooperative and appropriate mood and affect. Course Vital Signs Pulse Rate 75 04/12/18 12:22 Respiratory Rate 22 04/12/18 12:22 Blood Pressure 97/63 04/12/18 12:22 O2 Sat by Pulse Oximetry 97 04/12/18 12:22 Temperature 98.5 F 04/13/18 19:40 Pulse Rate 79 04/13/18 19:40 Respiratory Rate 20 04/13/18 19:40 Blood Pressure 102/68 04/13/18 19:40 O2 Sat by Pulse Oximetry 87 04/13/18 19:40 Oxygen Delivery Oxygen Delivery Room Air Shortness of Breath/Dyspnea - Medical Records Medical records reviewed: Yes I reviewed the patient's medical records. - Lab Data Lab results reviewed: Yes I reviewed the patient's lab results. Result diagrams: 04/13/18 02:59 04/13/18 02:59 Lab Results 04/12/18 04/12/18 04/12/18 Range/Units 13:03 13:03 13:03 WBC 10.0 (4.3-11.1) K/mcL RBC 4.37 (4.19-5.50) M/mcL Hgb 15.0 (12.9-16.9) g/dL Hct 43.8 (37.5-50.1) % MCV 100.2 H (83.0-100.0) fL MCH 34.3 H (28.0-33.3) pg MCHC 34.2 (31.6-35.5) g/dL RDW 13.6 (11.5-14.5) % Plt Count 132 L (140-400) K/mcL MPV 11.0 (9.4-12.4) fL Immature Gran % 0.8 (0-4) % Seg Neutrophils % 83.4 % Lymphocytes % 9.2 % Monocytes % 4.7 % Eosinophils % 1.4 % Basophils % 0.5 % Neutrophils # 8.4 (1.6-8.9) K/mcL Lymphocytes # 0.9 (0.6-4.6) K/mcL Monocytes # 0.5 (0.0-1.3) K/mcL Eosinophils # 0.1 (0.0-0.6) K/mcL Basophils # 0.1 (0.0-0.2) K/mcL Sodium 131 L (136-145) mEq/L Potassium 4.5 (3.5-5.1) mEq/L Chloride 99 (98-107) mEq/L Carbon Dioxide 25 (23-29) mEq/L BUN 31 H (8-23) mg/dL Creatinine 1.46 H (0.70-1.30) mg/dL Est GFR ( Amer) 58 L (> 60) Est GFR (Non-Af Amer) 48 L (> 60) BUN/Creatinine Ratio 21 (6-26) Glucose 119 H (70-105) mg/dL Calculated Osmolality 280 (280-300) Lactic Acid 2.1 (0.5-2.2) mmol/L Calcium 9.3 (8.6-10.3) mg/dL Troponin I 0.17 H* (< 0.04) ng/mL B-Natriuretic Peptide (Less than 100) pg/mL 04/12/18 04/12/18 Range/Units 13:03 15:16 WBC (4.3-11.1) K/mcL RBC (4.19-5.50) M/mcL Hgb (12.9-16.9) g/dL Hct (37.5-50.1) % MCV (83.0-100.0) fL MCH (28.0-33.3) pg MCHC (31.6-35.5) g/dL RDW (11.5-14.5) % Plt Count (140-400) K/mcL MPV (9.4-12.4) fL Immature Gran % (0-4) % Seg Neutrophils % % Lymphocytes % % Monocytes % % Eosinophils % % Basophils % % Neutrophils # (1.6-8.9) K/mcL Lymphocytes # (0.6-4.6) K/mcL Monocytes # (0.0-1.3) K/mcL Eosinophils # (0.0-0.6) K/mcL Basophils # (0.0-0.2) K/mcL Sodium (136-145) mEq/L Potassium (3.5-5.1) mEq/L Chloride (98-107) mEq/L Carbon Dioxide (23-29) mEq/L BUN (8-23) mg/dL Creatinine (0.70-1.30) mg/dL Est GFR ( Amer) (> 60) Est GFR (Non-Af Amer) (> 60) BUN/Creatinine Ratio (6-26) Glucose (70-105) mg/dL Calculated Osmolality (280-300) Lactic Acid 1.2 (0.5-2.2) mmol/L Calcium (8.6-10.3) mg/dL Troponin I (< 0.04) ng/mL B-Natriuretic Peptide 727 H (Less than 100) pg/mL - Radiology Data Radiology results reviewed: Yes I reviewed the patient's radiology results. - EKG Data EKG attestation: Yes I reviewed and interpreted this EKG. EKG results narrative: EKG shows a sinus rhythm with a wide QRS complex which is unchanged from previous EKG. Has rate of 64. EKG unchanged from previous.
[2018-04-12] MEDS ORDERED: Furosemide 40 MG/4 ML VIAL IVP ONE (16:20)
[2018-04-12] MEDS ORDERED: Naloxone 0.4 MG/ML INJ IVP PRN (16:54)
[2018-04-12] MEDS ORDERED: *HR* Heparin 5,000 UNIT/ML VIAL IVP PRN ×2 (17:02)
[2018-04-12] MEDS ORDERED: *HR* Heparin 5,000 UNIT/ML VIAL IVP ONE (17:02)
[2018-04-12] MEDS ORDERED: *HR* OxyCODONE Immed Rel 15 MG TABLET PO PRN (17:05)
--- NOTE | 2018-04-12 17:11 | Internal Med History&Physical ---
<Chadwick Lyon S - Last Filed: 04/12/18 17:36> Date of Encounter: 04/12/18 Time of Encounter: 17:00 Internal Medicine - H&P: HPI Chief complaint: lightheadedness Admitted From: Home Plans for Post Hospital Care: Home History of present illness: Mr. West is a 68 year old male with PMH of COPD on 4L o2, CAD, HTN, anxiety, and s/p CABG x 8, he has a pacemaker. Pt has c/o increased weakness from baseline and increased SOB from baseline. He has c/o SOB with any activity but this morning it was much worse. He was coming into town this morning and while in the car had an episode where he "saw completely white" and then had intermittent blurry and double vision. He has an extensive cardiac hx including 8 bypasses, multiple heart attacks, a pacemaker and multiple stents. Last stent was in 2017. He says that this isn't like his last heart attack, other than some nausea in the morning. The pt reports that he has not had any palpiltations, no active chest pain at the time. He has chronic SOB. He denies any active nausea, no vomtiing, no diarrhea. The pt reports that there was NO chest pain at all associated with this episode. The pt had an initial troponin of 0.17 in the ED. CXR negative for acute cardiopulmonary process. CT scan negative for pulmonary embolism. The pt is seen and examined at bedside. He has no complaints or concerns at this time. Past Med Surg Social Fam HX - Past Medical History Medical history: cardiomyopathy, CHF, COPD, coronary artery disease, hyperlipidemia, hypertension, other (Hepatitis C) Additional medical history: emphysema, hep c, sciatica, skeletal deteriation Psychiatric history: anxiety - Past Surgical History Surgical History: angioplasty/stent, coronary bypass (CABG), herniorrhaphy, pacemaker/AICD Additional surgical history: , HERNIA REPAIR OPEN HEART, PACEMAKER WITH DEFIB - Social History Smoking Status: Former smoker Smokeless Tobacco Status: No Alcohol use: rarely Drug use: none - Family History Mother Adopted: Yes Internal Medicine - H&P: Meds Aspirin Enteric Coated [Aspirin EC] 162 mg PO DAILY 05/16/15 [History] Carvedilol [Coreg] 25 mg PO BID 30 Days tab 01/19/17 [Rx] Mexiletine [Mexitil] 150 mg PO Q8HR 30 Days 01/19/17 [Rx] Ranolazine [Ranexa] 1,000 mg PO BID 30 Days 01/19/17 [Rx] Acetylcysteine [I-Wwsrdf-l-Cysteine] 600 mg PO TID 04/12/18 [History] Albuterol Sulfate [Proair Hfa] 2 puff IH Q4H PRN 04/12/18 [History] Atorvastatin [Lipitor] 40 mg PO HS 04/12/18 [History] Clopidogrel [Plavix] 75 mg PO DAILY 04/12/18 [History] Ezetimibe [Zetia] 10 mg PO DAILY 04/12/18 [History] Fluticasone/Vilanterol [Breo Ellipta 100-25 Mcg INH] 1 puff IH QAM 04/12/18 [History] Furosemide [Lasix] 80 mg PO BID 04/12/18 [History] Ipratropium/Albuterol Neb [Duoneb] 3 ml IH TID 04/12/18 [History] Isosorbide MONOnitrate (24 HR) [Imdur] 120 mg PO DAILY 04/12/18 [History] Losartan [Cozaar] 25 mg PO DAILY 04/12/18 [History] Metoprolol Tartrate [Lopressor] 50 mg PO BID 04/12/18 [History] OxyCODONE Immed Rel [Roxicodone 30 MG] 30 mg PO Q4H PRN 04/12/18 [History] Spironolactone [Aldactone] 50 mg PO DAILY 04/12/18 [History] Tiotropium [place] [Spiriva Respimat] 2 puff IH QAM 04/12/18 [History] diazePAM [Valium] 5 mg PO Q6H PRN 04/12/18 [History] Allergy/AdvReac Type Severity Reaction Status Date / Time No Known Allergies Allergy Verified 04/12/18 12:24 All Systems PM: A 10-system review of systems was performed and is negative for pertinent findings except as documented above in the HPI. - Constitutional Constitutional: fatigue, lethargy - EENT Eyes: blurry vision, loss of vision - Cardiovascular Cardiovascular ROS IM: diaphoresis, dyspnea, dyspnea on exertion, lightheadedness - Respiratory Respiratory: dyspnea, dyspnea on exertion - Gastrointestinal Gastrointestinal: bloating, nausea, no diarrhea, no vomiting - Integumentary Integumentary IM: no rash, no skin ulcer - Neurological Neurological ROS: dizziness, focal weakness, no numbness - Psychiatric Psychiatric: anxiety, depression - Constitutional Vitals: Pulse Resp BP Pulse Ox 88 16 106/72 97 04/12/18 16:08 04/12/18 16:08 04/12/18 16:08 04/12/18 16:08 Exam: General - aox3, no acute distress, laying in bed heent - ncat, mucous membranes moist cardio - rrr, s1s2, cta, no mrg lungs - ctab, no wheeze/rhonchi/rales abd - obese, ntnd, no rebound or guarding skin - no rash, no edema msk - normal inspection psych - appropriate mood/affect neuro - no fnd, sensation intact Internal Med - H&P Results - Labs CBC & Chem 7: 04/12/18 13:03 04/12/18 13:03 Labs: Short CBC 04/12/18 Range/Units 13:03 WBC 10.0 (4.3-11.1) K/mcL Hgb 15.0 (12.9-16.9) g/dL Hct 43.8 (37.5-50.1) % Plt Count 132 L (140-400) K/mcL Neutrophils # 8.4 (1.6-8.9) K/mcL BMP 04/12/18 13:03 Sodium 131 L Potassium 4.5 Chloride 99 Carbon Dioxide 25 BUN 31 H Creatinine 1.46 H Glucose 119 H Calcium 9.3 Cardiac Enzymes 04/12/18 Range/Units 13:03 Troponin I 0.17 H* (< 0.04) ng/mL - Impressions ITS Impressions Chest X-Ray 04/12/18 12:34 IMPRESSION: Subtle opacity identified in the right base. Finding is nonspecific and may represent infection, aspiration, or atelectasis. Recommend following to resolution. Cardiomegaly. Status post CABG. COPD. D/ / 04/12/2018 13:54:54 Violeta Holder MD / [facility] Interpreting Provider: Violeta Holder MD Chest CTA 11/06/18 14:25 IMPRESSION: 1. No acute pulmonary embolus. 2. No acute abnormality in the chest. Status post CABG. 3. Moderate emphysema. D/ / 04/12/2018 15:51:50 Odell Cleveland MD / [facility] Interpreting Provider: Odell Cleveland MD - Assessment and plan (1) Elevated troponin Current Visit: Yes Status: Acute Assessment and plan: Pt presents with the cc of dizziness. He states that he was driving today and felt like everything blurred out and there was a giant white halo - he regained his positioning and felt his vision come back - has an extensive cardiac hx, including 8 bypasses and multiple stents YARY score of 6, pt is very high risk for adverse outcomes - Last ECHO in 2016 showed an LVEF of 35% - EKG showed prolonged TX interval, LVH, old infarcts, prolonged QT interval with a QTc of [address] elevation - type I vs type II PA: ACS vs demand ischemia CT scan negative for PE CXR - Subtle opacity identified in the right base; may represent infection, aspiration, or atelectasis. - cardiomegaly , s/p CABG Plan: - cardio consulted - heparin drip started - troponin x3 - telemetry monitoring - CBC, BMP in the AM - cardiac diet for dinner, NPO at midnight - ECHO pending - continue home meds including ASA, plavix, cozaar, lipitor, lopressor, imdur - pt is on a type 1b antiarrythmic and ranexa - plan for [facility] cath tomorrow with cardiology, pt needs ICD defibrillator to be looked at - 50cc/hr 0.9% NS - strict I&O, fluid restriction diet of 1.5L - dispo: cardiology workup (2) Near syncope Current Visit: Yes Status: Acute Assessment and plan: See plan as above for elevated troponins (3) CAD (coronary artery disease) Current Visit: No Status: Chronic Assessment and plan: Chronic - on ASA, lipitor, plavix, cozaar, lopressor - continue home meds Qualifiers: Coronary Disease-Associated Artery/Lesion type: bypass graft [place] vs. transplanted heart: nond[place] heart Associated angina: without angina Qualified Code(s): I25.810 - Atherosclerosis of coronary artery bypass graft(s) without angina pectoris (4) COPD (chronic obstructive pulmonary disease) Current Visit: No Status: Chronic Assessment and plan: NOT in acute exacerbation - continue spiriva Qualifiers: COPD type: emphysema Emphysema type: panlobular Qualified Code(s): J43.1 - Panlobular emphysema (5) HTN (hypertension) Current Visit: No Status: Chronic Assessment and plan: Chronic - on lopressor, cozaar - BP 106/72 - well controlled - continue home meds Qualifiers: Hypertension type: essential hypertension Qualified Code(s): I10 - Essential (primary) hypertension (6) HLD (hyperlipidemia) Current Visit: No Status: Chronic Assessment and plan: On lipitor - chronic - continue home med Qualifiers: Hyperlipidemia type: unspecified Qualified Code(s): E78.5 - Hyperlipidemia, unspecified (7) DVT prophylaxis Current Visit: Yes Status: Acute Assessment and plan: heparin drip (8) Acute on chronic systolic (congestive) heart failure Current Visit: Yes Status: Acute Assessment and plan: See plan as above for elevated troponin (9) Presence of cardiac defibrillator Current Visit: No Status: Chronic Assessment and plan: See plan as above for elevated troponin (10) Anxiety Current Visit: No Status: Chronic Assessment and plan: diazepam 5mg TID - continue home med (11) NIDHI (acute kidney injury) Current Visit: Yes Status: Acute Assessment and plan: Creatinine of 1.46 - baseline of ~1 - gentle hydration 50cc/hr NS as above - avoid nephrotoxins - strict I&O, fluid restriction 1.5 L - Time Spent With Patient Total time spent is greater than 50% in coordination of care (as documented) at patient's floor/unit and/or counseling patient: <Alexsandra Fraire - Last Filed: 04/12/18 17:49> Date of Encounter: 04/12/18 Internal Medicine - H&P: HPI History of present illness: Mr. West is a 68 year old male All Systems PM: A 10-system review of systems was performed and is negative for pertinent findings except as documented above in the HPI. - Constitutional Vitals: Pulse Resp BP Pulse Ox 88 16 106/72 97 04/12/18 16:08 04/12/18 16:08 04/12/18 16:08 04/12/18 16:08 Internal Med - H&P Results - Labs CBC & Chem 7: 04/12/18 17:17 04/12/18 13:03 Labs: Short CBC 04/12/18 04/12/18 Range/Units 13:03 17:17 WBC 10.0 9.5 (4.3-11.1) K/mcL Hgb 15.0 15.8 (12.9-16.9) g/dL Hct 43.8 46.9 (37.5-50.1) % Plt Count 132 L 134 L (140-400) K/mcL Neutrophils # 8.4 7.6 (1.6-8.9) K/mcL BMP 04/12/18 13:03 Sodium 131 L Potassium 4.5 Chloride 99 Carbon Dioxide 25 BUN 31 H Creatinine 1.46 H Glucose 119 H Calcium 9.3 Cardiac Enzymes 04/12/18 Range/Units 13:03 Troponin I 0.17 H* (< 0.04) ng/mL - Impressions ITS Impressions Chest X-Ray 04/12/18 12:34 IMPRESSION: Subtle opacity identified in the right base. Finding is nonspecific and may represent infection, aspiration, or atelectasis. Recommend following to resolution. Cardiomegaly. Status post CABG. COPD. D/ / 04/12/2018 13:54:54 Violeta Holder MD / [facility] Interpreting Provider: Violeta Holder MD Chest CTA 04/12/18 14:25 IMPRESSION: 1. No acute pulmonary embolus. 2. No acute abnormality in the chest. Status post CABG. 3. Moderate emphysema. D/ / 04/12/2018 15:51:50 Odell Cleveland MD / [facility] Interpreting Provider: Odell Cleveland MD - Assessment and plan (1) CAD (coronary artery disease) Current Visit: No Status: Chronic Qualifiers: Coronary Disease-Associated Artery/Lesion type: bypass graft [place] vs. transplanted heart: nond[place] heart Associated angina: without angina Qualified Code(s): I25.810 - Atherosclerosis of coronary artery bypass graft(s) without angina pectoris (2) COPD (chronic obstructive pulmonary disease) Current Visit: No Status: Chronic Qualifiers: COPD type: emphysema Emphysema type: panlobular Qualified Code(s): J43.1 - Panlobular emphysema (3) HTN (hypertension) Current Visit: No Status: Chronic Qualifiers: Hypertension type: essential hypertension Qualified Code(s): I10 - Essential (primary) hypertension (4) HLD (hyperlipidemia) Current Visit: No Status: Chronic Qualifiers: Hyperlipidemia type: unspecified Qualified Code(s): E78.5 - Hyperlipidemia, unspecified (5) DVT prophylaxis Current Visit: Yes Status: Acute (6) Acute on chronic systolic (congestive) heart failure Current Visit: Yes Status: Acute (7) Presence of cardiac defibrillator Current Visit: No Status: Chronic (8) Anxiety Current Visit: No Status: Chronic (9) Near syncope Current Visit: Yes Status: Acute (10) Elevated troponin Current Visit: Yes Status: Acute (11) NIDHI (acute kidney injury) Current Visit: Yes Status: Acute - Time Spent With Patient Total time spent is greater than 50% in coordination of care (as documented) at patient's floor/unit and/or counseling patient: - Attending Attestation I saw and assessed this patient and agree with plan per resident Plan Acute coronary syndrome/ NSTEMI. Patietn comes in with intermittent chest pain and syncopal episode and new elevated troponins. Will start on full anticoagulation. Continue aspirin/. Follow up 2D echo. cardiology recs appreciated NIDHI. Gentle hydration with IV fluids
[2018-04-12] MEDS ORDERED: 0.9 % Sodium Chloride 1,000 ML IVC SCH (17:15)
[2018-04-12] MEDS ORDERED: DIAZEPAM INTENSOL 5 MG/ML PO PRN (17:35)
[2018-04-12 17:36] LABS: Basophils # 0.1 K/mcL (0.0-0.2); Basophils % 0.5 %; Eosinophils # 0.1 K/mcL (0.0-0.6); Eosinophils % 0.9 %; Hematocrit 46.9 % (37.5-50.1); Hemoglobin 15.8 g/dL (12.9-16.9); Immature Granulocytes % 0.5 % (0-4); Lymphocytes # 1.2 K/mcL (0.6-4.6); Lymphocytes % 12.7 %; Mean Corpuscular HGB Conc 33.7 g/dL (31.6-35.5); Mean Corpuscular Hemoglobin 33.5 pg (28.0-33.3); Mean Corpuscular Volume 99.6 fL (83.0-100.0); Mean Platelet Volume 11.4 fL (9.4-12.4); Monocytes # 0.5 K/mcL (0.0-1.3); Monocytes % 5.6 %; Neutrophils # 7.6 K/mcL (1.6-8.9); Nucleated Red Blood Cells 0.3 /100 WBC (0); Platelet Count 134 K/mcL (140-400); Red Blood Count 4.71 M/mcL (4.19-5.50); Red Cell Distribution Width 13.4 % (11.5-14.5); Segmented Neutrophils % 79.8 %
[2018-04-12 17:46] LABS: INR 1.4; Prothrombin Time 15.8 Seconds (9.4-12.1)
[2018-04-12 17:49] LABS: Heparin anti-factor XA UFH 0.03 IU/mL (0.30-0.70)
[2018-04-12] MEDS: Ranolazine 500 MG TAB.ER.12H PO SCH (20:24)
[2018-04-12] MEDS: Heparin 25,000 UNIT/500 ML D5W 25,000 UNIT/500 ML BAG IVC SCH (20:25)
[2018-04-12] MEDS: Ipratropium/Albuterol Neb 3 ML IH SCH (20:58)
[2018-04-12] MEDS ORDERED: diazePAM 5 MG TABLET PO PRN (21:15)
[2018-04-13] MEDS: Ipratropium/Albuterol Neb 3 ML IH SCH ×3 (01:00→15:17)
[2018-04-13 03:27] LABS: Basophils # 0.1 K/mcL (0.0-0.2); Basophils % 0.6 %; Eosinophils # 0.3 K/mcL (0.0-0.6); Eosinophils % 3.3 %; Hematocrit 42.2 % (37.5-50.1); Hemoglobin 14.4 g/dL (12.9-16.9); Immature Granulocytes % 0.8 % (0-4); Lymphocytes # 1.9 K/mcL (0.6-4.6); Lymphocytes % 19.1 %; Mean Corpuscular HGB Conc 34.1 g/dL (31.6-35.5); Mean Corpuscular Volume 99.8 fL (83.0-100.0); Mean Platelet Volume 10.6 fL (9.4-12.4); Monocytes # 0.7 K/mcL (0.0-1.3); Monocytes % 7.4 %; Neutrophils # 6.7 K/mcL (1.6-8.9); Platelet Count 122 K/mcL (140-400); Red Blood Count 4.23 M/mcL (4.19-5.50); Red Cell Distribution Width 13.6 % (11.5-14.5); Segmented Neutrophils % 68.8 %
[2018-04-13 03:45] LABS: BUN/Creatinine Ratio 21 (6-26); Blood Urea Nitrogen 26 mg/dL (8-23); Calcium 8.6 mg/dL (8.6-10.3); Carbon Dioxide 20 mEq/L (23-29); Chloride 104 mEq/L (98-107); Glucose 128 mg/dL (70-105); Osmolality,Calculated 284 (280-300); Potassium 3.8 mEq/L (3.5-5.1); Sodium 134 mEq/L (136-145); eGFR For Non-African Americans 57 (> 60)
[2018-04-13] MEDS ORDERED: 0.9 % Sodium Chloride 1,000 ML IVC SCH (04:30)
--- NOTE | 2018-04-13 08:58 | Internal Med Progress Note ---
<LyonChadwick S - Last Filed: 04/13/18 13:40> Hospitalist Progress Note - Encounter Date of Encounter: 04/13/18 Time of Encounter: 08:56 - Subjective Interval History: Mr. West is a 68 year old male with PMH of COPD on 4L o2, CAD, HTN, anxiety, and s/p CABG x 8, he has a pacemaker. Pt has c/o increased weakness from baseline and increased SOB from baseline. He has c/o SOB with any activity but this morning it was much worse. He was coming into town this morning and while in the car had an episode where he "saw completely white" and then had intermittent blurry and double vision. He has an extensive cardiac hx including 8 bypasses, multiple heart attacks, a pacemaker and multiple stents. Last stent was in 2017. He says that this isn't like his last heart attack, other than some nausea in the morning. The pt reports that he has not had any palpiltations, no active chest pain at the time. He has chronic SOB. He denies any active nausea, no vomtiing, no diarrhea. The pt reports that there was NO chest pain at all associated with this episode. The pt had an initial troponin of 0.17 in the ED. CXR negative for acute cardiopulmonary process. CT scan negative for pulmonary embolism. The pt is seen and examined at bedside. He has no complaints or concerns at this time. - no active chest pain - SOB at baseline - no n/v/d - no abd pain - is with the pt in bed and voices understanding about the plan - Exam Vitals: Temp Pulse Resp BP Pulse Ox 97.8 F 76 21 105/67 92 04/13/18 06:41 04/13/18 06:41 04/13/18 06:41 04/13/18 06:41 04/13/18 06:41 Exam: General - aox3, no acute distress, laying in bed heent - ncat, mucous membranes moist cardio - rrr, s1s2, cta, no mrg lungs - ctab, no wheeze/rhonchi/rales abd - obese, ntnd, no rebound or guarding skin - no rash, no edema msk - normal inspection psych - appropriate mood/affect neuro - no fnd, sensation intact - Assessment and Plan (1) Elevated troponin Current Visit: Yes Status: Acute Assessment and Plan: Pt presents with the cc of dizziness. He states that he was driving today and felt like everything blurred out and there was a giant white halo - he regained his positioning and felt his vision come back - has an extensive cardiac hx, including 8 bypasses and multiple stents YARY score of 6, pt is very high risk for adverse outcomes - Last ECHO in 2017 showed an LVEF of 35% - EKG showed prolonged SD interval, LVH, old infarcts, prolonged QT interval with a QTc of [address] elevation - type I vs type II IL: ACS vs demand ischemia CT scan negative for PE CXR - Subtle opacity identified in the right base; may represent infection, aspiration, or atelectasis. - cardiomegaly , s/p CABG Repeat troponins 0.17, 0.15 Plan: - cardio consulted, to see this morning - heparin drip started - telemetry monitoring - CBC, BMP in the AM - NPO currently in case of need for intervention - ECHO pending - continue home meds including ASA, plavix, cozaar, lipitor, lopressor, imdur - pt is on a type 1b antiarrythmic and ranexa - cardiology to do device check today - 50cc/hr 0.9% NS discontinued - strict I&O, fluid restriction diet of 1.5L - dispo: cardiology workup (2) Near syncope Current Visit: Yes Status: Acute Assessment and Plan: See plan as above for elevated troponins (3) CAD (coronary artery disease) Current Visit: No Status: Chronic Assessment and Plan: Chronic - on ASA, lipitor, plavix, cozaar, lopressor - continue home meds (4) COPD (chronic obstructive pulmonary disease) Current Visit: No Status: Chronic Assessment and Plan: NOT in acute exacerbation - continue spiriva (5) HTN (hypertension) Current Visit: No Status: Chronic Assessment and Plan: Chronic - on lopressor, cozaar - well controlled - continue home meds (6) HLD (hyperlipidemia) Current Visit: No Status: Chronic Assessment and Plan: On lipitor - chronic - continue home med (7) DVT prophylaxis Current Visit: Yes Status: Acute Assessment and Plan: heparin drip (8) Acute on chronic systolic (congestive) heart failure Current Visit: Yes Status: Acute Assessment and Plan: See plan as above for elevated troponin (9) Presence of cardiac defibrillator Current Visit: No Status: Chronic Assessment and Plan: See plan as above for elevated troponin (10) Anxiety Current Visit: No Status: Chronic Assessment and Plan: diazepam 5mg TID - continue home med (11) NIDHI (acute kidney injury) Current Visit: Yes Status: Resolved Assessment and Plan: Likely pre-renal in etiology, resolving Creatinine of 1.46 on admission, improved to 1.25 this morning - baseline of ~1 - gentle hydration 50cc/hr NS as above improved renal fxn, fluids d/c - avoid nephrotoxins - strict I&O, fluid restriction 1.5 L - Time Spent with Patient Total time spent is greater than 50% in coordination of care (as documented) at patient's floor/unit and/or counseling patient: less than 15 minutes Plan of Care Discussed with: patient Internal Medicine: Result - Labs CBC & Chem 7: 04/13/18 02:59 04/13/18 02:59 Labs: Short CBC 04/12/18 04/12/18 04/13/18 Range/Units 13:03 17:17 02:59 WBC 10.0 9.5 9.7 (4.3-11.1) K/mcL Hgb 15.0 15.8 14.4 (12.9-16.9) g/dL Hct 43.8 46.9 42.2 (37.5-50.1) % Plt Count 132 L 134 L 122 L (140-400) K/mcL Neutrophils # 8.4 7.6 6.7 (1.6-8.9) K/mcL BMP 04/12/18 04/13/18 13:03 02:59 Sodium 131 L 134 L Potassium 4.5 3.8 Chloride 99 104 Carbon Dioxide 25 20 L BUN 31 H 26 H Creatinine 1.46 H 1.25 Glucose 119 H 128 H Calcium 9.3 8.6 Cardiac Enzymes 04/12/18 04/12/18 04/12/18 Range/Units 13:03 17:17 22:27 Troponin I 0.17 H* 0.17 H* 0.15 H* (< 0.04) ng/mL - ABG Interpretation ABG results: PT/INR, D-dimer PT 15.8 Seconds (9.4-12.1) H 04/12/18 17:17 - Impressions Impressions Chest X-Ray 04/12/18 12:34 IMPRESSION: Subtle opacity identified in the right base. Finding is nonspecific and may represent infection, aspiration, or atelectasis. Recommend following to resolution. Cardiomegaly. Status post CABG. COPD. D/ / 04/12/2018 13:54:54 Violeta Holder MD / angela Interpreting Provider: Violeta Holder MD Chest CTA 04/12/18 14:25 IMPRESSION: 1. No acute pulmonary embolus. 2. No acute abnormality in the chest. Status post CABG. 3. Moderate emphysema. D/ / 04/12/2018 15:51:50 Odell Cleveland MD / Dolores Cisneros Interpreting Provider: Odell Cleveland MD Consult Discharge Plan - Plan Referrals: Jani Slaughter MD [Primary Care Provider] - <Alexsandra Fraire - Last Filed: 04/13/18 14:49> Hospitalist Progress Note - Encounter Date of Encounter: 04/13/18 - Exam Vitals: Temp Pulse Resp BP Pulse Ox 97.6 F 75 19 101/75 90 04/13/18 11:07 04/13/18 11:07 04/13/18 11:07 04/13/18 11:07 04/13/18 11:07 - Assessment and Plan (1) CAD (coronary artery disease) Current Visit: No Status: Chronic (2) COPD (chronic obstructive pulmonary disease) Current Visit: No Status: Chronic (3) HTN (hypertension) Current Visit: No Status: Chronic (4) HLD (hyperlipidemia) Current Visit: No Status: Chronic (5) DVT prophylaxis Current Visit: Yes Status: Acute (6) Acute on chronic systolic (congestive) heart failure Current Visit: Yes Status: Acute (7) Presence of cardiac defibrillator Current Visit: No Status: Chronic (8) Anxiety Current Visit: No Status: Chronic (9) Near syncope Current Visit: Yes Status: Acute (10) Elevated troponin Current Visit: Yes Status: Acute (11) NIDHI (acute kidney injury) Current Visit: Yes Status: Resolved - Time Spent with Patient Total time spent is greater than 50% in coordination of care (as documented) at patient's floor/unit and/or counseling patient: Internal Medicine: Result - Labs CBC & Chem 7: 04/13/18 02:59 04/13/18 02:59 Labs: Short CBC 04/12/18 04/13/18 Range/Units 17:17 02:59 WBC 9.5 9.7 (4.3-11.1) K/mcL Hgb 15.8 14.4 (12.9-16.9) g/dL Hct 46.9 42.2 (37.5-50.1) % Plt Count 134 L 122 L (140-400) K/mcL Neutrophils # 7.6 6.7 (1.6-8.9) K/mcL BMP 04/13/18 02:59 Sodium 134 L Potassium 3.8 Chloride 104 Carbon Dioxide 20 L BUN 26 H Creatinine 1.25 Glucose 128 H Calcium 8.6 Cardiac Enzymes 04/12/18 04/12/18 Range/Units 17:17 22:27 Troponin I 0.17 H* 0.15 H* (< 0.04) ng/mL - ABG Interpretation ABG results: PT/INR, D-dimer PT 15.8 Seconds (9.4-12.1) H 04/12/18 17:17 - Impressions Impressions Chest X-Ray 04/12/18 12:34 IMPRESSION: Subtle opacity identified in the right base. Finding is nonspecific and may represent infection, aspiration, or atelectasis. Recommend following to resolution. Cardiomegaly. Status post CABG. COPD. D/ / 04/12/2018 13:54:54 Violeta Holder MD / angela Interpreting Provider: Violeta Holder MD Chest CTA 04/12/18 14:25 IMPRESSION: 1. No acute pulmonary embolus. 2. No acute abnormality in the chest. Status post CABG. 3. Moderate emphysema. D/ / 04/12/2018 15:51:50 Odell Cleveland MD / Dolores Cisneros Interpreting Provider: Odell Cleveland MD - Attending Attestation I saw and assessed this patient and I agree with plan per resident as above Plan Acute on chronic systolic CHF. On lasix BID Chronic respiratory failure 2/2 to COPD. No acute exacerbation. Nebs PRN. Oxygen supplementation as needed Elevated troponins. Repeat 2D echo, continue heparin drip <Chadwick Lyon - Last Filed: 04/13/18 13:40> (3) CAD (coronary artery disease) Qualifiers: Coronary Disease-Associated Artery/Lesion type: unspecified vessel or lesion type [place] vs. transplanted heart: [place] heart Associated angina: without angina Qualified Code(s): I25.10 - Atherosclerotic heart disease of [place] coronary artery without angina pectoris (4) COPD (chronic obstructive pulmonary disease) Qualifiers: COPD type: emphysema Emphysema type: panlobular Qualified Code(s): J43.1 - Panlobular emphysema (5) HTN (hypertension) Qualifiers: Hypertension type: essential hypertension Qualified Code(s): I10 - Essential (primary) hypertension (6) HLD (hyperlipidemia) Qualifiers: Hyperlipidemia type: unspecified Qualified Code(s): E78.5 - Hyperlipidemia, unspecified <Folaranmi,Supo A - Last Filed: 04/13/18 14:49> (1) CAD (coronary artery disease) Qualifiers: Coronary Disease-Associated Artery/Lesion type: unspecified vessel or lesion type [place] vs. transplanted heart: [place] heart Associated angina: without angina Qualified Code(s): I25.10 - Atherosclerotic heart disease of [place] coronary artery without angina pectoris (2) COPD (chronic obstructive pulmonary disease) Qualifiers: COPD type: emphysema Emphysema type: panlobular Qualified Code(s): J43.1 - Panlobular emphysema (3) HTN (hypertension) Qualifiers: Hypertension type: essential hypertension Qualified Code(s): I10 - Essential (primary) hypertension (4) HLD (hyperlipidemia) Qualifiers: Hyperlipidemia type: unspecified Qualified Code(s): E78.5 - Hyperlipidemia, unspecified
--- NOTE | 2018-04-13 09:20 | Cardiology Consult Note ---
Addendum entered and electronically signed by Luís Zimmerman DO 04/13/18 13:23: I have personally performed a face to face evaluation on this patient. I have reviewed and agree with the care plan. History and Exam by me shows: Patient independently seen and examined. Describes at least 2 episodes of confusion during periods of hypoxia. Admits that he removes oxygen at times to do things outside. Denies specific chest pain or discomfort. Does not restrict sodium intake. Does not adhere to a fluid restricted diet. [place] CAD Ischemic cardiomyopathy Prior ICD placement Previous VT now on mexiletine [place], adynamic troponin I elevation. Presentation is not consistent with ACS. Agree with repeat TTE. Continue to direct and medical therapy. Change to long-acting beta jazmín. Monitor blood pressure. Noted to be relatively low, which is not unexpected given his LV dysfunction. If necessary, we can make adjustments to his medications. CHF education provided. Need to assess oxygen requirements with activity. Despite supplemental oxygen, patient did not lose his oxygen saturation is decreasing with activity. Thanks, Luís Zimmerman DO, [facility] Original Note: Date of Encounter: 04/13/18 Time of Encounter: 08:30 Assessment and Plan (1) Acute on chronic systolic (congestive) heart failure Current Visit: Yes Status: Acute Per cardiology: -Reports NYHA class III symptoms. -Reports non-compliance with diet/fluid restrictions. -Reports increased abdominal girth, states thats where he always holds fluid. -BNP 727. -Chest CT with no acute pulmonary abnormality. -Known ICM with last known LVEF 35% global and segmental LV systolic dysfunction 01/2017. Repeat TTE pending. -ON ARB, BB (on lopressor per primary general superintendent due to worsening pulmonar status with carvedilol). -Was on lasix 60mg BID in outpatient setting. Of note, mild NIDHI noted on admission, improved today. -Agree with repeat TTE. -Will add low dose of oral lasix. -Will switch lopressor to toprol starting tomorrow. (2) Near syncope Current Visit: Yes Status: Acute Per cardiology: -Reports near syncopal event yesterday around 1100. - reports lips turning blue at that time. -Has AICD. -Device check today with no events or arrythmias. -Concern for hypoxia due to blue lips and known pulmonary disease. -Recommend assessing oxygen status with exertion. Consider 6 minute walk test. (3) Elevated troponin Current Visit: Yes Status: Acute Per cardiology: -Troponins 0.17, 0.17, 0.15 in the setting of NIDHI, CHF, ?hypoxia. -Denies chest pain, reports chest pain was previous angina. -No acute ECG changes. -TTE pending. -Known CAD. -On asa, statin, plavix, BB, heparin drip, imdur, ranexa. -Troponins flat and adynamic in the setting of above. Suspect demand ischemia. -Further recommendations pending TTE. (4) NIDHI (acute kidney injury) Current Visit: Yes Status: Resolved Per cardiology: -Mild NIDHI noted on admission. -Now renal function improved. -Management per primary service. (5) CAD (coronary artery disease) Current Visit: No Status: Chronic Per cardiology: -Known severe CAD. Previous CABG and re-do CABG. Has had multiple PCIs. -Last [facility] 01/2017 with--severe atherosclerotic CAD. Severe 3 vessel CAD. Severe LV dysfunction EF 10-15%, dilated. S/P CABG 2 of 2 patent bypass grafts. Coronaries appear essentially unchanged since previous cath with patent left m ain stent, LCx severe stenosis (as previously stated from last PCI at [facility]) Left system ipsilateral and contralateral collaterals. -See plan above. Qualifiers: Coronary Disease-Associated Artery/Lesion type: unspecified vessel or lesion type [place] vs. transplanted heart: [place] heart Associated angina: without angina Qualified Code(s): I25.10 - Atherosclerotic heart disease of [place] c oronary artery without angina pectoris (6) Presence of cardiac defibrillator Current Visit: No Status: Chronic Per cardiology: -Has AICD, medtronic. -Device interrogated today with normal functioning, no arrythmias detected. Billie PRESTON. Follows with [facility]. -Previous history of VT, on mexilitine. No VT noted. Discussion w patient/family: The assessment and plan as outlined above was discussed with the patient and/or family members who expressed understanding and agreement. All questions were answered. Thank you for involving us in the care of your patient. Please call with any questions. Discussed and reviewed with . History of Present Illness Consult date: 04/12/18 Requesting physician: Chadwick Lyon Consult reason: elevated troponin, cardiomyopathy Chief complaint: shortness of breath, near syncopal event History of present illness: Mr. West is a 68 year old male with a relevant past medical history of CAD s/p CABG and re-do CABG, multiple PCI, NC, ICM, AICD, non-sustained VT, HLD, HTN, anxiety, hepatitis C, COPD O2 dependent, tobacco abuse who presented to [facility] with complaints of vision disturbances. Patient states he had walked to the car and was sitting down when he became very hot, dizzy, had vision disturbances, and felt like he was going to pass out. Per , patient's lips turned blue and he "was not acting right." Patient denies loss of consciousness. Patient reports he had a similar episode one week ago. Patient also reports increased abdominal girth, increased shortness of breath. Reports increased fatigue and dry cough for about one week. states patient has not been following his recommended diet. Patient denies chest pain. Patient reports with previous MIs, had chest pain. Past Med Surg Social Fam HX - Past Medical History Attestation: Yes The following information was validated with the patient. Source: patient, old records reviewed Medical history: cardiomyopathy, CHF, COPD, coronary artery disease, hyperlipidemia, hypertension, myocardial infarction, other Additional medical history: emphysema, hep c, sciatica, skeletal deteriation Psychiatric history: anxiety - Past Surgical History Surgical History: angioplasty/stent, coronary bypass (CABG), herniorrhaphy, pacemaker/AICD Additional surgical history: , HERNIA REPAIR OPEN HEART, PACEMAKER WITH DEFIB, gallbladder - Social History Smoking Status: Former smoker Smokeless Tobacco Status: No Alcohol use: none, rarely Drug use: none - Family History Mother Adopted: Yes Medications and Allergies Aspirin Enteric Coated [Aspirin EC] 162 mg PO DAILY 05/16/15 [History] Mexiletine [Mexitil] 150 mg PO Q8HR 30 Days 01/19/17 [Rx] Ranolazine [Ranexa] 1,000 mg PO BID 30 Days 01/19/17 [Rx] Acetylcysteine [Y-Rdcdts-h-Cysteine] 600 mg PO TID 04/12/18 [History] Albuterol Sulfate [Proair Hfa] 2 puff IH Q4H PRN 04/12/18 [History] Atorvastatin [Lipitor] 40 mg PO HS 04/12/18 [History] Clopidogrel [Plavix] 75 mg PO DAILY 04/12/18 [History] Ezetimibe [Zetia] 10 mg PO DAILY 04/12/18 [History] Fluticasone/Vilanterol [Breo Ellipta 100-25 Mcg INH] 1 puff IH QAM 04/12/18 [ History] Furosemide [Lasix] 80 mg PO BID 04/12/18 [History] Ipratropium/Albuterol Neb [Duoneb] 3 ml IH TID 04/12/18 [History] Isosorbide MONOnitrate (24 HR) [Imdur] 120 mg PO DAILY 04/12/18 [History] Losartan [Cozaar] 25 mg PO DAILY 04/12/18 [History] Metoprolol Tartrate [Lopressor] 50 mg PO BID 04/12/18 [History] OxyCODONE Immed Rel [Roxicodone 30 MG] 30 mg PO Q4H PRN 04/12/18 [History] Spironolactone [Aldactone] 50 mg PO DAILY 04/12/18 [History] Tiotropium [place] [Spiriva Respimat] 2 puff IH QAM 04/12/18 [History] diazePAM [Valium] 5 mg PO Q6H PRN 04/12/18 [History] Allergy/AdvReac Type Severity Reaction Status Date / Time No Known Allergies Allergy Verified 04/12/18 12:24 All Systems Review: The remainder of the systems were reviewed and are negative - Cardiovascular Cardiovascular: as per HPI, dyspnea on exertion, lightheadedness Physical Examination Vital Signs, Last 4 Hours Temp Pulse Resp BP Pulse Ox 04/13/18 06:41 97.8 F 76 21 105/67 92 04/13/18 05:25 102/66 General: Conversant, No Apparent Distress HEENT: Atraumatic, Normocephaly, Mucus Membranes Moist Neck: No JVD, Normal carotid pulses Cardiac: Reg Rate and Rhythm, Normal S1 and S2, No Murmur Lungs: Normal Breath Sounds, No Wheeze, Rales, Rhonchi Neuro: Alert and responsive, No focal deficits noted Abdomen: Non-Tender, Other (Firm) Skin: No rashes noted on visualized skin Musculoskeletal: No Chest Wall Tenderness Extremities: No Clubbing, No Cyanosis, No Edema, Normal Pulses Results 04/13/18 02:59 04/13/18 02:59 Lab Results 04/12/18 04/12/18 04/12/18 13:03 13:03 13:03 WBC 10.0 Hgb 15.0 Hct 43.8 Plt Count 132 L INR Sodium 131 L Potassium 4.5 Chloride 99 Carbon Dioxide 25 BUN 31 H Creatinine 1.46 H Glucose 119 H Calcium 9.3 Magnesium Troponin I 0.17 H* B-Natriuretic Peptide 727 H Impressions Chest X-Ray 04/12/18 12:34 IMPRESSION: Subtle opacity identified in the right base. Finding is nonspecific and may represent infection, aspiration, or atelectasis. Recommend following to resolution. Cardiomegaly. Status post CABG. COPD. D/ / 04/12/2018 13:54:54 Violeta Holder MD / angela Interpreting Provider: Violeta Holder MD Chest CTA 04/12/18 14:25 IMPRESSION: 1. No acute pulmonary embolus. 2. No acute abnormality in the chest. Status post CABG. 3. Moderate emphysema. D/ / 04/12/2018 15:51:50 Odell Cleveland MD / Dolores Cisneros Interpreting Provider: Odell Cleveland MD Active Medications Albuterol/Ipratropium (Duoneb) 3 ml IH TIDR JUVENTINO Stop: 10/12/18 21:01 Last Admin: 04/13/18 01:00 Dose: 3 ml Aspirin (Aspirin Ec) 162 mg PO DAILY JUVENTINO Stop: 10/13/18 09:01 Atorvastatin Calcium (Lipitor) 40 mg PO HS JUVENTINO Stop: 10/12/18 21:01 Last Admin: 04/12/18 20:24 Dose: 40 mg Clopidogrel Bisulfate (Plavix) 75 mg PO DAILY JUVENTINO Stop: 10/13/18 09:01 Diazepam (Valium) 5 mg PO TID PRN PRN Reason: Anxiety Stop: 10/12/18 17:36 Heparin Sodium (Porcine) (Heparin) 4,000 unit IVP Q6HR PRN PRN Reason: SEE COMMENTS Stop: 10/12/18 17:03 Heparin Sodium (Porcine) (Heparin) 2,000 unit IVP Q6H PRN PRN Reason: SEE COMMENTS Stop: 10/12/18 17:03 Heparin Sodium/Dextrose (Heparin 25,000 Unit/500 Ml D5w) 25,000 unit in 500 mls @ 20.031 mls/hr IVC .Q24H [facility]; Protocol Stop: 10/12/18 17:16 Last Titration: 04/13/18 04:04 Dose: 12 unit/kg/hr, 20.031 mls/hr Isosorbide Mononitrate (Imdur) 120 mg PO DAILY [facility] Stop: 10/13/18 09:01 Losartan Potassium (Cozaar) 25 mg PO DAILY [facility]; Protocol Stop: 10/13/18 09:01 Metoprolol Tartrate (Lopressor) 50 mg PO BID [facility] Stop: 10/12/18 21:01 Last Admin: 04/12/18 20:24 Dose: 50 mg Mexiletine HCl (Mexitil) 150 mg PO Q8H [facility] Stop: 10/12/18 23:01 Last Admin: 04/13/18 06:34 Dose: 150 mg Naloxone HCl (Narcan) 0.4 mg IVP Q2MIN PRN PRN Reason: SEE COMMENTS Stop: 10/12/18 16:55 Oxycodone HCl (Roxicodone) 30 mg PO Q4H PRN PRN Reason: Pain Ranolazine (Ranexa) 1,000 mg PO BID [facility] Stop: 10/12/18 21:01 Last Admin: 04/12/18 20:24 Dose: 1,000 mg Spironolactone (Aldactone) 50 mg PO DAILY [facility] Stop: 10/13/18 09:01 Laboratory Tests 04/12/18 04/12/18 04/12/18 13:03 13:03 17:17 Hgb Creatinine 1.46 H Troponin I 0.17 H* 0.17 H* B-Natriuretic Peptide 727 H 04/12/18 04/13/18 04/13/18 22:27 02:59 02:59 Hgb 14.4 Creatinine 1.25 Troponin I 0.15 H* B-Natriuretic Peptide - Imaging and Cardiology Chest Xray: report reviewed Echo: report reviewed Cardiac cath: report reviewed - EKG Interpretation EKG results cardiology: personally reviewed (ECG with SR, HR 64. RBBB. Prolonged QT/QTc noted. T wave abnormalities noted, similar to baseline.), other (Telemetry reviewed with average HR previous 12 hours noted to be 73, SR. PVCs, PACs noted) Consult Discharge Plan - Plan Referrals: Jani Slaughter MD [Primary Care Provider] -
[2018-04-13] MEDS: Aspirin Enteric Coated 81 MG Tablet PO SCH (10:41)
[2018-04-13] MEDS: Isosorbide MONOnitrate (24 HR) 60 MG TAB.ER.24H PO SCH (10:42)
[2018-04-13] MEDS: Ranolazine 500 MG TAB.ER.12H PO SCH ×2 (10:42→20:45)
[2018-04-13] MEDS: Furosemide 40 MG TABLET PO SCH (17:05)
[2018-04-13] MEDS: Heparin 25,000 UNIT/500 ML D5W 25,000 UNIT/500 ML BAG IVC SCH (20:46)
--- NOTE | 2018-04-13 20:50 | Electrocardiograph Report ---
[place] [facility] Test Date: 2018-04-12 Pat Name: Eric West Department: [id number] Room: [id number] Gender: M Compounding Assistant: : [id number] Requested By: Darinel Wilson Order Number: [id number] Reading MD: Marco Quezada Measurements Intervals [place] Rate: 64 P: 88 [place]: 321 QRS: -60 QRSD: 178 T: 118 QT: 533 QTc: 550 Interpretive Statements Sinus rhythm Prolonged [place] interval IVCD, consider atypical RBBB LVH with IVCD, LAD and secondary repol abnrm Inferior infarct, acute Lateral leads are also involved Prolonged QT interval Electronically Signed On 04-13-2018 20:48:55 EST by Marco Quezada
[2018-04-14] MEDS: Ipratropium/Albuterol Neb 3 ML IH SCH ×3 (01:07→15:35)
[2018-04-14 04:13] LABS: Basophils # 0.1 K/mcL (0.0-0.2); Eosinophils # 0.4 K/mcL (0.0-0.6); Hematocrit 43.2 % (37.5-50.1); Hemoglobin 14.7 g/dL (12.9-16.9); Immature Granulocytes % 1.1 % (0-4); Lymphocytes # 1.9 K/mcL (0.6-4.6); Lymphocytes % 18.5 %; Mean Corpuscular Hemoglobin 34.6 pg (28.0-33.3); Mean Corpuscular Volume 101.6 fL (83.0-100.0); Mean Platelet Volume 11.6 fL (9.4-12.4); Monocytes # 0.8 K/mcL (0.0-1.3); Monocytes % 7.8 %; Neutrophils # 6.9 K/mcL (1.6-8.9); Nucleated Red Blood Cells 0.2 /100 WBC (0); Platelet Count 140 K/mcL (140-400); Red Blood Count 4.25 M/mcL (4.19-5.50); Red Cell Distribution Width 13.9 % (11.5-14.5); Segmented Neutrophils % 67.6 %
[2018-04-14 05:56] LABS: BUN/Creatinine Ratio 17 (6-26); Blood Urea Nitrogen 20 mg/dL (8-23); Carbon Dioxide 17 mEq/L (23-29); Chloride 107 mEq/L (98-107); Glucose 123 mg/dL (70-105); Osmolality,Calculated 278 (280-300); Potassium 5.2 mEq/L (3.5-5.1); Sodium 132 mEq/L (136-145); eGFR For Non-African Americans > 60 (> 60)
--- NOTE | 2018-04-14 07:36 | Internal Med Progress Note ---
Hospitalist Progress Note - Encounter Date of Encounter: 04/14/18 Time of Encounter: 07:36 - Exam Vitals: Temp Pulse Resp BP Pulse Ox 97.9 F 77 18 100/67 95 04/14/18 06:53 04/14/18 06:53 04/14/18 06:53 04/14/18 06:53 04/14/18 06:53 Exam: GEN: HEENT: CARDIO: RESP: ABD: NEURO: EXT: - Time Spent with Patient Total time spent is greater than 50% in coordination of care (as documented) at patient's floor/unit and/or counseling patient: Internal Medicine: Result - Labs CBC & Chem 7: 04/14/18 02:59 04/14/18 05:21 Labs: Short CBC 04/14/18 Range/Units 02:59 WBC 10.2 (4.3-11.1) K/mcL Hgb 14.7 (12.9-16.9) g/dL Hct 43.2 (37.5-50.1) % Plt Count 140 (140-400) K/mcL Neutrophils # 6.9 (1.6-8.9) K/mcL BMP 04/14/18 05:21 Sodium 132 L Potassium 5.2 H Chloride 107 Carbon Dioxide 17 L BUN 20 Creatinine 1.15 Glucose 123 H Calcium 9.0 - ABG Interpretation ABG results: PT/INR, D-dimer PT 15.8 Seconds (9.4-12.1) H 04/12/18 17:17 - Impressions Impressions Chest CTA 04/12/18 14:25 IMPRESSION: 1. No acute pulmonary embolus. 2. No acute abnormality in the chest. Status post CABG. 3. Moderate emphysema. D/ / 04/12/2018 15:51:50 Odell Cleveland MD / Dolores maldonado Interpreting Provider: Odell Cleveland MD Echocardiogram 04/13/18 08:00 Impressions: LVEF 30-35%. Moderately dilated left ventricle. Mild left ventricular diastolic dysfunction. Atypical septal motion consistent with post-operative status. LV apex not adequately visualized. Please obtain limited study with imaging enhancement Normal right ventricular structure and function. Trace tricuspid regurgitation. No evidence of pulmonary hypertension. A device lead was visualized in the right atrium and right ventricle. Left Ventricular Wall Motion: Rest Echo Findings The apical inferior, mid inferior, basal inferior, apical anterior, mid anterior, basal anterior, apical septal, mid inferior septal, basal inferior septal, apical lateral, mid anterior lateral, basal anterior lateral, mid anterior septal, mid inferior lateral, basal anterior septal and basal inferior lateral portillo were hypokinetic. The apex wall was not visualized. Findings: Study Quality * Technically sub-optimal due to body habitus. ECG Findings * Paced rhythm. Left Ventricle * LVEF 30-35%. * Moderately dilated left ventricle. * Mild left ventricular diastolic dysfunction. * Atypical septal motion consistent with post-operative status. * LV apex not adequately visualized. Please obtain limited study with imaging enhancement Right Ventricle * Normal right ventricular structure and function. Left Atrium * Normal left atrial size. Right Atrium * Normal right atrial size. Aortic Valve * Trileaflet aortic valve. * Normal aortic valve structure. * No aortic regurgitation. * No aortic stenosis. Mitral Valve * Normal mitral valve structure. * No mitral stenosis. * Trace mitral regurgitation. Tricuspid Valve * Normal tricuspid valve structure. * Trace tricuspid regurgitation. * No evidence of pulmonary hypertension. * No tricuspid stenosis. Pulmonic Valve * Pulmonic valve is not well visualized. Aorta * Normally sized aortic root. Pericardium * The pericardium appears normal. IVC * Normal IVC dimensions and inspiratory collapse. Device lead * A device lead was visualized in the right atrium and right ventricle. Pulmonary Artery * Normal visualized portions of the main pulmonary artery. Consult Discharge Plan - Plan Referrals: Jani Slaughter MD [Primary Care Provider] -
[2018-04-14] MEDS ORDERED: Metoprolol XL (24 HR) Succ 50 MG TAB.ER.24H PO SCH (09:00)
[2018-04-14] MEDS: Furosemide 40 MG TABLET PO SCH (10:21)
[2018-04-14] MEDS: Aspirin Enteric Coated 81 MG Tablet PO SCH (10:22)
[2018-04-14] MEDS: Isosorbide MONOnitrate (24 HR) 60 MG TAB.ER.24H PO SCH (10:22)
[2018-04-14] MEDS: Ranolazine 500 MG TAB.ER.12H PO SCH (10:22)
[2018-04-14 11:03] VITALS: BP 89/61
--- NOTE | 2018-04-14 11:21 | Cardiology Progress Note ---
Date of Encounter: 04/14/18 Time of Encounter: 11:00 Assessment and Plan (1) Acute on chronic systolic (congestive) heart failure Current Visit: Yes Status: Acute Per cardiology: -Reports NYHA class III symptoms. -Reports non-compliance with diet/fluid restrictions. -Reports increased abdominal girth, states thats where he always holds fluid. -BNP 727. -Chest CT with no acute pulmonary abnormality. -Known ICM with last known LVEF 35% global and segmental LV systolic dysfunction 01/2017. Repeat TTE unchanged. -Continue low dose oral lasix, continue Toprol XL in the outpatient setting. -Emphasis placed on the importance of CHF adherence including Na/fluid restricted diet. -No further inpt recommendations, has outpatient appt with Dr. Cisneros scheduled. (2) Elevated troponin Current Visit: Yes Status: Acute Per cardiology: -Troponins 0.17, 0.17, 0.15 in the setting of NIDHI, CHF, ?hypoxia. -Denies chest pain, reports chest pain was previous angina. -No acute ECG changes. -TTE pending. -Known CAD. -On asa, statin, plavix, BB, heparin drip, imdur, ranexa. -Troponins flat and adynamic in the setting of above. Suspect demand ischemia. -EF unchanged on current echo. (3) Near syncope Current Visit: Yes Status: Acute Per cardiology: -Do not suspect cardiac in etiology -Reports near syncopal event yesterday around 1100. - reports lips turning blue at that time. -Has AICD. -Device check today with no events or arrythmias. -Concern for hypoxia due to blue lips and known pulmonary disease. -Recommend assessing oxygen status with exertion. Consider 6 minute walk test. (4) NIDHI (acute kidney injury) Current Visit: Yes Status: Resolved Per cardiology: -Mild NIDHI noted on admission. -Now renal function improved. -Management per primary service. (5) Presence of cardiac defibrillator Current Visit: No Status: Chronic Per cardiology: -Has AICD, medtronic. -Device interrogated today with normal functioning, no arrythmias detected. N earing MOHAN. Follows with [facility]. -Previous history of VT, on mexilitine. No VT noted. Discussion w patient/family: The assessment and plan as outlined above was discussed with the patient and/or family members who expressed understanding and agreement. All questions were answered. Thank you for involving us in the care of your patient. Please call with any questions. The patient will be discussed and reviewed with Dr. Quinonez; changes to be made accordingly. Subjective Principal diagnosis: Near syncope Interval history: Seen and examined. No complaints upon exam today. No chest pain/discomfort reported. Breathing at baseline, gut distention improved. Objective Vital Signs, Last 4 Hours Temp Pulse Resp BP BP BP BP 04/14/18 11: 98.1 F 88 18 89/61 04/14/18 10:15 04/14/18 10:01 96/64 96/65 107/71 04/14/18 08:13 16 Pulse Ox 04/14/18 11:01 93 04/14/18 10:15 91 04/14/18 10:01 04/14/18 08:13 93 General: Conversant, No Apparent Distress, Other (on o2) HEENT: Atraumatic, Normocephaly Cardiac: Reg Rate and Rhythm, Normal S1 and S2 Lungs: Normal Breath Sounds Neuro: Alert and responsive Abdomen: Other (large, soft) Skin: No rashes noted on visualized skin Musculoskeletal: No Chest Wall Tenderness Extremities: No Edema, Normal Pulses Results 04/14/18 02:59 04/14/18 05:21 Lab Results 04/14/18 04/14/18 02:59 05:21 WBC 10.2 Hgb 14.7 Hct 43.2 Plt Count 140 Sodium 132 L Potassium 5.2 H Chloride 107 Carbon Dioxide 17 L BUN 20 Creatinine 1.15 Glucose 123 H Calcium 9.0 Active Medications Albuterol/Ipratropium (Duoneb) 3 ml IH TIDR JUVENTINO Stop: 10/12/18 21:01 Last Admin: 04/14/18 08:13 Dose: 3 ml Aspirin (Aspirin Ec) 162 mg PO DAILY JUVENTINO Stop: 10/13/18 09:01 Last Admin: 04/14/18 10:22 Dose: 162 mg Atorvastatin Calcium (Lipitor) 40 mg PO HS JUVENTINO Stop: 10/12/18 21:01 Last Admin: 04/13/18 20:45 Dose: 40 mg Clopidogrel Bisulfate (Plavix) 75 mg PO DAILY JUVENTINO Stop: 10/13/18 09:01 Last Admin: 04/14/18 10:22 Dose: 75 mg Diazepam (Valium) 5 mg PO TID PRN PRN Reason: Anxiety Stop: 10/12/18 17:36 Furosemide (Lasix) 40 mg PO BIDDIURETIC JUVENTINO Stop: 10/13/18 17:01 Last Admin: 04/14/18 10:21 Dose: 40 mg Heparin Sodium (Porcine) (Heparin) 4,000 unit IVP Q6HR PRN PRN Reason: SEE COMMENTS Stop: 10/12/18 17:03 Heparin Sodium (Porcine) (Heparin) 2,000 unit IVP Q6H PRN PRN Reason: SEE COMMENTS Stop: 10/12/18 17:03 Heparin Sodium/Dextrose (Heparin 25,000 Unit/500 Ml D5w) 25,000 unit in 500 mls @ 20.031 mls/hr IVC .Q24H [facility]; Protocol Stop: 10/12/18 17:16 Last Admin: 04/13/18 20:46 Dose: 12 unit/kg/hr, 20.031 mls/hr Isosorbide Mononitrate (Imdur) 120 mg PO DAILY [facility] Stop: 10/13/18 09:01 Last Admin: 04/14/18 10:22 Dose: 120 mg Losartan Potassium (Cozaar) 25 mg PO DAILY [facility]; Protocol Stop: 10/13/18 09:01 Last Admin: 04/14/18 10:21 Dose: 25 mg Metoprolol Succinate (Toprol Xl) 50 mg PO DAILY [facility] Stop: 10/14/18 09:01 Last Admin: 04/14/18 10:22 Dose: 50 mg Mexiletine HCl (Mexitil) 150 mg PO Q8H [facility] Stop: 10/12/18 23:01 Last Admin: 04/14/18 06:14 Dose: 150 mg Naloxone HCl (Narcan) 0.4 mg IVP Q2MIN PRN PRN Reason: SEE COMMENTS Stop: 10/12/18 16:55 Oxycodone HCl (Roxicodone) 30 mg PO Q4H PRN PRN Reason: Pain Ranolazine (Ranexa) 1,000 mg PO BID [facility] Stop: 10/12/18 21:01 Last Admin: 04/14/18 10:22 Dose: 1,000 mg Spironolactone (Aldactone) 50 mg PO DAILY [facility] Stop: 10/13/18 09:01 Last Admin: 04/14/18 10:22 Dose: 50 mg - Imaging and Cardiology Echo: report reviewed Other Results: 12 hour tele: avg HR=75 SR. No events - EKG Interpretation EKG results cardiology: personally reviewed Consult Discharge Plan - Plan Referrals: Jani Slaughter MD [Primary Care Provider] -
--- NOTE | 2018-04-14 13:20 | Discharge Summary ---
<PhelpsChele - Last Filed: 04/14/18 13:35> - NOTES TO OUTPATIENT PROVIDER Notes to Outpatient Provider: Pt switched to low dose [place] and Toprol XL; Stressed importance of Sodium/fluid restricted diet; EF unchanged with most recent echo; AICD - no events or arrhythmias; cont home oxygen Orders not resulted at time of discharge: Pending orders 04/15/18 08:40 Heparin anti-factor XA UFH [COAG] Timed Date of Encounter: 04/14/18 Time of Encounter: 13:06 - Discharge Diagnosis (1) Acute on chronic systolic (congestive) heart failure Priority: Primary Status: Acute (2) Near syncope Priority: Primary Status: Acute (3) Elevated troponin Priority: Secondary Status: Acute (4) NIDHI (acute kidney injury) Priority: Secondary Status: Resolved (5) Presence of cardiac defibrillator Priority: Secondary Status: Chronic (6) COPD (chronic obstructive pulmonary disease) Priority: Secondary Status: Chronic Qualifiers: COPD type: COPD with acute exacerbation Qualified Code(s): J44.1 - Chronic obstructive pulmonary disease with (acute) exacerbation (7) CAD (coronary artery disease) Priority: Secondary Status: Chronic Qualifiers: Coronary Disease-Associated Artery/Lesion type: unspecified vessel or lesion type [place] vs. transplanted heart: [place] heart Associated angina: without angina Qualified Code(s): I25.10 - Atherosclerotic heart disease of [place] coronary artery without angina pectoris (8) HLD (hyperlipidemia) Priority: Secondary Status: Chronic Qualifiers: Hyperlipidemia type: unspecified Qualified Code(s): E78.5 - Hyperlipidemia, unspecified (9) HTN (hypertension) Priority: Secondary Status: Chronic Qualifiers: Hypertension type: essential hypertension Qualified Code(s): I10 - Essenti al (primary) hypertension Hospital course: Mr. West is a 68 year old male with PMHx COPD on 4L O2 at home, CAD, HTN, Anxiety, s/p CABG x8, CHF w/ LVEF = 35% and AICD who presented with SOB and lightheadedness. Stated he had SOB at rest, vision changes, and lightheadedness while walking. Per , pt had presented with blue lips due to SOB. Denied headache, chest pain, abdominal pain, n/v/d. Most recent stent was in 2017. In ED, troponin was 0.17 --> 0.17 --> 0.15. BNP = 727. EKG indicated no significant changes from previous EKG. CXR was negative for acute cardiopulmonary process. CT Chest was negative for PE. Pt was admitted for workup of elevated troponin and near syncope. Cardiology was consulted and advised for repeat echo. Repeat Echo was r elatively unchanged with LVEF = 30-35%, with moderately dilated left ventricle. AICD was investigated and showed no acute events or arrhythmias. Recommended low dose oral lasix, and Toprol XL to be continued outpatient with cardiology follow up outpatient. Pt also had presented with mild NIDHI, which improved with gental hydration. Plan to discharge home today. Pt currently stable in no acute distress. Follow up with PCP and outpatient cardiology. Discharge discussed with: patient Time spent discussing smoking cessation with patient: 3 to 10 minutes - Time Spent with Patient Total time spent providing and/or coordinating discharge services: Less than 30 minutes - Discharge Medications Prescriptions: Furosemide [Lasix] 40 mg PO BIDDIURETIC 30 Days #30 tablet Furosemide [Lasix] 80 mg PO BID 30 Days #60 tablet Metoprolol XL (24 HR) Succ [Toprol Xl] 50 mg PO DAILY 30 Days #30 tab.er.24h Home Medications: Aspirin Enteric Coated [Aspirin EC] 162 mg PO DAILY 05/16/15 [History] Mexiletine [Mexitil] 150 mg PO Q8HR 30 Days 01/19/17 [Rx] Ranolazine [Ranexa] 1,000 mg PO BID 30 Days 01/19/17 [Rx] Acetylcysteine [O-Dmwnjg-c-Cysteine] 600 mg PO TID 04/12/18 [History] Albuterol Sulfate [Proair Hfa] 2 puff IH Q4H PRN 04/12/18 [History] Atorvastatin [Lipitor] 40 mg PO HS 04/12/18 [History] Clopidogrel [Plavix] 75 mg PO DAILY 04/12/18 [History] Ezetimibe [Zetia] 10 mg PO DAILY 04/12/18 [History] Fluticasone/Vilanterol [Breo Ellipta 100-25 Mcg INH] 1 puff IH QAM 04/12/18 [History] Ipratropium/Albuterol Neb [Duoneb] 3 ml IH TID 04/12/18 [History] Isosorbide MONOnitrate (24 HR) [Imdur] 120 mg PO DAILY 04/12/18 [History] Losartan [Cozaar] 25 mg PO DAILY 04/12/18 [History] OxyCODONE Immed Rel [Roxicodone 30 MG] 30 mg PO Q4H PRN 04/12/18 [History] Spironolactone [Aldactone] 50 mg PO DAILY 04/12/18 [History] Tiotropium [place] [Spiriva Respimat] 2 puff IH QAM 04/12/18 [History] diazePAM [Valium] 5 mg PO Q6H PRN 04/12/18 [History] Furosemide [Lasix] 40 mg PO BIDDIURETIC 30 Days #30 tablet 04/14/18 [Rx] Furosemide [Lasix] 80 mg PO BID 30 Days #60 tablet 04/14/18 [Rx] Metoprolol XL (24 HR) Succ [Toprol Xl] 50 mg PO DAILY 30 Days #30 tab.er.24h 04/14/18 [Rx] Allergies/Adverse Reactions: Allergy/AdvReac Type Severity Reaction Status Date / Time No Known Allergies Allergy Verified 04/12/18 12:24 Date of admission: 04/12/18 16:32 Primary care physician: Jani Slaughter MD Consults: 04/12/18 16:29 Consult to Cardiology [CONS] Stat Comment: Consulting Provider: Cardiology Krista Reason for Consult: elevated trop, ef 35 Call Completed: No Discharging clinician: Chele Phelps Anticipated date of discharge: 04/14/18 - Constitutional Vitals: Temp Pulse Resp BP Pulse Ox 98.1 F 88 18 89/61 93 04/14/18 11:01 04/14/18 11:01 04/14/18 11:01 04/14/18 11:01 04/14/18 11:01 General appearance: Present: A&O X 3, pleasant, no acute distress, answers questions appropriately Exam: GEN: AOx3, NAD - pleasant on 4L O2 via NC HEENT: Atraumatic, Normocephalic, eOMI CARDIO: RRR, no murmurs, rubs, gallups RESP: CTAB, no wheezes, rales, rhonchi ABD: Soft, mildly distended, non-tender NEURO: AOx3, CN 2-12 intact; no focal deficits EXT: No lower extremity edema b/l - Patient Status Disposition: Home, Self-Care Condition: Fair Functional capacity at discharge: independent ambulation Overall status at discharge: patient is progressing back to baseline - Discharge Instructions Follow Up With: Jani Slaughter MD [Primary Care Provider] - Joel Cisneros MD [Partnered Physician] - - Diet and Activity Activity: increase activity as tolerated, resume usual activities as tolerated Diet: advance to your usual diet, low salt diet <Alexsandra Fraire - Last Filed: 04/14/18 14:58> Orders not resulted at time of discharge: Pending orders 04/15/18 08:40 Heparin anti-factor XA UFH [COAG] Timed Date of Encounter: 04/14/18 - Discharge Diagnosis (1) CAD (coronary artery disease) Status: Chronic Qualifiers: Coronary Disease-Associated Artery/Lesion type: unspecified vessel or lesion type [place] vs. transplanted heart: [place] heart Associated angina: without angina Qualified Code(s): I25.10 - Atherosclerotic heart disease of [place] coronary artery without angina pectoris (2) COPD (chronic obstructive pulmonary disease) Status: Chronic Qualifiers: COPD type: emphysema Emphysema type: panlobular Qualified Code(s): J43.1 - Panlobular emphysema (3) HTN (hypertension) Status: Chronic Qualifiers: Hypertension type: essential hypertension Qualified Code(s): I10 - Essential (primary) hypertension (4) HLD (hyperlipidemia) Status: Chronic Qualifiers: Hyperlipidemia type: unspecified Qualified Code(s): E78.5 - Hyperlipidemia, unspecified (5) DVT prophylaxis Status: Acute (6) Acute on chronic systolic (congestive) heart failure Status: Acute (7) Presence of cardiac defibrillator Status: Chronic (8) Anxiety Status: Chronic (9) Near syncope Status: Acute (10) Elevated troponin Status: Acute (11) NIDHI (acute kidney injury) Status: Resolved Hospital course: Mr. West is a 68 year old male - Time Spent with Patient Total time spent providing and/or coordinating discharge services: Date of admission: 04/12/18 16:32 Primary care physician: Jani Slaughter MD Consults: 04/12/18 16:29 Consult to Cardiology [CONS] Stat Comment: Consulting Provider: Cardiology [place] Reason for Consult: elevated trop, ef 35 Call Completed: No - Constitutional Vitals: Temp Pulse Resp BP Pulse Ox 98.1 F 88 18 89/61 93 04/14/18 11:01 04/14/18 11:01 04/14/18 11:01 04/14/18 11:01 04/14/18 11:01 - Attending Attestation I saw and assessed this patient and I agree with discharge summary per resident as above Gen - Awake, alert, oriented x 3, no acute distress HEENT - NCAT, PERRLA, EOMI, hearing grossly intact, oropharynx benign CV - RRR, normal S1 and S2, no M/R/G, no BLE edema Resp - Normal WOB, CTAB, no W/R/R GI - Soft, NT/ND, no masses, normal bowel sounds, Skin - Warm, dry, no rashes/lesions/ulcers Psych - Normal mood and affect, no depression or anxiety Plan Acute on chronic systolic CHF. On lasix BID Acute worsening of Chronic respiratory failure likely 2/2 to advanced COPD/ emphysema and chronic systolic CHF. Continue diuresis. Patient desaturated to less than 88% on 4L on exertion and will need 6L oxygen on exertion. Discussed with patient and family, and patient is agreeable to being discharged on 6L of oxygen Elevated troponins. Likely demand. No further intervention per cardiology
[2018-04-14] MEDS ORDERED: Furosemide 40 MG TABLET PO SCH (17:00)
== END 2018-04-14 16:38 | disposition home or self-care (01) ==
LOC: EMEROOARM 12:16 → 2NNU 16:32 → SUATTDRO 16:32 → INTOOBSV 16:32 → 2NENU 16:52
PROVIDERS: ADMIT Internal Medicine; ATTEND Student in an Organized Health Care Education/Training Program